=== PATIENT | female | born 1985 | race Caucasian/White ===

== ENCOUNTER 2016-06-29 15:13 | Outpatient (CLI) | payer MEDICAID | END 2016-06-29 23:59 | DX: M79.603 Pain in arm, unspecified (principal) ==

== ENCOUNTER 2016-07-04 14:55 | Outpatient (CLI) | payer MEDICAID | END 2016-07-04 14:56 | disposition home or self-care (01) | DX: M79.601 Pain in right arm (principal) ==

== ENCOUNTER 2016-11-02 18:28 | Outpatient (CLI) | payer MEDICAID | END 2016-11-02 18:29 | disposition critical access hospital (66) | LOC: EMS 18:28 | PROVIDERS: ATTEND Surgery | DX: R07.9 Chest pain, unspecified (principal) | CPT/HCPCS: A0425; A0429 ==

== ENCOUNTER 2016-11-02 18:41 | Emergency (ER) | payer MEDICAID ==
[2016-11-02 20:00] LABS: BASOPHILS # (AUTO) 0.1 10^3/uL (0.0-0.1); BASOPHILS % (AUTO) 0.5 %; EOSINOPHILS % (AUTO) 0.4 %; HGB - HEMOGLOBIN 13.6 g/dL (12.0-16.0); LYMPHOCYTES # (AUTO) 2.4 10^3/uL (1.5-3.5); MEAN CORPUSCULAR HEMOGLOBIN 29.8 pg (27.0-31.0); MEAN CORPUSCULAR HGB CONC 33.9 g/dL (32.0-36.0); MEAN CORPUSCULAR VOLUME 87.8 fL (81.0-99.0); MEAN PLATELET VOLUME 6.9 fL (7.9-10.8); MONOCYTES # (AUTO) 0.7 10^3/uL (0.0-1.0); NEUTROPHILS # (AUTO) 8.4 10^3/uL (1.5-6.6); NEUTROPHILS % (AUTO) 72.1 %; RED BLOOD COUNT 4.56 10^6/uL (4.20-5.40); RED CELL DISTRIBUTION WIDTH 13.9 % (12.0-15.0); UNCORRECTED WHITE BLOOD COUNT 11.6 x10^3/uL; WHITE BLOOD COUNT 11.6 x10^3/uL (4.8-10.8)
[2016-11-02 20:13] LABS: ALBUMIN/GLOBULIN RATIO 1.6 (1.0-2.2); BILIRUBIN,TOTAL 0.3 mg/dL (0.2-1.0); CALCIUM 9.4 mg/dL (8.5-10.3); CREATININE 0.9 mg/dL (0.4-1.0); POTASSIUM 3.4 mmol/L (3.5-5.0); TOTAL PROTEIN 7.5 g/dL (6.7-8.2)
[2016-11-02 20:46] VITALS: BP 112/75
--- NOTE | 2016-11-02 20:55 | XRAY Preliminary Report ---
Exam: XR Chest 1 View IMPRESSION: No acute intrathoracic plain film abnormality. [facility] SITE ID: [id number]
--- NOTE | 2016-11-02 20:57 | XRAY Report ---
EXAM: CHEST RADIOGRAPHY EXAM DATE: 11/02/2016 08:13 PM. CLINICAL HISTORY: Chest pain. COMPARISON: None. TECHNIQUE: 1 view. FINDINGS: Lungs/Pleura: No focal opacities evident. No pleural effusion. No pneumothorax. Mediastinum: Within exam limitations, cardiomediastinal contour is normal. Other: None. IMPRESSION: No acute intrathoracic plain film abnormality. [facility] Referring Provider Line: [phone] SITE ID: [id number]
--- NOTE | 2016-11-02 21:21 | ED Physician Documentation ---
PD HPI CHEST PAIN - Stated complaint Stated Complaint: CP/ANXIETY - Chief complaint Chief Complaint: Cardiac - History obtained from History obtained from: Patient, Family - History of Present Illness Timing - onset: How many hours ago (2) Timing - onset during: Light activity Timing - details: Gradual onset, Now resolved Quality: Pressure, Stabbing Location: Substernal, Left chest Improved by: Rest Associated symptoms: Shortness of air, Nausea, Feeling faint / dizzy, Palpitations. No: Vomiting Similar symptoms before: Has not had sx before Recently seen: Not recently seen - Additional information Additional information: Patient is a 31 year old female with a history of anxiety who is presenting to the emergency department for chest pressure and dizziness. 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 Patient reports that she was not sure if it was a panic attack or something else. patient was originally tachycardic in triage but upon my initial evaluation patient was awake, alert and asymptomatic with normal vital signs. Review of Systems Constitutional: denies: Fever, Chills, Myalgias Eyes: denies: Photophobia, Discharge Ears: denies: Ear pain, Drainage/discharge Nose: denies: Rhinorrhea / runny nose, Congestion Throat: denies: Dental pain / toothache, Sore throat Cardiac: reports: Chest pain / pressure. denies: Palpitations, Calf pain Respiratory: denies: Dyspnea, Cough, Wheezing GI: denies: Abdominal Pain, Nausea, Vomiting : denies: Dysuria, Frequency, Hesitancy, Hematuria, Vaginal bleeding Skin: denies: Rash, Lesions Musculoskeletal: denies: Neck pain, Back pain, Extremity pain Neurologic: denies: Generalized weakness, Focal weakness, Numbness Psychiatric: reports: Anxiety Immunocompromised: denies: Immunocompromised PD PAST MEDICAL HISTORY - Past Medical History Psych: Depression, Anxiety Other Past Medical History: former Percocet abuse - Past Surgical History Past Surgical History: Yes General: Cholecystectomy, 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 HEENT: Tonsil/Adenoidectomy - Present Medications Home Medications: Ambulatory Orders Medication Instructions Recorded Confirmed Sertraline HCl [Zoloft] 100 mg PO DAILY 11/19/13 11/02/16 Buprenorphine HCl/Naloxone HCl 1 tab PO DAILY 11/02/16 11/02/16 [Suboxone 8 mg-2 mg Sl Film] Ondansetron HCl [Zofran] 8 mg PO DAILY 11/02/16 11/02/16 diphenhydrAMINE [Benadryl] 750 mg PO DAILY 11/02/16 11/02/16 - Allergies Allergies/Adverse Reactions: Allergies Allergy/AdvReac Type Severity Reaction Status Date / Time Sulfa (Sulfonamide Allergy Rash Verified 01/19/16 12:54 Antibiotics) - Social History Does the pt smoke?: Yes Smoking Status: Current every day smoker Does the pt drink ETOH?: No Does the pt have substance abuse?: No - Immunizations Immunizations are current?: Yes PD ED PE NORMAL - Vitals Vital signs reviewed: Yes - General General: Alert and oriented X 3, No acute distress, Well developed/nourished - HEENT HEENT: Atraumatic, PERRL, Moist mucous membranes - Neck Neck: Supple, no meningeal sign, No JVD - Cardiac Cardiac: RRR, No murmur - Respiratory Respiratory: No respiratory distress, Clear bilaterally - Abdomen Abdomen: Soft, Non tender, Non distended - Derm Derm: Normal color, Warm and dry, No rash - Extremities Extremities: No deformity, No edema, No calf tenderness / cord - Neuro Neuro: Alert and oriented X 3, superintendent greens 2-12 intact, No motor deficit, No sensory deficit - Psych Psych: Normal mood Results - Vitals Vitals: Vital Signs - 24 hr 11/02/16 11/02/16 11/02/16 18:43 19:04 20:44 Heart Rate 113 H 102 H 82 Respiratory 18 25 H 21 Rate Blood Pressure 141/88 H 125/85 H 112/75 O2 Saturation 99 95 97 Oxygen O2 Source Room air - EKG (time done) 1901 Rate: Rate (enter#) (104) Rhythm: Sinus tachycardia Sells: Normal Intervals: Normal CA QRS: Normal Compare to prior EKG: Old EKG unavailable - Labs Labs: Laboratory Tests 11/02/16 11/02/16 11/02/16 19:50 19:50 19:50 WBC 11.6 H RBC 4.56 Hgb 13.6 Hct 40.0 MCV 87.8 MCH 29.8 MCHC 33.9 RDW 13.9 Plt Count 333 MPV 6.9 L Neut # 8.4 H Lymph # 2.4 Garden # 0.7 Eos # 0.0 Baso # 0.1 Absolute Nucleated RBC 0.01 Nucleated RBCs 0.0 Sodium 138 Potassium 3.4 L Chloride 106 Carbon Dioxide 23 Anion Gap 9.0 BUN 14 Creatinine 0.9 Estimated GFR (MDRD) 73 L Glucose 98 Calcium 9.4 Total Bilirubin 0.3 AST 20 ALT 22 Alkaline Phosphatase 81 Troponin I < 0.04 Total Protein 7.5 Albumin 4.6 Globulin 2.9 Albumin/Globulin Ratio 1.6 Lipase 22 - Rads (name of study) chest x-ray Radiology: Final report received (normal chest x-ray) PD MEDICAL DECISION MAKING - ED course Complexity details: reviewed old records, reviewed results, re-evaluated patient , considered differential, d/w patient, d/w family ED course: Patient was seen and examined at bedside. Patient had already started feeling better. IV access had been gained and labs had been drawn. ekg had showed sinus tach but patient was in a normal sinus rhthym at 78 bpm. Patient's oxygenation was 100% and patient was PERC negative. Patient's diagnostics including troponin and chest x-ray were all within normal limits. Patient had a low HEART and MELVINA score. No further work up was necessary at this time and patient was stable for discharge with outpatient follow up. Departure - Departure Disposition: 01 Home, Self Care Clinical Impression: Atypical chest pain Condition: Good Instructions: ED Chest Pain NonCardiac Follow-Up: primary,care provider [Other] - Within 1 week Comments: Your diagnostics today were within normal limits indicating that it is unlikely to be cardiac in nature. Although it was within normal limits today it is till prudent to follow up with your primary care physician. You can return to the emergency department at any time for new, worsening or uncontrollable symptoms. Discharge Date/Time: 11/02/16 22:30
== END 2016-11-02 22:30 | disposition home or self-care (01) ==
LOC: EDUNIT# → ED 18:41
DX: R07.89 Other chest pain (principal)
CPT/HCPCS: 36415; 71010; 80053; 83690; 84484; 85025; 93005; 99283; 99285

== ENCOUNTER 2021-06-06 14:48 | Outpatient (CLI) | payer MEDICAID | END 2021-06-06 23:59 | disposition home or self-care (01) | LOC: LAB.N 14:48 | PROVIDERS: ATTEND Physician Assistant | DX: R39.9 Unspecified symptoms and signs involving the genitourinary system (principal) | CPT/HCPCS: 87077; 87086; 87181 ==

== ENCOUNTER 2022-11-16 08:00 | Outpatient (CLI) | payer SELFPAY ==
[2022-11-17 14:06] LABS: BACTERIAL VAGINOSIS DNA NEGATIVE (NEGATIVE); CANDIDA GLABRATA DNA NEGATIVE (NEGATIVE); CANDIDA GROUP DNA NEGATIVE (NEGATIVE); CANDIDA KRUSEI DNA NEGATIVE (NEGATIVE); TRICHOMONAS VAGINALIS DNA NEGATIVE (NEGATIVE)
[2022-11-17 16:15] LABS: CHLAMYDIA TRACHOMATIS DNA NEGATIVE (NEGATIVE); NEISSERIA GONORRHOEAE DNA NEGATIVE (NEGATIVE)
== END 2022-11-16 23:59 | disposition home or self-care (01) ==
LOC: LAB.N 08:00
PROVIDERS: ATTEND Registered Nurse
DX: N89.8 Other specified noninflammatory disorders of vagina (principal)
CPT/HCPCS: 81514; 87491; 87591; 87661

== ENCOUNTER 2023-06-05 18:40 | Outpatient (CLI) | payer MEDICAID | END 2023-06-05 23:59 | disposition critical access hospital (66) | LOC: EMS 18:40 | DX: L08.9 Local infection of the skin and subcutaneous tissue, unspecified (principal) | CPT/HCPCS: A0425; A0429; A0999 ==

== ENCOUNTER 2023-06-05 18:58 | Inpatient (IN) | payer MEDICAID, OTHER ==
--- NOTE | 2023-06-05 19:20 | ED Physician Documentation ---
PD HPI UPPER EXT INJURY - Stated complaint Stated Complaint: LEFT SHOULDER PAIN/INFECTION - Chief complaint Chief Complaint: Ext Problem - History obtained from History obtained from: Patient - Additonal information Additional information: 38-year-old woman who is undomiciled and is using IV drugs. She actually does not know what drugs she used stating that "my boyfriend just inject them into me. She is homeless on the streets. She has been injecting in the left arm and now has an infection in the left deltoid. She cannot say how long it has been going on. She does feel sick and feverish. She denies any personal history of MRSA. 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 She is poorly kempt.) - Cardiac Cardiac: RRR, No murmur - Respiratory Respiratory: No respiratory distress, Clear bilaterally - Abdomen Abdomen: Normal bowel sounds, Soft, Non tender - Extremities Extremities: Other (There is a very large abscess over the left deltoid, fluctuant. Measures probably 15 to 20 cm x 10 to 15 cm) - Neuro Neuro: Alert and oriented X 3 - Psych Psych: Normal mood, Normal affect Results - Vitals Vitals: Vital Signs - 24 hr 06/05/23 06/05/23 06/05/23 19:05 20:23 20:31 Temperature 37.1 C 98.9 C H Heart Rate 107 H 103 H 100 Respiratory 20 20 20 Rate Blood Pressure 122/103 H 122/90 H 119/92 H O2 Saturation 98 100 100 If not protocol : Oxygen Flow, liters/minute 06/05/23 06/05/23 06/05/23 20:34 20:38 20:42 Temperature Heart Rate 112 H 126 H 128 H Respiratory 18 23 24 Rate Blood Pressure 120/86 H 146/109 H 145/103 H O2 Saturation 100 95 99 If not protocol 15 15 : Oxygen Flow, liters/minute Oxygen O2 Source Room air - Labs Labs: Laboratory Tests 06/05/23 06/05/23 06/05/23 19:37 19:37 19:37 WBC 16.7 H RBC 4.94 Hgb 13.8 Hct 40.9 MCV 82.8 MCH 27.9 MCHC 33.7 RDW 12.3 Plt Count 349 MPV 8.7 Neut # (Auto) 13.5 H Lymph # (Auto) 1.5 [place] # (Auto) 1.5 H Eos # (Auto) 0.1 Baso # (Auto) 0.1 Absolute Nucleated RBC 0.00 Nucleated RBC % 0.0 Sodium 134 L Potassium 3.5 Chloride 97 L Carbon Dioxide 25 Anion Gap 12.0 BUN 12 Creatinine 0.7 Estimated GFR (MDRD) 94 Glucose 89 Lactic Acid 1.2 Calcium 9.5 Total Bilirubin 0.6 AST 13 ALT 8 L Alkaline Phosphatase 88 Total Protein 7.6 Albumin 4.0 Globulin 3.6 Albumin/Globulin Ratio 1.1 Urine Color Urine Clarity Urine pH Ur Specific Russell Urine Protein Urine Glucose (UA) Urine Ketones Urine Occult Blood Urine Nitrite Urine Bilirubin Urine Urobilinogen Ur Leukocyte Esterase Urine RBC Urine WBC Ur Squamous Epith Cells Amorphous Sediment Urine Bacteria Ur Microscopic Review Urine Culture Comments Urine HCG, Qual Urine Opiates Screen Ur Buprenorphine Scrn Ur Oxycodone Screen Urine Methadone Screen Ur Barbiturates Screen Ur Tricyclics Screen Ur Phencyclidine Scrn Ur Amphetamine Screen U Methamphetamines Scrn U Benzodiazepines Scrn Urine Cocaine Screen U Cannabinoids Screen Ur Drug Screen Comment 06/05/23 19:56 WBC RBC Hgb Hct MCV MCH MCHC RDW Plt Count MPV Neut # (Auto) Lymph # (Auto) [place]lin # (Auto) Eos # (Auto) Baso # (Auto) Absolute Nucleated RBC Nucleated RBC % Sodium Potassium Chloride Carbon Dioxide Anion Gap BUN Creatinine Estimated GFR (MDRD) Glucose Lactic Acid Calcium Total Bilirubin AST ALT Alkaline Phosphatase Total Protein Albumin Globulin Albumin/Globulin Ratio Urine Color DARK YELLOW Urine Clarity CLOUDY Urine pH 6.0 Ur Specific Russell 1.025 Urine Protein 30 H Urine Glucose (UA) NEGATIVE Urine Ketones 15 H Urine Occult Blood NEGATIVE Urine Nitrite NEGATIVE Urine Bilirubin SMALL H Urine Urobilinogen 1 (NORMAL) Ur Leukocyte Esterase SMALL H Urine RBC 0-5 Urine WBC 6-10 H Ur Squamous Epith Cells MANY Squamous H Amorphous Sediment Rare Urine Bacteria Moderate H Ur Microscopic Review INDICATED Urine Culture Comments NOT INDICATED Urine HCG, Qual NEGATIVE Urine Opiates Screen NEGATIVE Ur Buprenorphine Scrn NEGATIVE Ur Oxycodone Screen NEGATIVE Urine Methadone Screen NEGATIVE Ur Barbiturates Screen NEGATIVE Ur Tricyclics Screen NEGATIVE Ur Phencyclidine Scrn NEGATIVE Ur Amphetamine Screen POSITIVE H U Methamphetamines Scrn POSITIVE H U Benzodiazepines Scrn NEGATIVE Urine Cocaine Screen NEGATIVE U Cannabinoids Screen NEGATIVE Ur Drug Screen Comment N Procedures - Abscess I&D (location) l DELTOID Preparation: Lidocaine 1% Incision: Incised with scalpel, Purulent drainage Other: Pt tolerated well, Dressing applied, Antibiotic prescribed, Other (Risk and benefits were discussed including scarring, bleeding, nerve injury, and risk of sedation and she signed formal consent. 500 mL of foul-smelling pus was vacuumed into suction. Packed with Kerlix.) - Procedural sedation Sedation prep: Informed consent, Time out completed, PE performed, ASA 2 - mild disease Sedation Medications: ketamine (200MG), versed (2MG) Mallampati classification: I Patient status during sedation: Unresponsive Sedation recovery: Recovered uneventfully Time in sedation (Minutes): 15 PD Medical Decision Making - ED course ED course: 38-year-old homeless IV drug user presents with very large deltoid abscess. It is a shooters abscess. She has a white count of 16,000, and does appear ill. She was sedated and a large I&D was done with total of 500 mL of pus into the vacuum container and packed with Kerlix. I discussed the case by phone with Dr. Ward who will follow along, for wound care, he is our general surgeon. Telehealth consultation placed at 8:50 PM. Departure - Departure Disposition: 66 [facility] DC/Xfer Clinical Impression: IV drug user, Abscess of deltoid region, Homeless Condition: Serious Forms: PCP List
[2023-06-05] MEDS: HYDROmorphone 1 MG/ML CARPUJECT IVP STA (19:40)
[2023-06-05] MEDS: SODIUM CHLORIDE 0.9% 1,000 ML IV STA (19:45)
[2023-06-05 19:59] LABS: BILIRUBIN,URINE SMALL (NEGATIVE); GLUCOSE, URINE (UA) NEGATIVE (NEGATIVE); KETONES,URINE (UA) 15 mg/dL (NEGATIVE); LEUKOCYTE ESTERASE, URINE SMALL (NEGATIVE); NITRITE,URINE NEGATIVE (NEGATIVE); OCCULT BLOOD,URINE NEGATIVE (NEGATIVE); PROTEIN,URINE 30 mg/dL (NEGATIVE); UROBILINOGEN,URINE 1 (NORMAL) E.U./dL (NORMAL)
[2023-06-05 20:02] LABS: BASOPHILS # (AUTO) 0.1 10^3/uL (0.0-0.1); BASOPHILS % (AUTO) 0.4 %; EOSINOPHILS # (AUTO) 0.1 10^3/uL (0.0-0.7); EOSINOPHILS % (AUTO) 0.8 %; HCT - HEMATOCRIT 40.9 % (37.0-47.0); HGB - HEMOGLOBIN 13.8 g/dL (12.0-16.0); LYMPHOCYTES # (AUTO) 1.5 10^3/uL (1.5-3.5); LYMPHOCYTES % (AUTO) 8.7 %; MEAN CORPUSCULAR HEMOGLOBIN 27.9 pg (27.0-31.0); MEAN CORPUSCULAR HGB CONC 33.7 g/dL (32.0-36.0); MEAN CORPUSCULAR VOLUME 82.8 fL (81.0-99.0); MEAN PLATELET VOLUME 8.7 fL (7.9-10.8); MONOCYTES # (AUTO) 1.5 10^3/uL (0.0-1.0); MONOCYTES % (AUTO) 8.9 %; NEUTROPHILS # (AUTO) 13.5 10^3/uL (1.5-6.6); NEUTROPHILS % (AUTO) 80.5 %; PLT - PLATELET COUNT 349 10^3/uL (130-450); RED BLOOD COUNT 4.94 10^6/uL (4.20-5.40); RED CELL DISTRIBUTION WIDTH 12.3 % (12.0-15.0); WHITE BLOOD COUNT 16.7 x10^3/uL (4.8-10.8)
[2023-06-05 20:03] LABS: CLARITY,URINE CLOUDY (CLEAR); HCG UR QUAL NEGATIVE
[2023-06-05 20:13] LABS: AMORPHOUS SEDIMENT,UR Rare /LPF; BACTERIA,URINE Moderate /HPF (None Seen); COCAINE SCREEN URINE NEGATIVE (NEGATIVE); METHAMPHETAMINES SCREEN, URINE POSITIVE (NEGATIVE); OPIATE SCREEN, URINE NEGATIVE (NEGATIVE); RBC,URINE 0-5 /HPF (0-5); SQUAMOUS EPITHELIAL CELL,UR MANY Squamous (<= Few); THC CANNABINOID SCREEN, URINE NEGATIVE (NEGATIVE)
[2023-06-05 20:14] LABS: AMPHETAMINE SCREEN,URINE POSITIVE (NEGATIVE); BARBITURATE SCREEN,UR NEGATIVE (NEGATIVE); BENZODIAZEPINES SCREEN, URINE NEGATIVE (NEGATIVE); BUPRENORPHINE SCREEN, URINE NEGATIVE (NEGATIVE); METHADONE SCREEN, URINE NEGATIVE (NEGATIVE); OXYCODONE SCREEN, URINE NEGATIVE (NEGATIVE); TRICYCLIC ANTIDEPRESSANT,URINE NEGATIVE (NEGATIVE)
[2023-06-05 20:15] LABS: ALBUMIN/GLOBULIN RATIO 1.1 (1.0-2.2); BILIRUBIN,TOTAL 0.6 mg/dL (0.2-1.0); CALCIUM 9.5 mg/dL (8.5-10.3); CREATININE 0.7 mg/dL (0.6-1.3); POTASSIUM 3.5 mmol/L (3.5-4.5); TOTAL PROTEIN 7.6 g/dL (6.4-8.9)
[2023-06-05] MEDS: MIDAZOLAM 2 MG/2 ML VIAL IVP STA (20:26)
[2023-06-05] MEDS: KETAMINE 500 MG/10 ML VIAL IVP STA (20:28)
[2023-06-05] MEDS: BUFFERED LIDOCAINE 10 ML SYRINGE SUBQ STA (20:29)
[2023-06-05] MEDS ORDERED: VANCOMYCIN 1 GM VIAL ONE (20:46)
[2023-06-05] MEDS: VANCOMYCIN INJ 1.25 GM in SODIUM CHLORIDE 0.9% 500 ML IV STA (20:56)
--- NOTE | 2023-06-05 21:01 | HISTORY & PHYSICAL EXAMINATION ---
Chief Complaint - Chief Complaint Chief Complaint: left arm pain History of Present Illness - Admitted From Admitted From:: homeless - History of Present Illness HPI Comment/Other: 38 y/o F presented to the ED with left upper arm swelling and pain. She does not know when it started but she is IVDU and injects in that area regularly. Pt complains of chills but denies cp, sob, n/v/d/abd pain In the ED, she was found to have a large 20x10 cm fuctuant mass which was I&D performed and 500 ML pus removed. Per ED doc area appeared contained with no concern for nec fasc and it was discussed with surgeon recreational facilities motel manager who recommended admission and antibiotics. 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 HEENT: reports: Tonsil/Adenoidectomy - POLST Patient has POLST: No Meds/Allgy - Allergies Allergies/Adverse Reactions: Allergies Allergy/AdvReac Type Severity Reaction Status Date / Time Sulfa (Sulfonamide Allergy Rash Verified 06/05/23 19:19 Antibiotics) Review of Systems - Other Findings Other Findings: ros negative except for HPI Exam - Vital Signs Vital Signs: Vital Signs x48h Temp Pulse Resp BP Pulse Ox O2 Flow Rate 06/05/23 20:42 128 H 24 145/103 H 99 06/05/23 20:38 126 H 23 146/109 H 95 15 06/05/23 20:34 112 H 18 120/86 H 100 15 06/05/23 20:31 98.9 C H 100 20 119/92 H 100 06/05/23 20:23 103 H 20 122/90 H 100 06/05/23 19:05 37.1 C 107 H 20 122/103 H 98 - Physical Exam General Appearance: positive: No acute distress Eyes Bilateral: positive: Normal inspection ENT: positive: ENT inspection nml Neck: positive: Nml inspection Respiratory: positive: Chest non-tender Cardiovascular: positive: Regular rate & rhythm Abdomen: positive: Non-tender Skin: positive: Other (left deltoid area dressed now after I&D) Conclusion/Plan - Lab Results Fish Bones: 06/05/23 19:37 06/05/23 19:37 - Other Other Results/Comments: 38 y/o F # left deltoid abcess and cellulitis in homeless pt with IVDU: s/p I&D, wound care, surgery consulted, iv vanc and zosyn follow culture # pain control # IVDU: pt does not know exactly what she injects as given to her by b/f. watch for withdrawals # full code I performed this consultation using real-andres telehealth tools including a live video connection between my location and the patient's location. As the provider for this telehealth service, I attest that I introduced myself to the patient and/or the family, provided my credentials, disclosed my location and determined that based on my review of patient's chart and/or discussion with members of the patient's treatment team, telemedicine via real time, 2 way, interactive audio and video platform is an appropriate and effective means of providing service. The patient/family and I mutually agree that this visit is appropriate for telemedicine as well. Patients have been informed of and agreed to telemedicine management by partnership of [employer] and hospital administration, knowing the limitations of telemedicine. Some elements of this visit were assisted with the audiovisual technology and the bedside nurse. Total time is 45 minutes of which greater than 50% was spent in direct patient care. I answered all medical questions to the best of my ability.
[2023-06-05] MEDS ORDERED: SODIUM CHLORIDE FLUSH 0.9% 10 ML SYRINGE IVP PRN (21:11)
[2023-06-05] MEDS ORDERED: SODIUM CHLORIDE 0.9% IV SCH (22:00)
[2023-06-05] MEDS ORDERED: VANCOMYCIN IV SCH (22:00)
[2023-06-05] MEDS: MORPHINE 2 MG/ML CARPUJECT IVP PRN (22:24)
[2023-06-06] MEDS: PIPERACILLIN/TAZOBACTAM 3.375 GM in SODIUM CHLORIDE 0.9% MINIBAG 100 ML IV STA (00:40)
[2023-06-06] MEDS: oxyCODONE 5 MG TABLET PO PRN (00:42)
[2023-06-06] MEDS: SODIUM CHLORIDE FLUSH 0.9% 10 ML SYRINGE IVP SCH (00:44)
[2023-06-06] MEDS ORDERED: PIPERACILLIN/TAZOBACTAM 3.375 GM in SODIUM CHLORIDE 0.9% MINIBAG 100 ML IV SCH (02:00)
[2023-06-06] MEDS: ACETAMINOPHEN 325 MG TABLET PO PRN (02:48)
[2023-06-06] MEDS: PIPERACILLIN/TAZOBACTAM 3.375 GM in SODIUM CHLORIDE 0.9% MINIBAG 100 ML IV SCH (04:58)
[2023-06-06 09:03] VITALS: BP 104/63; O2SAT 98
[2023-06-06] MEDS: VANCOMYCIN INJ 1 GM in SODIUM CHLORIDE 0.9% 250 ML IV SCH (09:11)
--- NOTE | 2023-06-06 13:18 | PHARMACY PROGRESS NOTE ---
- Therapy Status Vancomycin regimen day #: 2 Therapy status: Awaiting steady state Basis for treatment: Empirical Treatment indication: CELLULITIS Trough goal: 10-15 Concurrent antibiotics: ZOSYN - DEZ Risk Acute Kidney Injury risk factors: Piperacillin/Tozobactam - Monitoring and Recommendation Clinical response to treatment: I&O Previous 24 hours 06/04/23 06/05/23 06/06/23 23:59 23:59 23:59 Intake Total 11.133 Balance 11.133 Lab Results 06/05/23 19:37 BUN 12 Creatinine 0.7 Estimated GFR (MDRD) 94 Areas for additional monitoring: IV to PO when appropriate, Therapy de- escalation based on culture results, Acute Kidney Injury Pharmacy recommendation: Continue current regime
--- NOTE | 2023-06-06 13:28 | CONSULTATION NOTE ---
Referring Provider Name of Referring Provider:: Dr. Emory Henry Consult Date: 06/06/23 Chief Complaint - Chief Complaint Chief Complaint: Left deltoid open wound following incision and drainage of abscess History of Present Illness - Admitted From Admitted From:: Emergency department - History Obtained From Records Reviewed: Yes History obtained from: Primarily the chart as the patient is not thoroughly conversational Exam Limitations: Patient's mental state - History of Present Illness HPI Comment/Other: Patient is an unfortunate 38-year-old female who is homeless and an illicit drug user. Review of her tox screen indicates methamphetamines/amphetamines. She skin pops. In my conversations with her today she is aware of where she is and who she is but keeping her focused on topics is exceedingly difficult. 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 Exam - Vital Signs Reviewed Vital Signs: Yes Vital Signs: Vital Signs x48h Temp Pulse Pulse Resp BP Pulse Ox 06/06/23 08:15 36.6 C 94 18 104/63 98 06/06/23 05:29 78 22 - Physical Exam Extremities: positive: Other (I performed a very targeted physical examination looking almost solely at the wound in the left upper aspect of her shoulder (deltoid). The dressing was removed as was the packing. The packing and fibrin no purulent material on it but the wound itself was exceptionally clean. This was packed with) Conclusion and Plan - Lab Results Laboratory Results 06/05/23 19:56: Urine Color DARK YELLOW, Urine Clarity CLOUDY, Urine pH 6.0, Ur Specific [place] 1.025, Urine Protein 30 H, Urine Glucose (UA) NEGATIVE, Urine Ketones 15 H, Urine Occult Blood NEGATIVE, Urine Nitrite NEGATIVE, Urine Bilirubin SMALL H, Urine Urobilinogen 1 (NORMAL), Ur Leukocyte Esterase SMALL H, Urine RBC 0-5, Urine WBC 6-10 H, Ur Squamous Epith Cells MANY Squamous H, Amorphous Sediment Rare, Urine Bacteria Moderate H, Ur Microscopic Review INDICATED, Urine Culture Comments NOT INDICATED, Urine HCG, Qual NEGATIVE, Urine Opiates Screen NEGATIVE, Ur Buprenorphine Scrn NEGATIVE, Ur Oxycodone Screen NEGATIVE, Urine Methadone Screen NEGATIVE, Ur Barbiturates Screen NEGATIVE, Ur Tricyclics Screen NEGATIVE, Ur Phencyclidine Scrn NEGATIVE, Ur Amphetamine Screen POSITIVE H, U Methamphetamines Scrn POSITIVE H, U Benzodiazepines Scrn NEGATIVE, Urine Cocaine Screen NEGATIVE, U Cannabinoids Screen NEGATIVE, Ur Drug Screen Comment N 06/05/23 19:37: Lactic Acid 1.2 06/05/23 19:37: Sodium 134 L, Potassium 3.5, Chloride 97 L, Carbon Dioxide 25, Anion Gap 12.0, BUN 12, Creatinine 0.7, Estimated GFR (MDRD) 94, Glucose 89, Calcium 9.5, Total Bilirubin 0.6, AST 13, ALT 8 L, Alkaline Phosphatase 88, Total Protein 7.6, Albumin 4.0, Globulin 3.6, Albumin/Globulin Ratio 1.1 06/05/23 19:37: WBC 16.7 H, RBC 4.94, Hgb 13.8, Hct 40.9, MCV 82.8, MCH 27.9, MCHC 33.7, RDW 12.3, Plt Count 349, MPV 8.7, Neut # (Auto) 13.5 H, Lymph # (Auto) 1.5, Curry # (Auto) 1.5 H, Eos # (Auto) 0.1, Baso # (Auto) 0.1, Absolute Nucleated RBC 0.00, Nucleated RBC % 0.0 - Diagnosis Diagnosis: Large subcutaneous abscess due to skin popping with illicit drugs. This has been drained and left open to heal by secondary intention. - Consultation Note Consultation Note: I remove the packing today and repacked it with saline moistened gauze. Normally if the patient's social situation would allow it this would heal faster with a wound VAC however considering her social situation I do not think that a wound VAC would be appropriately taken care of it would likely be a liability. As such I would recommend continue wet-to-dry dressing changes packing the wound loosely to ensure that it remains open and heals from the bottom up. In addition I recommend that the patient have the packing removed every single day and wash the wound with soap and water allowing soapy water to enter the wound and exit the wound. After the patient's shower the patient should have the wound packed. I appreciate the opportunity to precipitate in this patient's care. CPT 78208 - Plan Plan: Continued wet-to-dry dressing changes until the wound heals by secondary intention. Attempt to get the patient drug-free and domiciled.
--- NOTE | 2023-06-06 18:49 | PROVIDER PROGRESS NOTE ---
Progress Note Gill Lazcano left hospital AGAINST MEDICAL ADVICE this afternoon. She refused to sign the AGAINST MEDICAL ADVICE form.
--- NOTE | 2023-06-06 21:15 | DISCHARGE SUMMARY ---
"Discharge Summary Admit Date: 06/05/23 Discharge Date: 06/06/23 Discharging Provider: Emory Davila MD Code Status: Attempt Resuscitation Condition at Discharge: Fair Discharge Disposition: 01 Home, Self Care - DIAGNOSES Admission Diagnoses: 1. Deltoid Abscess Discharge Diagnoses with Status of Each Condition: 1. Deltoid Abscess 2. Methamphetamine Abuse - HPI History of Present Illness: Per Dr. Byron Pisano history and and physical: 38 y/o F presented to the ED with left upper arm swelling and pain. She does not know when it started but she is IVDU and injects in that area regularly. Pt complains of chills but denies cp, sob, n/v/d/abd pain In the ED, she was found to have a large 20x10 cm fuctuant mass which was I&D performed and 500 ML pus removed. Per ED doc area appeared contained with no concern for nec fasc and it was discussed with surgeon correctional medicine physician who recommended admission and antibiotics. - CONSULTS | PROCEDURES Consultations: 06/06/23 General Surgery Procedures: 06/05/2023 Incision and drainage of deltoid abscess - HOSPITAL COURSE Hospital Course: Gill Lazcano Was admitted to the hospital and treatment was initiated with broad-spectrum antibiotics after incision and drainage of her deltoid abscess.Broad-spectrum antibiotic coverage was initiated with Zosyn and vancomycin. The patient was evaluated by Dr. Ward of general surgery and he recommended continuing wet-to-dry dressing changes and packing the wound loosely to ensure healing from the bottom up. Unfortunately, the patient decided to leave AGAINST MEDICAL ADVICE. She was given the opportunity to sign the AGAINST MEDICAL ADVICE paperwork and she refused. - ALLERGIES Allergies/Adverse Reactions: Allergies Allergy/AdvReac Type Severity Reaction Status Date / Time Sulfa (Sulfonamide Allergy Rash Verified 06/06/23 20:05 Antibiotics) - MEDICATIONS Home Medications: Ambulatory Orders Medication Instructions Recorded Confirmed No Known Home Medications 06/06/23 06/06/23 - PHYSICAL EXAM AT DISCHARGE General Appearance: positive: Other (Patient was not examined because she left AGAINST MEDICAL ADVICE.) - LABS Result Diagrams: 06/05/23 19:37 06/05/23 19:37 - FOLLOW UP Follow Up: Patient left AGAINST MEDICAL ADVICE. - TIME SPENT Time Spent in Discharge (Minutes): 20"
== END 2023-06-06 14:10 | disposition home or self-care (01) | DRG 603 ==
LOC: EDUNIT# → ED 18:58 → MS2 21:12
PROVIDERS: ADMIT Hospitalist; ATTEND Internal Medicine
PROC: 0J9F0ZZ Drainage of Left Upper Arm Subcutaneous Tissue and Fascia, Open Approach (ICD-10-PCS; principal; 2023-06-05)
DX: L02.414 Cutaneous abscess of left upper limb (principal); Z59.02 Unsheltered homelessness; F15.10 Other stimulant abuse, uncomplicated; F17.200 Nicotine dependence, unspecified, uncomplicated; Z32.02 Encounter for pregnancy test, result negative; Z88.2 Allergy status to sulfonamides; Z90.49 Acquired absence of other specified parts of digestive tract; Z98.51 Tubal ligation status
CPT/HCPCS: 36415; 80053; 80306; 81001; 81025; 83605; 85025; 87040; 87070; 87205; A9270; J1170; J3370; 81003; 87086

== ENCOUNTER 2023-06-06 19:51 | Outpatient (CLI) | payer MEDICAID | END 2023-06-06 23:59 | disposition critical access hospital (66) | LOC: EMS 19:51 | DX: S41.112A Laceration without foreign body of left upper arm, initial encounter (principal); X58.XXXA Exposure to other specified factors, initial encounter; Y92.238 Other place in hospital as the place of occurrence of the external cause; R45.851 Suicidal ideations; F15.90 Other stimulant use, unspecified, uncomplicated | CPT/HCPCS: A0425; A0429; A0999 ==

== ENCOUNTER 2023-06-06 19:53 | Observation (INO) | payer MEDICAID ==
--- NOTE | 2023-06-06 19:53 | ED Physician Documentation ---
PD HPI UPPER EXT INJURY - Stated complaint Stated Complaint: L ARM WOUND
--- NOTE | 2023-06-06 19:56 | ED Physician Documentation ---
History of Present Illness - Stated complaint Stated Complaint: L ARM WOUND - History obtained from History obtained from: Patient, EMS - Additonal information Additional information: BIBA. HPI from EMS, patient. I have also reviewed notes from her ER visit yesterday, surgical consult note from earlier today. Patient was in this emergency department yesterday for the left upper extremity abscess over the left deltoid. Patient is undomiciled, injects drugs ("skin pops", per surgical consult note that I reviewed), and this is thought to be the reason for the left deltoid abscess for which she presented to this ER yesterday. The abscess was drained in the emergency department but due to its size and depth, as well as considering patient's limited access to medical care and questionable ability to care for the wound herself, she was admitted to [facility]. She was receiving IV antibiotics on a scheduled basis but left abruptly AGAINST MEDICAL ADVICE this afternoon. Tonight, she went to a local police station requesting an ambulance to take her back to the hospital. Apparently, she was very reluctant to discuss much regarding her HPI and recent visit with police and with EMS. However, she did indicate to EMS that she had used "uppers" (per EMS) after leaving the hospital this afternoon. On my H&P, she is providing few answers to my questions, but is answering enough of my questions to provide adequate information for purposes of this ED evaluation (mostly with nodding/shaking her head, but occasionally verbalizes, as well). She tells me "I left before, it was a stupid decision".I asked her if she is interested in further treatment, specifically inpatient, and she indicates that she is agreeable to inpatient treatment at this time. She answers in the affirmative every time I ask (I asked her this question 3 differe nt times during H&P). 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: Tubal ligation HEENT: Tonsil/Adenoidectomy - Present Medications Home Medications: Ambulatory Orders Medication Instructions Recorded Confirmed No Known Home Medications 06/06/23 06/06/23 - Allergies Allergies/Adverse Reactions: Allergies Allergy/AdvReac Type Severity Reaction Status Date / Time Sulfa (Sulfonamide Allergy Rash Verified 06/06/23 20:05 Antibiotics) - Social History Does the pt smoke?: Yes Smoking Status: Current every day smoker Does the pt drink ETOH?: No Does the pt have substance abuse?: Yes - Immunizations Immunizations are current?: Yes - POLST Patient has POLST: No PD ED PE NORMAL - Vitals Vital signs reviewed: Yes - General General: Other (dissheveled; eye contact is intermittent/fleeting. ) - HEENT HEENT: PERRL, EOMI - Cardiac Cardiac: RRR, No murmur - Respiratory Respiratory: No respiratory distress, Clear bilaterally PD ED PE EXPANDED - Extremities LJ UE/Hands Visual: 1 - laceration (surgical incision site is 6 cm length, 1-2 cm wide, 1 cm depth (down to fascia overlying muscle). there is scant purulent drainage on gauze (both packed into wound as well as the dressing over the wound)) Results - Vitals Vitals: Vital Signs - 24 hr 06/06/23 19:59 Temperature 36.7 C Heart Rate 94 Respiratory 15 Rate Blood Pressure 114/83 H O2 Saturation 99 Oxygen O2 Source Room air PD Medical Decision Making - ED course Complexity details: reviewed old records, considered differential, d/w patient ED course: Patient returns to [facility] after leaving several hours ago having had left upper extremity abscess drained in the ED with subsequent admission, was receiving IV antibiotics when she left AMA earlier today. Patient is exhibiting odd behavior but does express to me that she is agreeable to readmission to [facility]; I believe she would benefit from this for ongoing IV antibiotics, dressing changes and further wound care. I discussed this case with the [facility] practitioner who accepts patient for admission to [facility]. There was extensive delay in getting the patient admitte d due to difficulty obtaining IV access. ED RNs were unable to establish peripheral IV despite multiple attempts.Based on my exam and my discussion with the emergency department nurses, the difficulty obtaining access appears to be combination of difficulty finding peripheral veins (possibly due to long-term IV drug use) as well as patient exhibiting gradually increasing anxiety, hyperkinetic movements and twitching. I discussed with the patient the necessity of obtaining IV access in order to resume intravenous antibiotics. The patient says she understands this but says she is feeling very anxious and insists that her movements are not voluntary. I explained to her that I can order an injection of lorazepam; I explained what this medication is and that, in this particular case, it can help with her anxiety and her writhing and frequent twitching movements. She says she would like this medication. She was given 2 mg IM lorazepam. Note that the patient was not nearly as anxious and hyperkinetic when she first arrived; thus, I would be more suspicious of withdrawal from a substance rather than effect of acute use (in the latter case, would expect symptoms to be most pronounced on ED arrival). After sufficient time for the lorazepam to have taken effect, the ED nurses tried again to obtain IV access but ran into the same problems; in fact, the patient was even more anxious and hyperkinetic at that point. Both ED RNs and myself were unable to obtain IV access. Again, this seems to be due to a combination of possibly sclerosed veins but also due to difficulty with patient being able to lie still. The patient tells me that the lorazepam "did not do anything". I then r ecommended to her that we give her a dose of Zyprexa as an injection; I again explained what this medication is and what the desired effect is (anxiolysis and that patient is able to lie still to enable peripheral IV placement). Again, patient says she would very much like the medication and is wanting the sedative effect and the anxiolysis, as well. I contacted anesthesiology on-call (Yareli) to help with IV access. She graciously came to the ED to obtain IV access but patient was still not adequately calm and still twitching and moving around. Patient continues to insist she is trying to lie still but cannot. I then discussed with the patient the option of a yet- stronger medication, specifically ketamine. As was the case with the lorazepam and the Zyprexa, the ketamine is not being given as a chemical restraint; rather, it is being given after discussion with the patient and her express consent and desire to have these medications in order to achieve anxiolysis so that she is able to lie still and IV access can be obtained. Thus, patient is given 3 mg/kg IM ketamine. Fortunately, this finally resulted in adequate anxiolysis and cooperative behavior such that anesthesiology was able to place left upper extremity IV access. Patient's vital signs remained stable throughout ED stay, there was no respiratory depression nor desaturation. She recovered uneventfully and was transferred to the floor. Departure - Departure Disposition: [facility] DC/Xfer Clinical Impression: Abscess of left arm Condition: Good Discharge Date/Time: 06/07/23 01:02
--- NOTE | 2023-06-06 21:33 | HISTORY & PHYSICAL EXAMINATION ---
Chief Complaint - Chief Complaint Chief Complaint: left cellulitis c abscess History of Present Illness - Admitted From Admitted From:: ED - History Obtained From Records Reviewed: EMR History obtained from: Patient, ED, and EMR Exam Limitations: Tele medicine - History of Present Illness HPI Comment/Other: 38YOF IV drug abuse. recently hospitalized for left shoulder cellulitis with abscess. She is s/p I&D of the cellulitis c abscess and was on IV abx before leaving AMA earlier today. Patient is not forth coming as to the reason for leaving AMA. She states no significant change in status of her left shoulder cellulitis since leaving ama. 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 patient not willing to participate in conversation. Exam - Vital Signs Reviewed Vital Signs: Yes Vital Signs: Vital Signs x48h Temp Pulse Resp BP Pulse Ox 06/06/23 19:59 36.7 C 94 15 114/83 H 99 - Physical Exam General Appearance: positive: No acute distress Eyes Bilateral: positive: Normal inspection ENT: positive: ENT inspection nml Neck: positive: Nml inspection Conclusion/Plan - Problem List (1) Cellulitis and abscess of upper extremity Conclusion/Plan: left shoulder cellulitis. s/p I & D and was on abx. followup cultures. continue abx. pain control. likely underlying undiagnosed psychiatric disorder that is blocking proper management. day team to consider social media marketing analyst to assist with outpatient management and followup. - Lab Results Lab results reviewed: Yes Core Measures - Anticipated LOS I expect patient to be DC'd or transferred within 96 hours.: Yes - Issues Hospital Issues and Management Plan: The patient consented to receive this telemedicine service, which I performed via live two-way audiovisual equipment. The patient is at ([facility]) and I am physically in [facility]. A nurse assisted me in the visit. - DVT/VTE - Prophylaxis VTE/DVT Device ordered at admit?: Yes Telemedicine Consult Details - Provider Location & Consult Time Telemedicine consultation conducted via videoconferencing?: Yes List names and roles of persons who participated in consult:: ED staff and patient Telemedicine provider location:: [facility] Time Telemedicine consult began:: 21:12 Time Telemedicine consult completed:: 21:42
[2023-06-06] MEDS: LORazepam 2 MG/ML VIAL IM STA ×2 (21:48→22:56)
[2023-06-06] MEDS: OLANZapine 10 MG VIAL IM ONE (23:01)
[2023-06-06] MEDS: KETAMINE 500 MG/10 ML VIAL IM STA (23:50)
[2023-06-07 00:19] LABS: BASOPHILS % (AUTO) 0.4 %; EOSINOPHILS % (AUTO) 0.3 %; HCT - HEMATOCRIT 35.1 % (37.0-47.0); HGB - HEMOGLOBIN 11.6 g/dL (12.0-16.0); LYMPHOCYTES % (AUTO) 20.9 %; MEAN CORPUSCULAR HEMOGLOBIN 27.7 pg (27.0-31.0); MEAN CORPUSCULAR VOLUME 83.8 fL (81.0-99.0); MEAN PLATELET VOLUME 8.3 fL (7.9-10.8); MONOCYTES # (AUTO) 0.6 10^3/uL (0.0-1.0); MONOCYTES % (AUTO) 6.3 %; NEUTROPHILS # (AUTO) 6.9 10^3/uL (1.5-6.6); NEUTROPHILS % (AUTO) 71.1 %; PLT - PLATELET COUNT 335 10^3/uL (130-450); RED BLOOD COUNT 4.19 10^6/uL (4.20-5.40); RED CELL DISTRIBUTION WIDTH 12.7 % (12.0-15.0); WHITE BLOOD COUNT 9.8 x10^3/uL (4.8-10.8)
--- NOTE | 2023-06-07 00:25 | CONSULTATION NOTE ---
Consultation Report: Called for IV access. On arrival, patient was disoriented, not responding to verbal commands and she was moving her body erratically. She was unable to cooperate or remain still for safe IV placement. ER physician provided ketamine sedation to assist with IV placement. After patient was adequately sedated, a 20G 2.25 inch accucath IV was placed in the right basilic vein under US guidance. Line aspirates and flushes with ease. Tolerated well and was left in the care of the CLEARANCE CUTTER and physician.
[2023-06-07 00:38] LABS: ALBUMIN 3.5 g/dL (3.2-5.5); ALBUMIN/GLOBULIN RATIO 1.1 (1.0-2.2); ALKALINE PHOSPHATASE 69 IU/L (42-121); ALT ALANINE AMINOTRANSFERASE 6 IU/L (10-60); AST ASPARTATE AMINOTRANSFERASE 9 IU/L (10-42); BILIRUBIN,TOTAL 0.3 mg/dL (0.2-1.0); BUN - BLOOD UREA NITROGEN 6 mg/dL (6-20); CALCIUM 8.7 mg/dL (8.5-10.3); CARBON DIOXIDE - CO2 24 mmol/L (21-32); CHLORIDE 107 mmol/L (101-111); CREATININE 0.6 mg/dL (0.6-1.3); ETOH - ETHANOL < 10.0 mg/dL; GFR - MDRD 112 (>89); GLUCOSE 91 mg/dL (74-104); LIPASE 13 U/L (11-82); SODIUM 141 mmol/L (135-145); TOTAL PROTEIN 6.6 g/dL (6.4-8.9)
[2023-06-07] MEDS: cefTRIAXone 2 GM in SODIUM CHLORIDE 0.9% MINIBAG 100 ML IV SCH (02:25)
[2023-06-07] MEDS: SODIUM CHLORIDE FLUSH 0.9% 10 ML SYRINGE IVP SCH (02:40)
[2023-06-07] MEDS: VANCOMYCIN INJ 1.5 GM in SODIUM CHLORIDE 0.9% 500 ML IV ONE (03:22)
[2023-06-07 03:51] LABS: AMPHETAMINE SCREEN,URINE NEGATIVE (NEGATIVE); BARBITURATE SCREEN,UR NEGATIVE (NEGATIVE); BENZODIAZEPINES SCREEN, URINE POSITIVE (NEGATIVE); BUPRENORPHINE SCREEN, URINE NEGATIVE (NEGATIVE); COCAINE SCREEN URINE NEGATIVE (NEGATIVE); METHADONE SCREEN, URINE NEGATIVE (NEGATIVE); METHAMPHETAMINES SCREEN, URINE NEGATIVE (NEGATIVE); OPIATE SCREEN, URINE POSITIVE (NEGATIVE); OXYCODONE SCREEN, URINE POSITIVE (NEGATIVE); THC CANNABINOID SCREEN, URINE NEGATIVE (NEGATIVE); TRICYCLIC ANTIDEPRESSANT,URINE NEGATIVE (NEGATIVE)
[2023-06-07] MEDS: HALOPERIDOL 5 MG/ML VIAL IM ONE (07:32)
[2023-06-07 08:57] LABS: CHOL/HDL RATIO 3.5 (<4.4); CHOLESTEROL 105 mg/dL; HDL CHOLESTEROL 30 mg/dL; LDL CHOLESTEROL,CALCULATED 60 mg/dL; TRIGLYCERIDES 74 mg/dL (48-352); VLDL CHOLESTEROL 15 mg/dL
[2023-06-07 09:12] LABS: PROCALCITONIN 0.18 ng/mL (<0.5); THYROID STIMULATING HORMONE 3.43 uIU/mL (0.34-5.60)
[2023-06-07] MEDS: VANCOMYCIN INJ 1 GM in SODIUM CHLORIDE 0.9% 250 ML IV SCH (09:12)
[2023-06-07 09:36] LABS: HIV RAPID SCREEN NEGATIVE (NEGATIVE)
--- NOTE | 2023-06-07 10:21 | PHARMACY PROGRESS NOTE ---
- Therapy Status Vancomycin regimen day #: 3 Therapy status: Awaiting steady state Basis for treatment: Empirical Treatment indication: CELLULITIS Trough goal: 10-15 Concurrent antibiotics: CTX - DEZ Risk Risk level for Acute Kidney Injury: Moderate - Monitoring and Recommendation Areas for additional monitoring: IV to PO when appropriate, Therapy de- escalation based on culture results, Acute Kidney Injury Pharmacy recommendation: Continue current regime (SEEN IN ED 06/05 PM. LOADED WITH 1.5G VANCO AND CONTINUED ON 1G Q12H. PATIENT LEFT AMA 06/06 AND RETURNED. RELOADED WITH 1.5G VANCO 06/06 PM. INCREASE DOSE TO 1G Q8H TO TARGET TROUGH ~14.)
--- NOTE | 2023-06-07 10:39 | PHARMACY PROGRESS NOTE ---
- Best Possible Medication History Admit Date and Time: 06/06/232121 Processed by: Nursing Medications reviewed in ED?: Yes Medication History completed: Yes Patient Interview: Completed As the person ultimately responsible for medication therapy, providers are able to order a medication from an existing home medication list in [facility] via the "Reconcile Routine" prior to Confirmation of that medication by support services coordinator. Such practice is discouraged except when the physician, in their clinical judgment, deems that a medical need exists for a medication without regard to previous use.
[2023-06-07 11:00] LABS: ESTIMATED AVERAGE GLUCOSE 91 mg/dL (70-100); HEMOGLOBIN A1c% 4.8 % (4.27-6.07)
[2023-06-07] MEDS: POTASSIUM CHLORIDE 20 MEQ/15 ML UDC PO SCH (12:09)
[2023-06-07] MEDS: HYDROcod/ACETAM 5/325 MG TABLET PO PRN (12:25)
[2023-06-07] MEDS: ONDANSETRON 4 MG/2 ML VIAL IVP PRN (14:48)
[2023-06-07] MEDS: ACETAMINOPHEN 325 MG TABLET PO PRN (16:21)
--- NOTE | 2023-06-07 17:52 | PROVIDER PROGRESS NOTE ---
Assessment/Plan - Problem List (1) Cellulitis and abscess of upper extremity Assessment/Plan: Continue empiric antibiotic coverage with ceftriaxoneand and vancomycin. (2)Methamphetamine dependence Comments: Unfortunately there are no proven protocols or medications that improve symptoms of methamphetamine withdrawal. Continue conservative treatment. - Current Meds Current Meds: Current Medications Generic Name Dose Route Start Last Admin Trade Name Freq PRN Reason Stop Dose Admin Acetaminophen 650 mg 06/06/23 21:23 06/07/23 16:21 Acetaminophen 325 Mg Tablet PO 650 mg Q4HR PRN Administration Pain 1 to 4, or Fever Hydrocodone Bitart/Acetaminophen 1 tab 06/06/23 21:23 06/07/23 16:21 Hydrocod/Acetam 5/325 Mg Tablet PO 1 tab Q4HR PRN Administration Pain 5 to 7 Ceftriaxone Sodium 2 gm/ 100 mls @ 200 mls/hr 06/06/23 22:00 06/07/23 03:00 Sodium Chloride IV Infused Q24H ELIESER Infusion Vancomycin HCl 1 gm/ Sodium 250 mls @ 167 mls/hr 06/07/23 09:00 06/07/23 11:57 Chloride IV 06/08/23 00:00 Infused Q12H ELIESER Infusion Ondansetron HCl 4 mg 06/06/23 21:23 06/07/23 14:48 Ondansetron 4 Mg/2 Ml Vial IVP 4 mg Q6HR PRN Administration Nausea / Vomiting Potassium Chloride 40 meq 06/07/23 12:00 06/07/23 12:09 Potassium Chloride 20 Meq/15 Ml Udc PO 06/07/23 20:01 40 meq Q8H ELIESER Administration Sodium Chloride 10 ml 06/07/23 01:00 06/07/23 09:12 Sodium Chloride Flush 0.9% 10 Ml Syringe IVP 10 ml 0100,0900,1700 ELIESER Administration - Lab Result Fish Bone Diagrams: 06/07/23 00:05 06/07/23 00:05 - Additional Planning My Orders: My Active Orders 06/07/23 12:00 Potassium Chloride Oral Soln [Potassium Chloride] 40 meq PO Q8H Subjective - Subjective Patient Reports: Other (Somnolent. Intermittently agitated. No other complaints at this time.) Objective Vital Signs: Vital Signs - 24 hr 06/06/23 06/06/23 06/07/23 19:59 23:57 00:00 Temperature 36.7 C Heart Rate 94 94 95 Heart Rate [ Apical] Heart Rate [ Brachial] Respiratory 15 16 15 Rate Blood Pressure 114/83 H 128/73 144/88 H Blood Pressure [Left Brachial artery] Blood Pressure [Right Ankle] O2 Saturation 99 97 97 06/07/23 06/07/23 06/07/23 00:14 00:30 01:00 Temperature 36.3 C L Heart Rate 92 95 Heart Rate [ 60 Apical] Heart Rate [ Brachial] Respiratory 15 15 24 Rate Blood Pressure 138/94 H 128/103 H Blood Pressure [Left Brachial artery] Blood Pressure 151/87 H [Right Ankle] O2 Saturation 99 100 100 06/07/23 06/07/23 05:51 15:57 Temperature 36.7 C 36.8 C Heart Rate Heart Rate [ 102 H Apical] Heart Rate [ 80 Brachial] Respiratory 22 16 Rate Blood Pressure Blood Pressure 138/88 H [Left Brachial artery] Blood Pressure 106/77 [Right Ankle] O2 Saturation 97 97 Oxygen O2 Source Room air I&O (Last 24 Hrs): Intake and Output Totals x24h 06/05/23 06/06/23 06/07/23 23:59 23:59 23:59 Intake Total 1115 Output Total 200 Balance 915 General: Alert, Oriented x3, No acute distress Neck: Supple, No JVD, No thyromegaly Neuro: Non Focal Cardiovascular: Regular rate, Normal S1, Normal S2, Other Respiratory: Other (Good air exchange in all lung morgan no wheezing no crackles.) Abdomen: Normal bowel sounds, Soft, No tenderness Extremities: No clubbing, No cyanosis, No edema Skin: No rashes - Results Results: Laboratory Results WBC 9.8 x10^3/uL (4.8-10.8) 06/07/23 00:05 RBC 4.19 10^6/uL (4.20-5.40) L 06/07/23 00:05 Hgb 11.6 g/dL (12.0-16.0) L 06/07/23 00:05 Hct 35.1 % (37.0-47.0) L 06/07/23 00:05 MCV 83.8 fL (81.0-99.0) 06/07/23 00:05 MCH 27.7 pg (27.0-31.0) 06/07/23 00:05 MCHC 33.0 g/dL (32.0-36.0) 06/07/23 00:05 RDW 12.7 % (12.0-15.0) 06/07/23 00:05 Plt Count 335 10^3/uL (130-450) 06/07/23 00:05 MPV 8.3 fL (7.9-10.8) 06/07/23 00:05 Neut # (Auto) 6.9 10^3/uL (1.5-6.6) H 06/07/23 00:05 Lymph # (Auto) 2.0 10^3/uL (1.5-3.5) 06/07/23 00:05 Kern # (Auto) 0.6 10^3/uL (0.0-1.0) 06/07/23 00:05 Eos # (Auto) 0.0 10^3/uL (0.0-0.7) 06/07/23 00:05 Baso # (Auto) 0.0 10^3/uL (0.0-0.1) 06/07/23 00:05 Absolute Nucleated RBC 0.00 x10^3/uL 06/07/23 00:05 Nucleated RBC % 0.0 /100WBC 06/07/23 00:05 Sodium 141 mmol/L (135-145) 06/07/23 00:05 Potassium 3.0 mmol/L (3.5-4.5) L 06/07/23 00:05 Chloride 107 mmol/L (101-111) 06/07/23 00:05 Carbon Dioxide 24 mmol/L (21-32) 06/07/23 00:05 Anion Gap 10.0 (6-13) 06/07/23 00:05 BUN 6 mg/dL (6-20) 06/07/23 00:05 Creatinine 0.6 mg/dL (0.6-1.3) 06/07/23 00:05 Estimated GFR (MDRD) 112 (>89) 06/07/23 00:05 Glucose 91 mg/dL (74-104) 06/07/23 00:05 Estimat Average Glucose 91 mg/dL (70-100) 06/07/23 00:05 Hemoglobin A1c % 4.8 % (4.27-6.07) 06/07/23 00:05 Calcium 8.7 mg/dL (8.5-10.3) 06/07/23 00:05 Total Bilirubin 0.3 mg/dL (0.2-1.0) 06/07/23 00:05 AST 9 IU/L (10-42) L 06/07/23 00:05 ALT 6 IU/L (10-60) L 06/07/23 00:05 Alkaline Phosphatase 69 IU/L (42-121) 06/07/23 00:05 Total Protein 6.6 g/dL (6.4-8.9) 06/07/23 00:05 Albumin 3.5 g/dL (3.2-5.5) 06/07/23 00:05 Globulin 3.1 g/dL (2.1-4.2) 06/07/23 00:05 Albumin/Globulin Ratio 1.1 (1.0-2.2) 06/07/23 00:05 Triglycerides 74 mg/dL (48-352) 06/07/23 00:05 Cholesterol 105 mg/dL (-200) 06/07/23 00:05 LDL Cholesterol, Calc 60 mg/dL (-129) 06/07/23 00:05 VLDL Cholesterol 15 mg/dL 06/07/23 00:05 HDL Cholesterol 30 mg/dL (60-) L 06/07/23 00:05 LDL/HDL Ratio 2.0 (<4.4) 06/07/23 00:05 Cholesterol/HDL Ratio 3.5 (<4.4) 06/07/23 00:05 Lipase 13 U/L (11-82) 06/07/23 00:05 Procalcitonin Immunoas 0.18 ng/mL (<0.5) 06/07/23 00:05 TSH 3.43 uIU/mL (0.34-5.60) 06/07/23 00:05 Urine Opiates Screen POSITIVE (NEGATIVE) H 06/07/23 03:20 Ur Buprenorphine Scrn NEGATIVE (NEGATIVE) 06/07/23 03:20 Ur Oxycodone Screen POSITIVE (NEGATIVE) H 06/07/23 03:20 Urine Methadone Screen NEGATIVE (NEGATIVE) 06/07/23 03:20 Ur Barbiturates Screen NEGATIVE (NEGATIVE) 06/07/23 03:20 Ur Tricyclics Screen NEGATIVE (NEGATIVE) 06/07/23 03:20 Ur Phencyclidine Scrn NEGATIVE (NEGATIVE) 06/07/23 03:20 Ur Amphetamine Screen NEGATIVE (NEGATIVE) 06/07/23 03:20 U Methamphetamines Scrn NEGATIVE (NEGATIVE) 06/07/23 03:20 U Benzodiazepines Scrn POSITIVE (NEGATIVE) H 06/07/23 03:20 Urine Cocaine Screen NEGATIVE (NEGATIVE) 06/07/23 03:20 U Cannabinoids Screen NEGATIVE (NEGATIVE) 06/07/23 03:20 Ur Drug Screen Comment CUTOFF CONC BELOW: 06/07/23 03:20 Ethyl Alcohol < 10.0 mg/dL 06/07/23 00:05 HIV 1&2 Antibody Rapid NEGATIVE (NEGATIVE) 06/07/23 00:05 - Procedures Procedures: Procedures DRAINAGE OF L UP ARM SUBCU/FASCIA, OPEN APPROACH (06/05/23)
[2023-06-08] MEDS: oxyCODONE 5 MG TABLET PO PRN (02:16)
[2023-06-08] MEDS: PROCHLORPERAZINE 10 MG/2 ML VIAL IVP PRN (02:21)
[2023-06-08] MEDS: LORazepam 2 MG/ML VIAL IVP PRN (02:53)
[2023-06-08] MEDS: VANCOMYCIN INJ 1 GM in SODIUM CHLORIDE 0.9% 250 ML IV SCH (05:39)
[2023-06-08] MEDS: SODIUM CHLORIDE FLUSH 0.9% 10 ML SYRINGE IVP PRN (05:41)
[2023-06-08] MEDS: MULTIVITAMIN TABLET PO SCH (10:25)
[2023-06-08] MEDS: NICOTINE 21 MG PATCH TOP SCH (10:25)
--- NOTE | 2023-06-08 14:59 | Discharge Plan ---
Discharge Plan Problem Reviewed?: Yes Disposition: 01 Home, Self Care Condition: Good Prescriptions: Doxycycline [Vibramycin] 100 mg PO BID 7 Days #14 tablet Diet: Regular Activity Restrictions: No Restrictions Shower Restrictions: Yes (Keep dressing dry as possible unless changing it out. ) Driving Restrictions: No Weight Bearing: Full Weight Instruction Topics: ED Abscess IandD Health Concerns: Gill Lazcano is a 38-year-old woman admitted on June 05, 2023 with a chief complaint of left shoulder pain. Patient was evaluated in the emergency room and found to have an abscess of the left deltoid. Abscess is secondary to skin popping. Patient reports she uses fentanyl. She d enies using methamphetamine. However, urine tox screen performed on June 05 2423 was positive for amphetamine and negative for opiates. Her talk screen on June 07, 2023 was positive for opiates, oxycodone and benzodiazepines, however, the above medications were given to her in the hospital. The abscess was incised and drained in the emergency room. The patient was admitted to the medical floor for short period of time and then she left AGAINST MEDICAL ADVICE. She returned on June 06, 2023 and was admitted as an observation patient. Treatment was initiated upon admission with ceftriaxone and vancomycin given intravenously. General surgery was consulted on June 06, [address] Ward's recommendation that her dressing be changed on a daily basis. Plan of Treatment: 1. Take all medications as prescribed. 2. Patient was instructed to follow-up in the [facility] walk-in clinic on a daily basis for dressing change. The address of the clinic is [address] [place] [address] and the telephone number is [phone]. 3. Do not use any opiates or methamphetamine/amphetamines. 4. Recommend seeking assistance in a opiate outpatient treatment clinic. Patient was given several clinics that she can call upon discharge. 5. Recommend establishing care with a primary care provider. Care Goals: 1. Return to baseline function and complete healing of deltoid abscess. Assessment: Gill Lazcano is a 38-year-old admitted with a left deltoid abscess. She was treated with intravenous antibiotics and currently has no leukocytosis. Her wound is clean and has been packed with gauze. She is stable for discharge. No Smoking: If you smoke, Please STOP! Call for help.
--- NOTE | 2023-06-08 15:00 | DISCHARGE SUMMARY ---
"Discharge Summary Admit Date: 06/06/23 Discharge Date: 06/08/23 Discharging Provider: Emory Davila MD Primary Care Provider: No primary care provider. Code Status: Attempt Resuscitation Condition at Discharge: Good Discharge Disposition: 01 Home, Self Care Discharge Facility Name: [facility] - DIAGNOSES Admission Diagnoses: (1) Cellulitis and abscess of upper extremity Discharge Diagnoses with Status of Each Condition: (1) Cellulitis and abscess of upper extremity (2)Methamphetamine dependence - HPI History of Present Illness: Gill Lazcano is a 38-year-old woman admitted on June 05, 2023 with a chief complaint of left shoulder pain. Patient was evaluated in the emergency room and found to have an abscess of the left deltoid. Abscess is secondary to skin popping. Patient reports she uses fentanyl. She denies using methamphetamine. However, urine tox screen performed on June 05 2423 was positive for amphetamine and negative for opiates. Her talk screen on June 07, 2023 was positive for opiates, oxycodone and benzodiazepines, however, the above medications were given to her in the hospital. The abscess was incised and drained in the emergency room. The patient was admitted to the medical floor for short period of time and then she left AGAINST MEDICAL ADVICE. She returned on June 06, 2023 and was admitted as an observation patient. Treatment was initiated upon admission with ceftriaxone and vancomycin given intravenously. General surgery was consulted on June 06, [address] Ward's recommendation that her dressing be changed on a daily basis. - CONSULTS | PROCEDURES Consultations: 06/06/2023 General Surgery (Dr. Mat Ward) - HOSPITAL COURSE Hospital Course: See History of Present Illness. - ALLERGIES Allergies/Adverse Reactions: Allergies Allergy/AdvReac Type Severity Reaction Status Date / Time Sulfa (Sulfonamide Allergy Rash Verified 06/06/23 20:05 Antibiotics) - MEDICATIONS Home Medications: Ambulatory Orders Medication Instructions Recorded Confirmed Doxycycline [Vibramycin] 100 mg PO BID #14 tablet 06/08/23 - PHYSICAL EXAM AT DISCHARGE General Appearance: positive: No acute distress, Alert Eyes Bilateral: positive: PERRL, EOMI, Conjunctivae nml Neck: positive: Nml inspection, No JVD, Trachea midline Respiratory: positive: Chest non-tender, No respiratory distress, Breath sounds nml Cardiovascular: positive: Regular rate & rhythm, No murmur, No gallop Abdomen: positive: Non-tender, No organomegaly, Nml bowel sounds Skin: positive: No rash Extremities: positive: Other (Left Deltoid wound clean. No evidendce of purulent drainage) Neurologic/Psychiatric: positive: Oriented x3, Motor nml - LABS Result Diagrams: 06/08/23 15:50 06/08/23 15:50 - QUALITY (Female Hip Fx Only) Was patient sent home on osteoporosis medication?: No (n/a) - FOLLOW UP Follow Up: Please follow-up with the [facility] walk-in clinic in [place]. The address of the clinic is [address] [place] [address] and the teleph one number is [phone]. Please obtain a primary care provider. - TIME SPENT Time Spent in Discharge (Minutes): 38"
[2023-06-08 16:01] LABS: BASOPHILS # (AUTO) 0.1 10^3/uL (0.0-0.1); BASOPHILS % (AUTO) 0.5 %; EOSINOPHILS % (AUTO) 0.4 %; HCT - HEMATOCRIT 38.3 % (37.0-47.0); HGB - HEMOGLOBIN 12.7 g/dL (12.0-16.0); LYMPHOCYTES # (AUTO) 2.3 10^3/uL (1.5-3.5); LYMPHOCYTES % (AUTO) 21.9 %; MEAN CORPUSCULAR HEMOGLOBIN 27.9 pg (27.0-31.0); MEAN CORPUSCULAR HGB CONC 33.2 g/dL (32.0-36.0); MEAN CORPUSCULAR VOLUME 84.2 fL (81.0-99.0); MEAN PLATELET VOLUME 8.7 fL (7.9-10.8); MONOCYTES # (AUTO) 0.6 10^3/uL (0.0-1.0); MONOCYTES % (AUTO) 5.9 %; NEUTROPHILS # (AUTO) 7.1 10^3/uL (1.5-6.6); NEUTROPHILS % (AUTO) 68.6 %; PLT - PLATELET COUNT 304 10^3/uL (130-450); RED BLOOD COUNT 4.55 10^6/uL (4.20-5.40); RED CELL DISTRIBUTION WIDTH 12.6 % (12.0-15.0); WHITE BLOOD COUNT 10.4 x10^3/uL (4.8-10.8)
[2023-06-08 16:02] VITALS: BP 120/84; O2SAT 99
[2023-06-08 16:16] LABS: CALCIUM 9.1 mg/dL (8.5-10.3); CREATININE 0.7 mg/dL (0.6-1.3); POTASSIUM 3.5 mmol/L (3.5-4.5)
[2023-06-11 09:08] LABS: HBsAG SCREEN Negative (Negative); HCV AB Reactive (Non Reactive); HCV IU/ML HCV Not Detected IU/mL (.); HEPATITIS B CORE IGM AB Negative (Negative)
== END 2023-06-08 17:00 | disposition home or self-care (01) ==
LOC: EDUNIT# → ED 19:53 → MS2 21:22
PROVIDERS: ADMIT Internal Medicine; ATTEND Internal Medicine
DX: L03.114 Cellulitis of left upper limb (principal); L02.414 Cutaneous abscess of left upper limb; F41.9 Anxiety disorder, unspecified; F15.23 Other stimulant dependence with withdrawal; F32.A Depression, unspecified
CPT/HCPCS: 36415; 80048; 80053; 80061; 80074; 80306; 82077; 83036; 83690; 84145; 84443; 85025; 86703; 87522; 96365; 96366; 96367; 96372; 96375; 96376; 99284; 99285; A9270; G0378; J2060; J3370; 80050; 83721; 84132

== ENCOUNTER 2023-06-20 13:38 | Outpatient (CLI) | payer MEDICAID | END 2023-06-20 23:59 | disposition critical access hospital (66) | LOC: EMS 13:38 | DX: M25.511 Pain in right shoulder (principal); R50.9 Fever, unspecified | CPT/HCPCS: A0425; A0429; A0999 ==

== ENCOUNTER 2023-06-20 13:59 | Observation (INO) | payer MEDICAID ==
[2023-06-20] MEDS: HYDROmorphone 0.5 MG/0.5 ML SYRINGE IM STA ×3 (15:09→20:26)
[2023-06-20] MEDS ORDERED: iohexoL-300 100 ML VIAL ONE (15:27)
[2023-06-20] MEDS: LORazepam 2 MG/ML VIAL IM STA (17:00)
[2023-06-20] MEDS: HYDROmorphone 0.5 MG/0.5 ML SYRINGE IVP STA (18:52)
[2023-06-20 19:55] LABS: BASOPHILS # (AUTO) 0.1 10^3/uL (0.0-0.1); BASOPHILS % (AUTO) 0.5 %; EOSINOPHILS # (AUTO) 0.1 10^3/uL (0.0-0.7); EOSINOPHILS % (AUTO) 0.5 %; HCT - HEMATOCRIT 33.8 % (37.0-47.0); LYMPHOCYTES # (AUTO) 1.7 10^3/uL (1.5-3.5); LYMPHOCYTES % (AUTO) 11.3 %; MEAN CORPUSCULAR HEMOGLOBIN 27.8 pg (27.0-31.0); MEAN CORPUSCULAR HGB CONC 32.5 g/dL (32.0-36.0); MEAN CORPUSCULAR VOLUME 85.4 fL (81.0-99.0); MEAN PLATELET VOLUME 8.3 fL (7.9-10.8); MONOCYTES % (AUTO) 6.8 %; NEUTROPHILS # (AUTO) 11.8 10^3/uL (1.5-6.6); NEUTROPHILS % (AUTO) 80.1 %; PLT - PLATELET COUNT 305 10^3/uL (130-450); RED BLOOD COUNT 3.96 10^6/uL (4.20-5.40); RED CELL DISTRIBUTION WIDTH 12.7 % (12.0-15.0); WHITE BLOOD COUNT 14.8 x10^3/uL (4.8-10.8)
[2023-06-20 20:09] LABS: ALBUMIN 2.9 g/dL (3.2-5.5); ALBUMIN/GLOBULIN RATIO 0.9 (1.0-2.2); ALKALINE PHOSPHATASE 68 IU/L (42-121); ALT ALANINE AMINOTRANSFERASE 8 IU/L (10-60); AST ASPARTATE AMINOTRANSFERASE 14 IU/L (10-42); BILIRUBIN,TOTAL 0.3 mg/dL (0.2-1.0); BUN - BLOOD UREA NITROGEN 7 mg/dL (6-20); CALCIUM 8.3 mg/dL (8.5-10.3); CARBON DIOXIDE - CO2 28 mmol/L (21-32); CHLORIDE 97 mmol/L (101-111); CREATININE 0.5 mg/dL (0.6-1.3); GFR - MDRD 138 (>89); GLUCOSE 97 mg/dL (74-104); LIPASE < 10 U/L (11-82); MAGNESIUM 1.7 mg/dL (1.7-2.3); POTASSIUM 3.1 mmol/L (3.5-4.5); SODIUM 132 mmol/L (135-145); TOTAL PROTEIN 6.2 g/dL (6.4-8.9)
--- NOTE | 2023-06-20 20:25 | ED Physician Documentation ---
History of Present Illness - Stated complaint Stated Complaint: ARM INFECTION - Chief complaint Chief Complaint: General - Additonal information Additional information: 38-year-old female presents emergency department for right arm inflammation to the deltoid region. Patient was recently hospitalized here for left upper extremity abscess and infection. It was incised and drained with a large amount of purulent drainage she ended up leaving AGAINST MEDICAL ADVICE wants checked back in and completed full course of IV antibiotics. Left deltoid incision is open it does not appear to be cellulitic there is no purulent drainage but right upper extremity is very very swollen. Patient is ill-appearing she does endorse an IV drug use she is not forthcoming when her last use was but she does use meth. Poor historian hard to tell if she is been having fevers or chills at home she is febrile and tachycardic. PD PAST MEDICAL HISTORY - Past Medical History Past Medical History: Yes Cardiovascular: None Respiratory: None Neuro: None Endocrine/Autoimmune: None GI: None COMPUTER LAB ASSISTANT: None : Incontinence HEENT: None Psych: Depression, Anxiety Musculoskeletal: None Derm: Other - Past Surgical History Past Surgical History: Yes General: Cholecystectomy, Appendectomy /COMPUTER LAB ASSISTANT: Tubal ligation HEENT: Tonsil/Adenoidectomy - Present Medications Home Medications: Ambulatory Orders Medication Instructions Recorded Confirmed No Known Home Medications 06/20/23 06/20/23 - Allergies Allergies/Adverse Reactions: Allergies Allergy/AdvReac Type Severity Reaction Status Date / Time Sulfa (Sulfonamide Allergy Rash Verified 06/20/23 14:13 Antibiotics) - Social History Does the pt smoke?: Yes Smoking Status: Current every day smoker Does the pt drink ETOH?: No Does the pt have substance abuse?: Yes - Immunizations Immunizations are current?: Yes - POLST Patient has POLST: No PD ED PE NORMAL - Vitals Vital signs reviewed: Yes - General General: Alert and oriented X 3, Well developed/nourished, Other (ill appearing) - HEENT HEENT: Atraumatic - Psych Psych: Other (flat, gaurded affect, at times and be aggressive) - Free text exam Free text exam: RUE: Severe right upper extremity swelling and erythema. Pain with any flexion or extension of the right shoulder. erythema from top of shoulder to elbow swelling is most notable at the deltoid. Results - Vitals Vitals: Vital Signs - 24 hr 06/20/23 06/20/23 06/20/23 14:13 16:23 18:00 Temperature 38 C H Heart Rate 113 H 91 88 Respiratory 20 16 16 Rate Blood Pressure 123/74 158/76 H 96/69 O2 Saturation 97 97 95 06/20/23 06/20/23 06/20/23 20:00 22:00 22:24 Temperature 36.8 C Heart Rate 88 86 Respiratory 18 12 Rate Blood Pressure 100/54 L 105/64 O2 Saturation 97 96 Oxygen O2 Source Room air - EKG (time done) 9 EKG releavant findings:: EKG personally interpreted by author of this note. Relevant findings are: Rate: Rate (enter#) (86) Rhythm: NSR [place]: Normal Intervals: Normal [place] QRS: Normal Ischemia: Normal ST segments Computer interpretation: Agree with computer - Labs Labs: Laboratory Tests 06/20/23 06/20/23 06/20/23 19:38 19:38 19:38 WBC 14.8 H RBC 3.96 L Hgb 11.0 L Hct 33.8 L MCV 85.4 MCH 27.8 MCHC 32.5 RDW 12.7 Plt Count 305 MPV 8.3 Neut # (Auto) 11.8 H Lymph # (Auto) 1.7 [place] # (Auto) 1.0 Eos # (Auto) 0.1 Baso # (Auto) 0.1 Absolute Nucleated RBC 0.00 Nucleated RBC % 0.0 Sodium 132 L Potassium 3.1 L Chloride 97 L Carbon Dioxide 28 Anion Gap 7.0 BUN 7 Creatinine 0.5 L Estimated GFR (MDRD) 138 Glucose 97 Calcium 8.3 L Magnesium 1.7 1.7 Total Bilirubin 0.3 AST 14 ALT 8 L Alkaline Phosphatase 68 Total Protein 6.2 L Albumin 2.9 L Globulin 3.3 Albumin/Globulin Ratio 0.9 L Lipase < 10 L - Rads (name of study) CT right upper extremity with Relevant Findings:: Final report received, EMP independent interpretation of test, Other (Large right deltoid intramuscular abscess 9.5 x 13.1cm ) PD Medical Decision Making - ED course ED course: 38-year-old ill-appearing female presents emergency department for right upper extremity swelling and pain. Labs are complete patient is very ill-appearing she does have a white count of 14.8 hemoglobin 11.0 hematocrit 33.8 neutrophils 11.8. Slightly hyponatremic sodium 132, hypokalemic potassium 3.1 normal magnesium. Patient is a very hard stick multiple times were made for ultrasound-guided IV without success. We then transitioned to placement of a central line. GRADUATE NURSE with anesthesia was kind enough to come down and have assist with this this also took multiple times as well and he ended up needing to call his colleagues urinate to come in house for central line placement. After multiple hours and multiple different attempts central line was placed and x-ray was used to confirm placement. CT with contrast for right upper extremity was then complete and patient appears to have a very large intramuscular deltoid abscess measuring at least 9.5 x 7.2 x 13.1 cm in maximum dimensions. When patient first arrived she did have a Band-Aid on her deltoid she is unable to provide any history of she had any recent immunizations or shots and that left deltoid. She was given IV Dilaudid for her pain her pain is significantly more controlled she is resting comfortably. I called on-call surgeon Dr. Herr I believe that patient will need a surgical washout of that right deltoid given that this abscess is intramuscular I do not feel comfortable doing that bedside here in the emergency department Dr. Herr believes that patient needs to be sent to the ICU because patient has central line and unfortunately we do not have an ICU bed available. She just suggested starting patient on Zosyn and vancomycin given that patient is for now clinically stable tachycardia has resolved and she has no hypotension we will start her on IV antibiotics and Dr. Herr will come in first thing tomorrow morning around 7 AM to do a surgical washout of that right deltoid and then transfer her to ICU when there is a bed available tomorrow morning. Patient is aware of the plan and is agreeable to stay overnight for surgery first thing tomorrow morning. Due to change of shift to have given report to Dr. Quigley who will be further managing patient's care overnight while patient is boarding. Departure - Departure Disposition: ED Place in Observation Forms: PCP List
--- NOTE | 2023-06-20 20:33 | ANESTHESIA PROCEDURE NOTE ---
Anesth Central Line Template - Central Line Central Line Preparation: Consent Obtained, Time out completed, Sterile prep and drape Central line location: Right IJ Central line type: Triple lumen Central line catheter tip site resides: Superior vena cava (SVC) Central line aftercare: Chlorhexidine disc placed, Secured, Placement confirmed, No pneumothorax, No complications, Bundle checklist complete (Line was placed on second attempt; pt was agitated at times, with poor vasculature; after placement of first atttempt; cxr showed line in right subclavian; line wired by TORY Downs, and new catheter put in to 19 cm, after cxr in was pulled back to 16 cm.)
[2023-06-20] MEDS: iohexoL-300 100 ML VIAL IVP ONE (21:07)
[2023-06-20] MEDS: POTASSIUM CHLORIDE 20 MEQ TABLET PO STA (21:13)
--- NOTE | 2023-06-20 21:27 | XRAY Report ---
PROCEDURE: Chest for Line Placement INDICATIONS: line placement TECHNIQUE: One view of the chest was acquired. COMPARISON: Chest radiograph 11/02/2016 FINDINGS: Surgical changes and devices: A right internal jugular catheter is seen with tip directed laterally towards the right upper extremity and possibly within the subclavian/axillary vein. Lungs and pleura: No pleural effusions or pneumothorax. Lungs are clear. Mediastinum: Mediastinal contours appear normal. Heart size is normal. Bones and chest wall: No suspicious bony lesions. Overlying soft tissues appear unremarkable. IMPRESSION: Right internal jugular catheter is seen in inappropriate position with tip directed towards the right upper extremity. At the time of this dictation, a subsequent radiograph has been performed demonstra ting that the catheter has been repositioned. Reviewed by: Andrew Gabriel MD on 06/20/2023 9:26 PM PDT Approved by: Andrew Gabriel MD on 06/20/2023 9:26 PM PDT Station ID: [id number]
--- NOTE | 2023-06-20 21:28 | XRAY Report ---
PROCEDURE: Chest for Line Placement INDICATIONS: central line repositioned TECHNIQUE: One view of the chest was acquired. COMPARISON: Chest regressed 06/20/2023 and 11/02/2016. FINDINGS: Surgical changes and devices: Right internal jugular catheter is repositioned with tip now projectin g over the superior cavoatrial junction. Lungs and pleura: No pleural effusions or pneumothorax. Low lung volumes. Lungs are clear. Mediastinum: Mediastinal contours appear normal. Heart size is normal. Bones and chest wall: No suspicious bony lesions. Overlying soft tissues appear unremarkable. IMPRESSION: Right internal jugular catheter is seen in satisfactory position. Reviewed by: Andrew Gabriel MD on 06/20/2023 9:27 PM PDT Approved by: Andrew Gabriel MD on 06/20/2023 9:27 PM PDT Station ID: [id number]
--- NOTE | 2023-06-20 21:38 | CT Report ---
PROCEDURE: Upper Extremity RT W INDICATIONS: severe pain, infection, inflammation TECHNIQUE: After administration of intravenous contrast material, 2 mm axial sections were obtained t hrough the right upper arm, with oblique sagittal and oblique coronal reformats. For radiation dose r eduction, the following was used: automated exposure control, adjustment of mA and/or kV according t o patient size. COMPARISON: None. FINDINGS: Image quality: Diagnostic. Bones: No acute osseous fracture or dislocation. No focal cortical erosion. No suspicious intraosseou s lesion. Included ribs are intact. Soft tissues: There is a large peripherally enhancing collection of fluid and gas along the right del toid muscle measuring at least 9.5 x 7.2 x 13.1 cm in maximum dimensions, although the inferior rosa m n is not included on coronal and sagittal reformatted images. Surrounding subcutaneous edema is prese nt. No significant glenohumeral effusion. No subacromial/subdeltoid bursal effusion. Rotator cuff mus culature is normal in bulk. The articular cartilages, labrum, ligaments, and tendons are not well roderick luated with CT. Mildly enlarged axillary lymph nodes are most likely reactive. IMPRESSION: Large right deltoid intramuscular abscess. No CT evidence of septic arthritis or osteomyelitis. Reviewed by: Andrew Gabriel MD on 06/20/2023 9:37 PM PDT Approved by: Andrew Gabriel MD on 06/20/2023 9:37 PM PDT Station ID: [id number]
[2023-06-20] MEDS: CLINDAMYCIN 600 MG/50 ML 50 ML IV ONE (22:08)
[2023-06-20] MEDS: cefTRIAXone 2 GM VIAL IVP STA (22:08)
[2023-06-20] MEDS: PIPERACILLIN/TAZOBACTAM 3.375 GM in SODIUM CHLORIDE 0.9% MINIBAG 100 ML IV SCH (22:44)
[2023-06-20] MEDS: POTASSIUM CHLORIDE INJ 40 MEQ in SODIUM CHLORIDE 0.9% 500 ML IV ONE (22:55)
[2023-06-20] MEDS ORDERED: POTASSIUM CHLOR 20 MEQ/100 ML 20 MEQ/100 ML BAG IV SCH (23:00)
[2023-06-20] MEDS ORDERED: VANCOMYCIN 1 GM VIAL ONE (23:26)
[2023-06-20] MEDS: VANCOMYCIN INJ 1.25 GM in SODIUM CHLORIDE 0.9% 250 ML IV ONE (23:37)
[2023-06-20] MEDS: HYDROmorphone 1 MG/ML CARPUJECT IVP STA (23:58)
[2023-06-21] MEDS: POTASSIUM CHLOR 20 MEQ/100 ML 20 MEQ/100 ML BAG IV ONE (00:19)
[2023-06-21] MEDS: HYDROmorphone 1 MG/ML CARPUJECT IVP PRN ×2 (00:36→16:58)
--- NOTE | 2023-06-21 01:56 | ED Physician Documentation ---
ED Addendum - Addendum Addendum: 06/21/23 01:55 The patient continue with some episodic pain in the arm. She was ordered a repeat dose of hydromorphone IV and then I put in scheduled dosing of 1 mg every 2 hours if needed for pain. She been given a dose of IV antibiotics. We can repeat those at appropriate intervals. Her potassium was slightly low. A supplement had been ordered but was for a dose we do not have available. I reordered it as a 20 mill equivalent IV dose via central line that she has. The intention will be for surgical debridement of her right arm abscess which is of a considerable size on CT scan. It does seem appropriate for that to be done in a surgical for setting to allow for better sedation and pain control etc. Her blood pressure and heart rate remained stable now early overnight. I will be continue to be reassessed.
[2023-06-21] MEDS: KETOROLAC 30 MG/ML VIAL IVP STA (02:14)
[2023-06-21] MEDS: ACETAMINOPHEN 1,000 MG/100 ML 1,000 MG/100 ML BAG IV ONE (02:14)
[2023-06-21 06:32] LABS: BASOPHILS # (AUTO) 0.1 10^3/uL (0.0-0.1); BASOPHILS % (AUTO) 0.4 %; EOSINOPHILS # (AUTO) 0.1 10^3/uL (0.0-0.7); EOSINOPHILS % (AUTO) 0.6 %; HGB - HEMOGLOBIN 10.4 g/dL (12.0-16.0); LYMPHOCYTES # (AUTO) 1.3 10^3/uL (1.5-3.5); LYMPHOCYTES % (AUTO) 10.8 %; MEAN CORPUSCULAR HEMOGLOBIN 27.4 pg (27.0-31.0); MEAN CORPUSCULAR HGB CONC 32.5 g/dL (32.0-36.0); MEAN CORPUSCULAR VOLUME 84.4 fL (81.0-99.0); MEAN PLATELET VOLUME 8.3 fL (7.9-10.8); MONOCYTES % (AUTO) 7.6 %; NEUTROPHILS # (AUTO) 9.9 10^3/uL (1.5-6.6); NEUTROPHILS % (AUTO) 79.8 %; PLT - PLATELET COUNT 291 10^3/uL (130-450); RED BLOOD COUNT 3.79 10^6/uL (4.20-5.40); RED CELL DISTRIBUTION WIDTH 12.7 % (12.0-15.0); WHITE BLOOD COUNT 12.4 x10^3/uL (4.8-10.8)
[2023-06-21] MEDS ORDERED: ONDANSETRON 4 MG/2 ML VIAL IVP PRN ×2 (06:37→08:26)
--- NOTE | 2023-06-21 06:43 | SURGERY HX AND PHYSICAL(T) ---
Surgical History & Physical - Chief Complaint/HPI Chief Complaint: my arm hurts History of Present Illness: 38 y/o F with a history of IV drug use (states she only uses fentanyl and hasnt used "for a long time" but is unable to be more specific). She has pain and swelling in her right upper arm which is severe and constant in nature. She states this has been going on "for a long time" but is unable to be more specific, possibly weeks. She endorses associated fevers and chills and nausea and vomiting. She states she has not eaten in days and that she is hungry this AM. Notably, this is the patient's third presentation to this hospital in the last 15 days. She was admitted for a similar abscess on the contralateral arm which was I&D'd and the patient left against medical advice and then returned for IV antibiotics. At the time of my discussion with the patient, she denies being on any antibiotics. The patient states she is currently without housing and does not have a job. - PMH/PSH/Social Hx Does the pt have a hx of MRSA?: No Neurological History: None Eyes, Ears, Nose, Throat: None Cardiovascular: None Respiratory: None Skin: Other Endocrine/Autoimmune: None Gastrointestinal: None SPECIAL EDUCATION INCLUSION TEACHER: None Urinary: Incontinence Musculoskeletal: None Blood Disorders: Polycythemia vera Psychiatric: Depression, Anxiety General: Cholecystectomy, Appendectomy Eyes Ears Nose Throat (EENT): Tonsil/Adenoidectomy Smoking Status: Current every day smoker (1/2ppd) Does the pt drink ETOH?: No Does the pt have substance abuse?: Yes Substance Use and Type: Meth, Other (fentanyl) - Family Hx Family Hx: Other (non contributory) - Home Meds and Allergies Home Medications: No Known Home Medications 06/20/23 Allergies/Adverse Reactions: Allergies Allergy/AdvReac Type Severity Reaction Status Date / Time Sulfa (Sulfonamide Allergy Rash Verified 06/20/23 14:13 Antibiotics) - Review of Systems Constitutional: Other (A complete 10 point review of symptoms is otherwise negative except for that noted in HPI and PMH.) - Vital Signs Heart Rate: 77 Blood Pressure: 93/58 Temperature: 36.8 C Respiratory Rate: 13 O2 Saturation: 99 Weight (kg): 56.699 kg Height: 1.63 m - Physical Exam General Appearance: positive: No acute distress, Lethargic, Other (poor historian. Patient lying in position at time of my exam. She is cooperative and answers questions to the best of her ability but has trouble remembering details.) Eyes Bilatera: positive: Normal inspection, PERRL, EOMI ENT: positive: No signs of dehydration Neck: positive: Trachea midline Respiratory: positive: No respiratory distress Cardiovascular: positive: Regular rate & rhythm Peripheral Pulses: positive: 2+ Abdomen: positive: Non-tender, No distention. negative: Guarding, Rebound Back: positive: Nml inspection Skin: positive: Pallor Extremities: positive: Other (R UE with large abscess over lateral deltoid, undrained, warm and ttp. L UE with 3cm open wound, clean with fibrin at base, no dressing in place) Neurologic/Psychiatric: positive: Oriented x3 - Patient Review Patient Review: Problems were reviewed with the patient during this visit. Medications were reviewed with the patient during this visit. Allergies were reviewed this patient during this visit. Pertinent Tests Reviewed: All pertitent test for this patient were reviewed. - Assessment & Plan Assessment and Plan: 38 y/o F with: 1. large right arm abscess - I personally reviewed the images and report from the CT done last night. It shows a large intramuscular abscess without joint or bony involvement. There is air in the abscess. - plan for emergent I&D this AM. I discussed the r/b/a including bleeding, damage to surrounding structures, numbness or impaired function of the arm, worsening infection, and the possible need for further surgery or procedures with the patient at bedside. She voiced understanding, her questions were answered, and she wished to proceed. A consent was signed. The patient's recent meth use does increase her risk of surgical complication. - continue broad spectrum IV antibiotics until cultures available. Blood cx drawn, wound cultures will be collected at the time of surgery. - will opt for wet to dry dressings as these will be easiest for patient to continue after discharge. 2. left arm wound - will cleanse and dress wound in OR. Similar wet to dry dressing to be used on both sides. L arm dressing can be changed daily. 3. IV drug use - patient states she uses only fentanyl, UDS pending. Prior UDS showed +meth. - monitor for signs of withdrawal and provide supportive care 4. unhoused - will order social work consult on admission
[2023-06-21] MEDS ORDERED: LIDOCAINE 1%-EPI 1:100000 20 ML MDV ONE (06:52)
[2023-06-21] MEDS ORDERED: BUPIVACAINE 0.25% PF 30 ML VIAL ONE (06:53)
[2023-06-21 06:57] LABS: MAGNESIUM 1.9 mg/dL (1.7-2.3)
[2023-06-21 07:03] LABS: CALCIUM 8.5 mg/dL (8.5-10.3); CREATININE 0.6 mg/dL (0.6-1.3); POTASSIUM 3.6 mmol/L (3.5-4.5)
--- NOTE | 2023-06-21 07:14 | ANESTHESIA ---
Pre-Anesthesia VS, & Labs - Diagnosis Left deltoid abscess - Procedure I&D left deltoid abscess Vital Signs: Temp Pulse Resp BP Pulse Ox O2 Flow Rate 36.8 C 77 13 93/58 L 99 06/21/23 06:58 06/21/23 06:58 06/21/23 06:58 06/21/23 06:58 06/21/23 06:58 Height: 5 ft 4 in Weight (kg): 56.699 kg Body Mass Index: 21.4 BMI Classification: Normal - NPO >8 hours - Is Patient ?: No (tubal ligation) - Lab Results Current Lab Results: Laboratory Tests 06/21/23 06:22: Sodium 136, Potassium 3.6, Chloride 101, Carbon Dioxide 30, Anion Gap 5.0 L, BUN 8, Creatinine 0.6, Estimated GFR (MDRD) 112, Glucose 95, Calcium 8.5, Magnesium 1.9, Total Creatine Kinase 159 06/21/23 06:22: WBC 12.4 H, RBC 3.79 L, Hgb 10.4 L, Hct 32.0 L, MCV 84.4, MCH 27.4, MCHC 32.5, RDW 12.7, Plt Count 291, MPV 8.3, Neut # (Auto) 9.9 H, Lymph # (Auto) 1.3 L, [place] # (Auto) 1.0, Eos # (Auto) 0.1, Baso # (Auto) 0.1, Absolute Nucleated RBC 0.00, Nucleated RBC % 0.0 06/20/23 19:38: Magnesium 1.7 06/20/23 19:38: Sodium 132 L, Potassium 3.1 L, Chloride 97 L, Carbon Dioxide 28, Anion Gap 7.0, BUN 7, Creatinine 0.5 L, Estimated GFR (MDRD) 138, Glucose 97, Calcium 8.3 L, Magnesium 1.7, Total Bilirubin 0.3, AST 14, ALT 8 L, Alkaline Phosphatase 68, Total Protein 6.2 L, Albumin 2.9 L, Globulin 3.3, Albumin/Globulin Ratio 0.9 L, Lipase < 10 L 06/20/23 19:38: WBC 14.8 H, RBC 3.96 L, Hgb 11.0 L, Hct 33.8 L, MCV 85.4, MCH 27.8, MCHC 32.5, RDW 12.7, Plt Count 305, MPV 8.3, Neut # (Auto) 11.8 H, Lymph # (Auto) 1.7, [place] # (Auto) 1.0, Eos # (Auto) 0.1, Baso # (Auto) 0.1, Absolute Nucleated RBC 0.00, Nucleated RBC % 0.0 Lab results reviewed: Yes Fish Bones: 06/21/23 06:22 06/21/23 06:22 Home Medications and Allergies Home Medications: Ambulatory Orders No Known Home Medications 06/20/23 Active Medications Hydromorphone HCl (Hydromorphone 1 Mg/Ml Carpuject) 1 mg IVP Q2H PRN PRN Reason: PAIN Last Admin: 06/21/23 00:36 Dose: 1 mg Piperacillin Sod/Tazobactam (Sod 3.375 gm/ Sodium Chloride) 100 mls @ 200 mls/hr IV Q6H ELIESER Last Infusion: 06/21/23 05:40 Dose: Infused Sodium Chloride (Normal Saline 0.9%) 1,000 mls @ 125 mls/hr IV .Q8H ELIESER Vancomycin HCl 1 gm/ Sodium (Chloride) 250 mls @ 167 mls/hr IV Q8H ELIESER Morphine Sulfate (Morphine 2 Mg/Ml Carpuject) 4 mg IVP Q2HR PRN PRN Reason: PAIN >8 Ondansetron HCl (Ondansetron 4 Mg/2 Ml Vial) 4 mg IVP Q6HR PRN PRN Reason: Nausea / Vomiting No Known Home Medications 06/20/23 Allergies/Adverse Reactions: Allergies Allergy/AdvReac Type Severity Reaction Status Date / Time Sulfa (Sulfonamide Allergy Rash Verified 06/20/23 14:13 Antibiotics) Anes History & Medical History - Anesthetic History Anesthesia Complications: reports: No previous complications - Medical History Cardiovascular: reports: None Pulmonary: reports: None Gastrointestinal: reports: None Urinary: reports: Incontinence Neuro: reports: None Musculoskeletal: reports: None Endocrine/Autoimmune: reports: None Blood Disorders: reports: Polycythemia vera Skin: reports: Other Smoking Status: Current every day smoker Psychosocial: reports: Depression, Anxiety, Amphetamine, Opioid History of Cancer?: No Other Past Medical History: Chronic drug abuse opioid and methamphetamine - Surgical History General: reports: Cholecystectomy, Appendectomy Eyes Ears Nose Throat (EENT): reports: Tonsil/Adenoidectomy Gynecologic: reports: Tubal ligation Exam General: No acute distress Dental: Poor dentition Mouth Openin Fingerbreadth Neck Mobility: Normal Mallampati classification: III Thyromental Distance: 4-6 cm Mental/Cognitive Status: Oriented to name, Oriented to date, Oriented to time Cognitive Status: Drug/alcohol affected (withdrawl) Plan Anesthesia Type: General Consent for Procedure(s) Verified and Reviewed: Yes Code Status: Attempt Resuscitation ASA classification: 3-Severe systemic disease Is this case an emergency?: Yes
[2023-06-21] MEDS: LIDOCAINE 1%-EPI 1:100000 20 ML MDV SUBQ ONE ×3 (07:18)
[2023-06-21] MEDS: BUPIVACAINE 0.25% PF 30 ML VIAL SUBQ ONE ×3 (07:18)
[2023-06-21] MEDS ORDERED: MIDAZOLAM 2 MG/2 ML VIAL ONE (07:25)
[2023-06-21] MEDS ORDERED: KETAMINE 200 MG/20 ML VIAL ONE (07:25)
[2023-06-21] MEDS ORDERED: fentaNYL 100 MCG/2 ML VIAL ONE (07:53)
[2023-06-21] MEDS: LACTATED RINGERS 1,000 ML IV ONE ×2 (08:09→08:45)
--- NOTE | 2023-06-21 08:24 | OPERATIVE REPORT ---
Operative Report - General Procedure Date: 06/21/23 Planned Procedure: right arm incision and drainage Pre-Op Diagnosis: right arm abscess Procedure Performed: right arm incision and drainage Post Op Diagnosis: right arm abscess to level of muscle - Procedure Note Primary Surgeon: Dr. Echo Herr Anesthesia Provider: Joana Downs CRNA Anesthesia Technique: Local, MAC Pathology: aerobic and anaerobic cultures Estimated Blood Loss (mL): 5 Indications: 38-year-old female with history of IV drug use. She states that her arm has been hurting "for a long time". She was noted to have an extensive abscess over the right deltoid in the emergency department. For incision and drainage of this abscess, she was taken to the operating room. Prior to surgery, I discussed the risks, benefits, and alternatives including bleeding, worsening infection, and damage to surrounding structures, as well as the possible need for further surgery or procedure with the patient. She voiced understanding, her questions were answered, and she wished to proceed with surgery. A consent was signed by the patient. Findings: 1. 550mL Purulent fluid recovered from wound 2. Gram stain, aerobic, and anaerobic cultures collected 3. Left upper extremity wound irrigated and dressed Complications: None - Other Other Information/Narrative: The patient was taken to the operative suite. MAC anesthesia was induced to the appropriate level of consciousness. Local anesthesia was injected in the area of greatest fluctuance overlying the abscess. Next, a 10 blade scalpel was used to incise the skin for approximately 3 cm. An excessive amount of foul- smelling, purulent material was recovered, approximately 550 mL. Aerobic and anaerobic cultures were obtained. The wound was then copiously irrigated with 2 L of warm normal saline. A wet-to-dry dressing of Kerlix was placed within the wound bed to encourage hemostasis and gently debride any remaining infection. The patient also had an open wound on her left upper extremity. This wound was irrigated with warm normal saline and a dressing was placed. The patient tolerated the procedure well. There were no complications.
[2023-06-21] MEDS ORDERED: NALOXONE 0.4 MG/ML VIAL IVP PRN (08:26)
[2023-06-21] MEDS ORDERED: METOCLOPRAMIDE 10 MG/2 ML VIAL IVP PRN (08:26)
[2023-06-21] MEDS ORDERED: MORPHINE 2 MG/ML CARPUJECT IVP PRN (08:26)
[2023-06-21] MEDS ORDERED: ATROPINE ABBOJECT 1 MG/10 ML SYRINGE IVP PRN (08:26)
[2023-06-21] MEDS ORDERED: HYDROmorphone 0.5 MG/0.5 ML SYRINGE IVP PRN (08:26)
[2023-06-21] MEDS ORDERED: ePHEDrine 50 MG/ML VIAL IVP PRN (08:26)
[2023-06-21] MEDS ORDERED: fentaNYL 100 MCG/2 ML VIAL IVP PRN (08:26)
[2023-06-21] MEDS: VANCOMYCIN INJ 1 GM in SODIUM CHLORIDE 0.9% 250 ML IV SCH (08:57)
[2023-06-21] MEDS ORDERED: LACTATED RINGERS 1,000 ML IV SCH (09:00)
[2023-06-21] MEDS: SODIUM CHLORIDE 0.9% 1,000 ML IV SCH (09:24)
--- NOTE | 2023-06-21 09:41 | PHARMACY PROGRESS NOTE ---
- Best Possible Medication History Admit Date and Time: Processed by: Nursing Medications reviewed in ED?: Yes Medication History completed: Yes Patient Interview: Completed As the person ultimately responsible for medication therapy, providers are able to order a medication from an existing home medication list in [facility] via the "Reconcile Routine" prior to Confirmation of that medication by support group manager. Such practice is discouraged except when the physician, in their clinical judgment, deems that a medical need exists for a medication without regard to previous use.
[2023-06-21] MEDS: SODIUM CHLORIDE 0.9% 500 ML IV ONE (10:35)
[2023-06-21] MEDS ORDERED: SODIUM CHLORIDE 0.9% MINIBAG 100 ML IV ONE (11:04)
--- NOTE | 2023-06-21 11:27 | PHARMACY PROGRESS NOTE ---
- Therapy Status Vancomycin regimen day #: 2 Therapy status: Awaiting steady state Basis for treatment: Empirical Treatment indication: R ARM ABSCESS Trough goal: 10-15 Concurrent antibiotics: ZOSYN - DEZ Risk Risk level for Acute Kidney Injury: High Acute Kidney Injury risk factors: Other nephrotoxic agents, Piperacillin/Tozobactam - Monitoring and Recommendation Clinical response to treatment: I&O Previous 24 hours 06/19/23 06/20/23 06/21/23 23:59 23:59 23:59 Intake Total 150 1050 Balance 150 1050 Lab Results 06/21/23 06/20/23 06:22 19:38 BUN 8 7 Creatinine 0.6 0.5 L Estimated GFR (MDRD) 112 138 Areas for additional monitoring: IV to PO when appropriate, Therapy de- escalation based on culture results, Acute Kidney Injury Pharmacy recommendation: Continue current regime
[2023-06-21] MEDS: MORPHINE 2 MG/ML CARPUJECT IVP PRN (12:34)
[2023-06-21] MEDS: IBUPROFEN 400 MG TABLET PO PRN (13:29)
[2023-06-21] MEDS: ACETAMINOPHEN 500 MG TABLET PO PRN (13:29)
[2023-06-21] MEDS: HYDROmorphone 0.5 MG/0.5 ML SYRINGE IVP PRN (19:48)
[2023-06-21 22:58] LABS: AMPHETAMINE SCREEN,URINE NEGATIVE (NEGATIVE); BARBITURATE SCREEN,UR NEGATIVE (NEGATIVE); BENZODIAZEPINES SCREEN, URINE POSITIVE (NEGATIVE); BUPRENORPHINE SCREEN, URINE NEGATIVE (NEGATIVE); COCAINE SCREEN URINE NEGATIVE (NEGATIVE); METHADONE SCREEN, URINE NEGATIVE (NEGATIVE); METHAMPHETAMINES SCREEN, URINE NEGATIVE (NEGATIVE); OPIATE SCREEN, URINE POSITIVE (NEGATIVE); OXYCODONE SCREEN, URINE NEGATIVE (NEGATIVE); THC CANNABINOID SCREEN, URINE NEGATIVE (NEGATIVE); TRICYCLIC ANTIDEPRESSANT,URINE NEGATIVE (NEGATIVE)
[2023-06-22] MEDS: ENOXAPARIN 40 MG/0.4 ML SYRINGE SUBQ SCH (08:32)
--- NOTE | 2023-06-22 16:32 | PROVIDER PROGRESS NOTE ---
Subjective - Subjective Pt reports feeling: Improved (awake, alert, comfortable. does not want dressing changed at this time) Objective - Vital Signs/Intake & Output Vital Signs: Vital Signs x48h Temp Pulse Pulse Resp BP BP Pulse Ox 06/22/23 16:23 36.6 C 56 L 14 83/55 L 98 06/22/23 14:00 36.7 C 67 18 96/55 L 97 06/22/23 12:11 36.7 C 67 16 96/55 L 97 06/22/23 10:00 36.8 C 71 18 107/54 L 97 Intake & Output: Intake & Output 06/19/23 06/20/23 06/21/23 06/22/23 23:59 23:59 23:59 23:59 Intake Total 150 2600.000 1120 Output Total 1050 Balance 150 7790.133 9714 - Objective General Appearance: positive: No acute distress, Alert Respiratory: positive: No respiratory distress Extremities: positive: Other (bilateral upper extremity dressings scant drainage on the right. no surrounding cellulitis) - Lab Results Fish Bones: 06/21/23 06:22 06/21/23 06:22 Other Labs: Lab Results x24hrs 06/21/23 Range/Units 22:40 Urine Opiates Screen POSITIVE H (NEGATIVE) Ur Buprenorphine Scrn NEGATIVE (NEGATIVE) Ur Oxycodone Screen NEGATIVE (NEGATIVE) Urine Methadone Screen NEGATIVE (NEGATIVE) Ur Barbiturates Screen NEGATIVE (NEGATIVE) Ur Tricyclics Screen NEGATIVE (NEGATIVE) Ur Phencyclidine Scrn NEGATIVE (NEGATIVE) Ur Amphetamine Screen NEGATIVE (NEGATIVE) U Methamphetamines Scrn NEGATIVE (NEGATIVE) U Benzodiazepines Scrn POSITIVE H (NEGATIVE) Urine Cocaine Screen NEGATIVE (NEGATIVE) U Cannabinoids Screen NEGATIVE (NEGATIVE) Ur Drug Screen Comment CUTOFF CONC BELOW: Assessment/Plan - Problem List (1) Cellulitis and abscess of upper extremity Impression: improved. does not want dressing changed at this time no surrounding cellulitis
[2023-06-23 08:43] LABS: CALCIUM 8.2 mg/dL (8.5-10.3); CREATININE 1.1 mg/dL (0.6-1.3); POTASSIUM 3.7 mmol/L (3.5-4.5)
[2023-06-23 08:48] LABS: HGB - HEMOGLOBIN 9.1 g/dL (12.0-16.0); MEAN CORPUSCULAR HEMOGLOBIN 27.5 pg (27.0-31.0); MEAN CORPUSCULAR HGB CONC 31.4 g/dL (32.0-36.0); MEAN CORPUSCULAR VOLUME 87.6 fL (81.0-99.0); MEAN PLATELET VOLUME 8.5 fL (7.9-10.8); RED BLOOD COUNT 3.31 10^6/uL (4.20-5.40); RED CELL DISTRIBUTION WIDTH 12.9 % (12.0-15.0); WHITE BLOOD COUNT 6.5 x10^3/uL (4.8-10.8)
[2023-06-23] MEDS: MULTIVITAMIN W/MINERALS TABLET PO SCH (12:51)
[2023-06-23] MEDS: DOCUSATE SODIUM 250 MG CAPSULE PO SCH (12:51)
[2023-06-23] MEDS: polyethylene glycoL 3350 17 GM PACKET PO SCH (12:51)
--- NOTE | 2023-06-23 14:34 | Discharge Plan ---
Discharge Plan Problem Reviewed?: Yes Disposition: Home, Self Care Prescriptions: Amox/Clav 875/125 [Augmentin 875/125 Tab] 1 tablet PO Q12H 5 Days #10 tablet traMADol [Ultram] 50 mg PO Q6H PRN #20 tablet PRN Reason: Pain Diet: Regular Activity Restrictions: No Restrictions Shower Restrictions: No Health Concerns: drug use and abscesses Plan of Treatment: dressing care and oral antibiotics following drainage with surgery 06/23/2023 Assessment: improved after surgery Additional Instructions or Follow Up instructions: follow up surgery office as needed [phone] No Smoking: If you smoke, Please STOP! Call for help.
--- NOTE | 2023-06-23 15:17 | DISCHARGE SUMMARY ---
"Discharge Summary Admit Date: 06/21/23 Discharge Date: 06/23/23 Discharging Provider: rosita arredondo Code Status: Attempt Resuscitation Condition at Discharge: Good Discharge Disposition: 01 Home, Self Care Discharge Facility Name: [facility] - DIAGNOSES Admission Diagnoses: right upper arm abscess Discharge Diagnoses with Status of Each Condition: much improved after I and D and iv abxs - HPI History of Present Illness: presented with large right upper arm abscess and underwent I and D in the operating room 06/21/2023 - CONSULTS | PROCEDURES Procedures: as above - ALLERGIES Allergies/Adverse Reactions: Allergies Allergy/AdvReac Type Severity Reaction Status Date / Time Sulfa (Sulfonamide Allergy Rash Verified 06/20/23 14:13 Antibiotics) - MEDICATIONS Home Medications: Ambulatory Orders Medication Instructions Recorded Confirmed Amox/Clav 875/125 [Augmentin 1 tablet PO Q12H 5 Days #10 tablet 06/23/23 875/125 Tab] traMADol [Ultram] 50 mg PO Q6H PRN #20 tablet 06/23/23 - PHYSICAL EXAM AT DISCHARGE General Appearance: positive: No acute distress, Alert Eyes Bilateral: positive: PERRL, EOMI, No scleral icterus ENT: positive: No signs of dehydration Respiratory: positive: No respiratory distress Skin: positive: Other (right upper arm I and D. wide open, clean, no cellulitis or necrotic tissue) Neurologic/Psychiatric: positive: Oriented x3 - LABS Result Diagrams: 06/23/23 08:09 06/23/23 08:09 - FOLLOW UP Follow Up: follow up in the surgery office as needed [phone]"
[2023-06-23 17:10] VITALS: BP 115/67; O2SAT 95
== END 2023-06-23 17:30 | disposition home or self-care (01) ==
LOC: EDUNIT# → ED 13:59 → SDS 06-21 06:47 → MS2 06-21 08:46 → SDS 06-22 12:15 → MS2 06-22 12:16
PROVIDERS: ADMIT Surgery; ATTEND Surgery
DX: M60.000 Infective myositis, unspecified right arm (principal); E87.1 Hypo-osmolality and hyponatremia; E87.6 Hypokalemia; S41.102A Unspecified open wound of left upper arm, initial encounter; X58.XXXA Exposure to other specified factors, initial encounter; F17.200 Nicotine dependence, unspecified, uncomplicated; Z59.00 Homelessness unspecified; Z88.2 Allergy status to sulfonamides
CPT/HCPCS: 23930; 36415; 36558; 73201; 80048; 80053; 80306; 82550; 83690; 83735; 85025; 85027; 87040; 87070; 87076; 87186; 87205; 96365; 96366; 96367; 96368; 96372; 96375; 99285; A9270; J0131; J1170; J1650; J2060; J3370; J3490; J7120; Q9967; 93005

== ENCOUNTER 2023-11-29 18:25 | Outpatient (CLI) | payer MEDICAID | END 2023-11-29 18:26 | disposition critical access hospital (66) | LOC: EMS 18:25 | DX: R44.0 Auditory hallucinations (principal); R44.1 Visual hallucinations; R45.1 Restlessness and agitation; F15.90 Other stimulant use, unspecified, uncomplicated; Z78.1 Physical restraint status | CPT/HCPCS: A0425; A0429; A0999 ==

== ENCOUNTER 2023-11-29 18:48 | Emergency (ER) | payer MEDICAID ==
--- NOTE | 2023-11-29 18:57 | ED Physician Documentation ---
PD HPI MHE - Stated complaint Stated Complaint: PSYCHOSIS - History obtained from History obtained from: Patient - Additional information Additional information: 38-year-old female presents via EMS for psychosis. Patient has a history of me thamphetamine use and according to EMS, the patient's boyfriend called medics due to concern that she may have overdosed on methamphetamine because she was agitated and acting psychotic. EMS found the patient under apparent influence of methamphetamine but calm and generally cooperative. She cannot tell me why she is here, or where she is at. She is tearful, hypervigilant, looking around. She periodically yells out that she "needs a nurse." But otherwise has been calm. Review of Systems Unable to obtain: Confused PD PAST MEDICAL HISTORY - Past Medical History Past Medical History: Yes Cardiovascular: None Respiratory: None Neuro: None Endocrine/Autoimmune: None GI: None SUIT MAKER: None : Incontinence HEENT: None Psych: Depression, Anxiety Musculoskeletal: None Derm: Other - Past Surgical History Past Surgical History: Yes General: Cholecystectomy, Appendectomy /SUIT MAKER: Tubal ligation HEENT: Tonsil/Adenoidectomy - Present Medications Home Medications: Ambulatory Orders Medication Instructions Recorded Confirmed Amox/Clav 875/125 [Augmentin 1 tablet PO Q12H 5 Days #10 tablet 06/23/23 875/125 Tab] traMADol [Ultram] 50 mg PO Q6H PRN #20 tablet 06/23/23 - Allergies Allergies/Adverse Reactions: Allergies Allergy/AdvReac Type Severity Reaction Status Date / Time Sulfa (Sulfonamide Allergy Rash Verified 11/29/23 18:56 Antibiotics) - Social History Does the pt smoke?: Yes Smoking Status: Current every day smoker Does the pt drink ETOH?: No Does the pt have substance abuse?: Yes - Immunizations Immunizations are current?: Yes - POLST Patient has POLST: No PD ED PE NORMAL - Vitals Vital signs reviewed: Yes - General General: No acute distress, Other (Awake, nods to questions and tearful but is not speaking to me. She is fidgety, looking around.) - HEENT HEENT: Atraumatic, Moist mucous membranes - Cardiac Cardiac: RRR, No murmur, No gallop, No rub - Respiratory Respiratory: No respiratory distress, Clear bilaterally - Abdomen Abdomen: Normal bowel sounds, Soft, Non tender, Non distended - Derm Derm: Normal color, Warm and dry, Other ( bruises in the right upper arm, right upper arm scar) - Neuro Eye Opening: Spontaneous Motor: Obeys Commands Results - Vitals Vitals: Vital Signs - 24 hr 11/29/23 18:56 Temperature 37.1 C Heart Rate 125 H Respiratory 18 Rate Blood Pressure 145/107 H O2 Saturation 100 Oxygen O2 Source Room air - Labs Labs: Laboratory Tests 11/29/23 11/29/23 11/29/23 19:41 19:41 20:09 WBC 10.7 RBC 4.02 L Hgb 10.8 L Hct 34.2 L MCV 85.1 MCH 26.9 L MCHC 31.6 L RDW 14.5 Plt Count 400 MPV 8.2 Neut # (Auto) 9.6 H Lymph # (Auto) 0.6 L [place] # (Auto) 0.5 Eos # (Auto) 0.0 Baso # (Auto) 0.0 Absolute Nucleated RBC 0.00 Nucleated RBC % 0.0 Sodium 136 Potassium 3.4 L Chloride 101 Carbon Dioxide 26 Anion Gap 9.0 BUN 15 Creatinine 0.7 Estimated GFR (MDRD) 94 Glucose 172 H Calcium 8.9 Magnesium 1.8 Total Bilirubin 0.2 AST 14 ALT 9 L Alkaline Phosphatase 69 Total Creatine Kinase 201 Total Protein 7.5 Albumin 3.8 Globulin 3.7 Albumin/Globulin Ratio 1.0 Lipase 16 TSH 2.16 Urine Color YELLOW Urine Clarity CLEAR Urine pH 6.0 Ur Specific [place] >=1.030 H Urine Protein NEGATIVE Urine Glucose (UA) NEGATIVE Urine Ketones TRACE Urine Occult Blood TRACE-INTA Urine Nitrite NEGATIVE Urine Bilirubin NEGATIVE Urine Urobilinogen 0.2 (NORMAL) Ur Leukocyte Esterase TRACE H Urine RBC 0-5 Urine WBC 0-3 Ur Squamous Epith Cells MOD Squamous H Urine Crystals 0-2 Calcium Oxalate Urine Bacteria Few Urine Mucus Few Strands Ur Microscopic Review INDICATED Urine Culture Comments NOT INDICATED Urine HCG, Qual NEGATIVE Salicylates < 1.5 Acetaminophen 0.1 Ur Drug Screen Comment CUTOFF CONC BELOW: Ethyl Alcohol < 10.0 PD Medical Decision Making - ED course Complexity details: reviewed results, re-evaluated patient, considered differential ED course: This is a 38-year-old female who has a history of polysubstance abuse who presented Via EMS after her boyfriend was concerned that she may have overdosed on methamphetamines. The patient was reportedly acting psychotic and agitated prior to EMS arrival however since they picked her up and since she has been here she has been largely calm, though somewhat hypervigilant, looking around, and appears under the influence of methamphetamines. The patient was given 1 mg of IV Ativan and we will monitor pending labs and return to baseline. Anticipate once the methamphetamine wears off she will be ready for discharge. Departure - Departure Clinical Impression: Methamphetamine-induced psychotic disorder Condition: Good
[2023-11-29 19:04] VITALS: O2SAT 100
[2023-11-29 20:18] LABS: BASOPHILS % (AUTO) 0.2 %; EOSINOPHILS % (AUTO) 0.2 %; HCT - HEMATOCRIT 34.2 % (37.0-47.0); HGB - HEMOGLOBIN 10.8 g/dL (12.0-16.0); LYMPHOCYTES # (AUTO) 0.6 10^3/uL (1.5-3.5); LYMPHOCYTES % (AUTO) 5.3 %; MEAN CORPUSCULAR HEMOGLOBIN 26.9 pg (27.0-31.0); MEAN CORPUSCULAR HGB CONC 31.6 g/dL (32.0-36.0); MEAN CORPUSCULAR VOLUME 85.1 fL (81.0-99.0); MEAN PLATELET VOLUME 8.2 fL (7.9-10.8); MONOCYTES # (AUTO) 0.5 10^3/uL (0.0-1.0); MONOCYTES % (AUTO) 4.6 %; NEUTROPHILS # (AUTO) 9.6 10^3/uL (1.5-6.6); NEUTROPHILS % (AUTO) 89.3 %; PLT - PLATELET COUNT 400 10^3/uL (130-450); RED BLOOD COUNT 4.02 10^6/uL (4.20-5.40); RED CELL DISTRIBUTION WIDTH 14.5 % (12.0-15.0); WHITE BLOOD COUNT 10.7 x10^3/uL (4.8-10.8)
[2023-11-29 20:18] LABS: BILIRUBIN,URINE NEGATIVE (NEGATIVE); GLUCOSE, URINE (UA) NEGATIVE (NEGATIVE); KETONES,URINE (UA) TRACE mg/dL (NEGATIVE); LEUKOCYTE ESTERASE, URINE TRACE (NEGATIVE); NITRITE,URINE NEGATIVE (NEGATIVE); OCCULT BLOOD,URINE TRACE-INTA (NEGATIVE); PROTEIN,URINE NEGATIVE (NEGATIVE); UROBILINOGEN,URINE 0.2 (NORMAL) E.U./dL (NORMAL)
[2023-11-29 20:19] LABS: ACETAMINOPHEN 0.1 ug/mL; ALBUMIN 3.8 g/dL (3.2-5.5); ALKALINE PHOSPHATASE 69 IU/L (42-121); ALT ALANINE AMINOTRANSFERASE 9 IU/L (10-60); AST ASPARTATE AMINOTRANSFERASE 14 IU/L (10-42); BILIRUBIN,TOTAL 0.2 mg/dL (0.2-1.0); BUN - BLOOD UREA NITROGEN 15 mg/dL (6-20); CALCIUM 8.9 mg/dL (8.5-10.3); CARBON DIOXIDE - CO2 26 mmol/L (21-32); CHLORIDE 101 mmol/L (101-111); CK- CREATINE KINASE 201 IU/L (30-223); CREATININE 0.7 mg/dL (0.6-1.3); ETOH - ETHANOL < 10.0 mg/dL; GFR - MDRD 94 (>89); GLUCOSE 172 mg/dL (74-104); LIPASE 16 U/L (11-82); MAGNESIUM 1.8 mg/dL (1.7-2.3); POTASSIUM 3.4 mmol/L (3.5-4.5); SODIUM 136 mmol/L (135-145); TOTAL PROTEIN 7.5 g/dL (6.4-8.9)
[2023-11-29] MEDS: LORazepam 2 MG/ML VIAL IVP STA ×2 (20:19→21:09)
[2023-11-29 20:21] LABS: CLARITY,URINE CLEAR (CLEAR); HCG UR QUAL NEGATIVE
[2023-11-29 20:21] LABS: SALICYLATE < 1.5 mg/dL
[2023-11-29 20:24] LABS: BACTERIA,URINE Few /HPF (None Seen); CRYSTALS,URINE 0-2 Calcium Oxalate /LPF; MUCUS,URINE Few Strands; RBC,URINE 0-5 /HPF (0-5); SQUAMOUS EPITHELIAL CELL,UR MOD Squamous (<= Few); WBC,URINE 0-3 /HPF (0-5)
[2023-11-29 20:31] LABS: THYROID STIMULATING HORMONE 2.16 uIU/mL (0.34-5.60)
[2023-11-29 20:40] LABS: AMPHETAMINE SCREEN,URINE POSITIVE (NEGATIVE); COCAINE SCREEN URINE POSITIVE (NEGATIVE); METHAMPHETAMINES SCREEN, URINE POSITIVE (NEGATIVE); OPIATE SCREEN, URINE NEGATIVE (NEGATIVE); THC CANNABINOID SCREEN, URINE NEGATIVE (NEGATIVE)
[2023-11-29 20:41] LABS: BARBITURATE SCREEN,UR NEGATIVE (NEGATIVE); BENZODIAZEPINES SCREEN, URINE NEGATIVE (NEGATIVE); BUPRENORPHINE SCREEN, URINE NEGATIVE (NEGATIVE); METHADONE SCREEN, URINE NEGATIVE (NEGATIVE); OXYCODONE SCREEN, URINE NEGATIVE (NEGATIVE); TRICYCLIC ANTIDEPRESSANT,URINE NEGATIVE (NEGATIVE)
[2023-11-29] MEDS: OLANZapine ODT 5 MG TABLET TL ONE (21:25)
[2023-11-30 02:33] VITALS: BP 118/68
== END 2023-11-30 02:27 | disposition home or self-care (01) ==
LOC: EDUNIT# → ED 18:48
DX: F15.159 Other stimulant abuse with stimulant-induced psychotic disorder, unspecified (principal); F06.8 Other specified mental disorders due to known physiological condition; F17.200 Nicotine dependence, unspecified, uncomplicated; F32.A Depression, unspecified; F41.9 Anxiety disorder, unspecified
CPT/HCPCS: 36415; 80053; 80143; 80179; 80306; 81001; 81025; 82077; 82550; 83690; 83735; 84443; 85025; 96374; 96376; 99283; A9270; J2060; 81003; 87086

== ENCOUNTER 2023-12-17 19:25 | Inpatient (IN) | payer MEDICAID ==
--- NOTE | 2023-12-17 20:13 | ED Physician Documentation ---
History of Present Illness - Stated complaint Stated Complaint: LT ARM PX - Chief complaint Chief Complaint: Wound - Additonal information Additional information: Patient Is a 38-year-old female presenting to the emergency department with rig ht arm pain and right leg pain. Patient notes history of abscess to left arm that she has seen for in the past but today she is concerned about right arm. She feels there is something in her arm. She has not take anything for pain but does report using IV drugs shortly before coming in. She is not sure what she took possibly functional she says. Patient is a history of IV drug user with history of multiple abscesses to upper and lower extremities. Most recently back in June patient had incision and drainage of wound to left upper arm. She denies any recent fevers. She notes that she injected into her left leg shortly before coming to the emergency department. 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 OFFICER: None : Incontinence HEENT: None Psych: Depression, Anxiety Musculoskeletal: None Derm: Other - Past Surgical History Past Surgical History: Yes General: Cholecystectomy, Appendectomy /AOC DIRECTOR INTELLIGENCE OFFICER: Tubal ligation HEENT: Tonsil/Adenoidectomy - Present Medications Home Medications: Ambulatory Orders Medication Instructions Recorded Confirmed Amox/Clav 875/125 [Augmentin 1 tablet PO Q12H 5 Days #10 tablet 06/23/23 875/125 Tab] traMADol [Ultram] 50 mg PO Q6H PRN #20 tablet 06/23/23 - Allergies Allergies/Adverse Reactions: Allergies Allergy/AdvReac Type Severity Reaction Status Date / Time Sulfa (Sulfonamide Allergy Rash Verified 12/17/23 19:33 Antibiotics) - Social History Does the pt smoke?: Yes Smoking Status: Current every day smoker Does the pt drink ETOH?: No Does the pt have substance abuse?: Yes - Immunizations Immunizations are current?: Yes - POLST Patient has POLST: No PD ED PE NORMAL - Vitals Vital signs reviewed: Yes - General General: Alert and oriented X 3 - HEENT HEENT: Atraumatic - Neck Neck: Supple, no meningeal sign - Cardiac Cardiac: RRR, No murmur, No gallop, No rub - Respiratory Respiratory: No respiratory distress, Clear bilaterally - Abdomen Abdomen: Normal bowel sounds, Soft, Non tender, Non distended - Back Back: No CVA TTP - Derm Derm: Normal color, Warm and dry, No rash, Other - Neuro Neuro: Alert and oriented X 3 Eye Opening: Spontaneous Motor: Obeys Commands Verbal: Oriented GCS Score: 15 - Free text exam Free text exam: Left arm shows old dehiscence wound with no significant surrounding erythema warmth or drainage. No significant swelling appreciated or tenderness on examination. Right upper arm shows reproducible anterior shoulder induration but no significant fluctuance or warmth or discharge on examination. Right anterior thigh shows no signs of induration significant swelling or fluctuance on examination. Results - Vitals Vitals: Vital Signs - 24 hr 12/17/23 12/17/23 12/17/23 19:33 21:11 22:20 Temperature 36.8 C Heart Rate 99 95 88 Respiratory 16 18 18 Rate Blood Pressure 140/90 H 126/86 H O2 Saturation 100 100 99 Oxygen O2 Source Room air PD Medical Decision Making - ED course Complexity details: reviewed old records, reviewed results, re-evaluated patient ED course: Patient is a 38-year-old female presenting to the emergency department with right arm pain right thigh pain. Patient notes symptoms started the last few days she feels there is possibly something in her arm. She notes she has a history of IV drug use. She has been seen here in the past for history of abscesses to upper extremity most recently back in June requiring an incision and drainage. Patient does admit to using IV drugs shortly prior to arrival. There on physical exam shows no signs of fevers no tachycardia. Reproducible anterior right bicep tenderness with possible induration versus scar tissue on examination. Similar findings on right upper leg as well no significant signs of fluctuance to palpation of right shoulder or right anterior thigh. No significant erythema or warmth on examination. Diffuse markings on upper and lower extremities. Left arm does show dehiscence of old wound about 1 cm in size to left upper arm. She notes it has been stable like this for the last few months ever since the surgery. Patient is a difficult stick here in emergency department she is currently declining labs at this time. Patient given Tylenol for pain control here in the emergency department. Ultrasound performed of right upper arm and right leg. Ultrasound of right leg shows significant abscess 8 cm x 3 cm x 1 cm. Patient has hyper aquatic with abnormal shape to right upper arm containing fluid as well. Given these findings concerns for abscess secondary to IV drug use. Given patient's history and poor follow-up will have patient admitted here to the hospital. Will consult with general surgery, obtain labs and start on IV antibiotics here in the ED. 1031: Discussed case with hospitalist Dr. Maier who will plan to do surgery tonight if patient is septic but if not he is willing to wait into the morning he would like patient admitted to hospitalist given concerns for withdrawal symptoms of IV drug use and concerns for persistent IV antibiotic treatment as well as social work-up. Departure - Departure Forms: PCP List
[2023-12-17] MEDS: ACETAMINOPHEN 500 MG TABLET PO STA (21:44)
[2023-12-17] MEDS ORDERED: cefTRIAXone 2 GM in SODIUM CHLORIDE 0.9% MINIBAG 100 ML IV STA (22:19)
--- NOTE | 2023-12-17 22:47 | Ultrasound Report ---
PROCEDURE: Extremity Soft Tissue Limited INDICATIONS: right arm swelling and induration TECHNIQUE: Real-time scanning was performed of the right thigh, with image documentation. COMPARISON: None. FINDINGS: Fluid collection at the right anterior thigh in the area of clinical concern measuring 8 x 3 x 1.9 cm. The abnormality is heterogeneous hypoechoic with ill-defined borders. There is a focus o f internal vascularity suggesting an internal vessel. Collection is located a 1.6 cm deep to the skin . IMPRESSION: Right anterior thigh fluid collection measuring 8 cm. This could represent developing abscess or phle gmon. Hematoma is also on the differential diagnosis. Reviewed by: Alexandr Hendricks MD on 12/17/2023 10:46 PM PDT Approved by: Alexandr Hendricks MD on 12/17/2023 10:46 PM PDT Station ID: [id number]
--- NOTE | 2023-12-17 22:49 | Ultrasound Report ---
PROCEDURE: Extremity Soft Tissue Limited INDICATIONS: right leg swelling and pain concern for abscess TECHNIQUE: Real-time scanning was performed of the right deltoid, with image documentation. COMPARISON: None. FINDINGS: Targeted ultrasound of the right deltoid at the site of clinical concern. There is a poorl y defined hypoechoic region measuring 3.2 x 1.1 cm. The abnormality has a curvilinear appearance. The re is internal vascularity. IMPRESSION: At the right deltoid subcutaneous tissues there is a ill-defined hypoechoic region measuring 3.2 cm. This could represent phlegmon, subcutaneous edema, or hematoma. Reviewed by: Alexandr Hendricks MD on 12/17/2023 10:48 PM PDT Approved by: Alexandr Hendricks MD on 12/17/2023 10:48 PM PDT Station ID: [id number]
[2023-12-17] MEDS: DOXYCYCLINE 100 MG TABLET PO STA (23:04)
--- NOTE | 2023-12-17 23:09 | CONSULTATION NOTE ---
Surgery Consult - Consult Date Consult Date: 12/17/23 Requesting Provider: Missael - Chief Complaint Chief Complaint: Right leg and hand pain - Home Meds/Allergies Allergies/Adverse Reactions: Allergies Allergy/AdvReac Type Severity Reaction Status Date / Time Sulfa (Sulfonamide Allergy Rash Verified 12/17/23 19:33 Antibiotics) - Vital Signs Vital Signs: Last Vital Signs Temp 98.2 F 12/17/23 19:33 Pulse 88 12/17/23 22:20 Resp 18 12/17/23 22:20 BP 126/86 H 12/17/23 22:20 Pulse Ox 99 12/17/23 22:20 O2 Flow Rate - Consultation Note Consultation Note: General Surgery Consultation Note Assessment: 1) Right thigh subcutaneous hypoechoic mass 8 x 3 x 1 cm - suspect abscess or hematoma 2) Right deltoid hypoechoic mass 3.2 x 1.1 cm - suspect abscess or hematoma - The patient is not clinically septic from 1&2 at the time of my evaluation - 3) Anxiety - likely related to recent IV drug use 4) Unhoused Recommendation: 1) Obtain IV access. It may take some time until she permits us to attempt IV access 2) Admit to Medical Hospitalist Service 3) Obtain blood for CBC, CMP, blood cultures, drug screen 4) Begin IV antibiotics 5) As the patient is not septic and we have yet to achieve IV access for labs/meds, surgical intervention will be scheduled to be performed by the surgical on-call team tomorrow morning 6) Once IV access has been achieved, obtain CT of RUE and RLE to better define location, depth, and number of subcutaneous lesions. 7) I will sign out this patient tomorrow morning to the on-call surgeon (Dr. Herr) who will be the operating surgeon. <><><><><><><><><><> Reason for Consultation Suspect subcutaneous abscess of the RLE and RUE Chief Complaint Right hand pain, right leg pain MERLENE Garland is a 38 year old female who is a chronic IV drug user (fentanyl/meth). She tells me that she has had pain in the right leg for several weeks and now notices a bulge in the area of her right thigh. She also complains of pain in the right upper extremity from the palm of the hand to the flexor aspect of her right forearm. She is unaware of a fullness in the right arm. She denies fevers, chills, nausea, vomiting, headache, SOB, chest pain In June 2023 she underwent I&D of a right deltoid abscess At the time of my encounter with this patient she was refusing further attempts at IV access. Past Medical History - Polycythemia; IV drug use Past Surgical History - Cholecystectomy, appendectomy Family History - N/A Social History - Unhoused; + cig; + ETOH; + IV Meth/Fentanyl Current Medications See "Medication" section Allergies Sulfa ROS Pertinent positives See HPI All other reviewed systems negative Physical Examination Vital Signs: See "Vital Signs" section GENERAL APPEARANCE: Normal development, normal body habitus, normal grooming; PSYCHIATRIC: AAO; Cooperative in discussion but refusing attempts for IV access EYES: Pupils equal, round and reactive to light, sclera anicteric EARS, NOSE, MOUTH, THROAT: Hearing normal, Oral mucous membranes moist and without lesions; NECK: No crepitus, lymphadenopathy, or thyromegaly LUNGS: Clear to auscultation without wheezing; No use of accessory muscles to breathe CARDIOVASCULAR: Heart-NSR without murmurs; Palpable carotid arteries - no bruits; Pedal pulses palpable; Peripheral edema absent ABD: Soft, non-tender, non-distended LYMPHATIC: Neck, Axillae, Groin No palpable adenopathy EXTREMITIES: RLE - Fullness to palpation over right anterolateral thigh. No cellulitis, ecchymosis, drainage RUE - Normal ROM and sensation right hand; No palpable mass or fluid collection in the hand, forearm, elbow, or upper arm; No cellulitis SKIN: Anicteric; No rashes, lesions, Ulcerations Labs Not yet obtained Imaging US RLE/RUE - see reports All images were personally reviewed by me for this encounter. Marlo Garcia MD, FACS General Surgery Service [phone]
[2023-12-18 00:53] LABS: BASOPHILS % (AUTO) 0.3 %; EOSINOPHILS # (AUTO) 0.1 10^3/uL (0.0-0.7); EOSINOPHILS % (AUTO) 0.8 %; HCT - HEMATOCRIT 32.5 % (37.0-47.0); HGB - HEMOGLOBIN 10.2 g/dL (12.0-16.0); LYMPHOCYTES # (AUTO) 1.8 10^3/uL (1.5-3.5); LYMPHOCYTES % (AUTO) 15.3 %; MEAN CORPUSCULAR HEMOGLOBIN 26.7 pg (27.0-31.0); MEAN CORPUSCULAR HGB CONC 31.4 g/dL (32.0-36.0); MEAN CORPUSCULAR VOLUME 85.1 fL (81.0-99.0); MEAN PLATELET VOLUME 7.6 fL (7.9-10.8); MONOCYTES # (AUTO) 0.4 10^3/uL (0.0-1.0); MONOCYTES % (AUTO) 3.6 %; NEUTROPHILS # (AUTO) 9.1 10^3/uL (1.5-6.6); NEUTROPHILS % (AUTO) 79.2 %; PLT - PLATELET COUNT 361 10^3/uL (130-450); RED BLOOD COUNT 3.82 10^6/uL (4.20-5.40); RED CELL DISTRIBUTION WIDTH 14.5 % (12.0-15.0); WHITE BLOOD COUNT 11.6 x10^3/uL (4.8-10.8)
[2023-12-18] MEDS ORDERED: VANCOMYCIN INJ 3 GM in SODIUM CHLORIDE 0.9% 500 ML IV STA (00:55)
[2023-12-18 01:12] LABS: HCG,QUALITATIVE BLOOD NEGATIVE
[2023-12-18 01:13] LABS: ALBUMIN 3.2 g/dL (3.2-5.5); ALBUMIN/GLOBULIN RATIO 0.7 (1.0-2.2); ALKALINE PHOSPHATASE 77 IU/L (42-121); ALT ALANINE AMINOTRANSFERASE 9 IU/L (10-60); AST ASPARTATE AMINOTRANSFERASE 13 IU/L (10-42); BILIRUBIN,TOTAL 0.2 mg/dL (0.2-1.0); BUN - BLOOD UREA NITROGEN 13 mg/dL (6-20); CALCIUM 9.2 mg/dL (8.5-10.3); CARBON DIOXIDE - CO2 28 mmol/L (21-32); CHLORIDE 100 mmol/L (101-111); CREATININE 0.7 mg/dL (0.6-1.3); GFR - MDRD 94 (>89); GLUCOSE 97 mg/dL (74-104); POTASSIUM 3.9 mmol/L (3.5-4.5); SODIUM 134 mmol/L (135-145)
--- NOTE | 2023-12-18 01:18 | XRAY Report ---
PROCEDURE: Chest for Line Placement INDICATIONS: central line placement TECHNIQUE: One view of the chest was acquired. COMPARISON: CXR 06/20/2023. FINDINGS: Surgical changes and devices: Right-sided central venous line with the catheter tip at the cavoatria l junction. Lungs and pleura: No pleural effusions or pneumothorax. Lungs are clear. Mediastinum: Mediastinal contours appear normal. Heart size is normal. Bones and chest wall: No suspicious bony lesions. Overlying soft tissues appear unremarkable. IMPRESSION: No acute cardiopulmonary process. Right sided central venous line with the catheter tip at the caval atrial junction. Reviewed by: Alexandr Hendricks MD on 12/18/2023 1:16 AM PDT Approved by: Alexandr Hendricks MD on 12/18/2023 1:16 AM PDT Station ID: [id number]
[2023-12-18] MEDS ORDERED: cefTRIAXone 2 GM VIAL ONE (01:26)
[2023-12-18] MEDS: HYDROmorphone 1 MG/ML CARPUJECT IVP STA (01:28)
[2023-12-18] MEDS: cefTRIAXone 2 GM in SODIUM CHLORIDE 0.9% MINIBAG 100 ML IV STA (01:29)
--- NOTE | 2023-12-18 01:34 | ED Physician Documentation ---
ED Addendum - Addendum Addendum: 12/18/23 01:30 The patient was signed out to me at change of shift, pending IV placement, labs, and further imaging, followed by admission to the hospital, after presenting to the emergency department with pain in her right arm and right leg. Patient has a history of polysubstance abuse including injection drug use with both fentanyl and methamphetamines. She was suspected to have abscesses of both her right upper arm and right upper leg and ultrasound was obtained to further evaluate this. She was found to have an especially large abscess in her right thigh and a smaller abscess in her right deltoid, though due to the complexity of the tissue with extensive scarring, it is unclear if that is the extent of her infectious burden. The case had been discussed with Dr. Garcia, our on-call surgeon, prior to signout and he had expressed that while he is willing to take the patient to the operating room under any circumstances if she is septic, given that she is not currently septic, we need to establish IV access and get blood work before intervention can move forward. The patient had been through multiple attempts at IV placement by multiple nurses, including 2 attempts with ultrasound. Due to her extremely poor peripheral access, no IV was able to be obtained. The patient initially declined to have central line placed but it was explained to her that we really cannot move forward with any treatment of the patient until we have an IV. She then finally agreed to placement of the IV central line. I did go through the consent form with her and after an explanation of the procedure and why it is necessary, the patient did agree to have it performed. She was sterilely prepped and draped and the area of planned Access of her right subclavian vein was locally anesthetized with lidocaine. The vein was easily accessed and line placed via Seldinger technique. Blood was drawn from the triple-lumen catheter before flushing and after line was secured, x-ray was obtained to confirm placement and evaluate for pneumothorax, and this was read by the radiologist as showing good line placement and no pneumothorax. I spoke with Dr. Seay, who is on-call for hospitalist service and she did accept the patient for admission. The surgeon had requested CTs with contrast of the right arm and the right leg and these were ordered And performed, prior to the patient being transferred to the medical floor. After the patient was taken to the floor, I received radiology interpretations of the patient's CTs and along with showing multiple abscesses in the patient's right arm, the radiologist noted "a partially visualized pneumothorax". I did review the chest x-ray that was originally done, and did note a very very tiny pneumothorax. This was surprising, given that the central line was easily placed with 1 pass with no air entry into the syringe despite drying back through the entire advancement of the needle. I did speak with Dr. Garcia, our surgeon, who did order an x-ray and surgical service will follow the progress of the pneumothorax on the floor. Final impression 1. Abscesses in multiple locations 2. Pneumothorax, Presumed iatrogenic Disposition: Admit to internal medicine service in serious condition. 12/18/23 04:05 12/18/23 05:22
[2023-12-18] MEDS ORDERED: iohexoL-300 150 ML BOTTLE ONE (01:37)
[2023-12-18] MEDS ORDERED: VANCOMYCIN 1 GM VIAL ONE (01:38)
[2023-12-18] MEDS: VANCOMYCIN INJ 1 GM in SODIUM CHLORIDE 0.9% 250 ML IV ONE (01:42)
--- NOTE | 2023-12-18 02:20 | HISTORY & PHYSICAL EXAMINATION ---
Chief Complaint - Chief Complaint Chief Complaint: RUE pain History of Present Illness - Admitted From Admitted From:: ER - History Obtained From Records Reviewed: Yes History obtained from: Pt, staff, chart Exam Limitations: Virtual exam - History of Present Illness HPI Comment/Other: H&P was conducted via video remotely. [place] in [place] Physician [place] in [place]. DERRICK MAN is at bedside. 38 yo F with PMH of IVDA and recurrent abscesses, Homelessness, Anxiety, Polycythemia presented to the ER with c/o a 2 week h/o RUE and RLE pain and bulging. Pt uses IV Meth/Fentanyl. She last used Meth IV just before coming to the ER. No F/C, CP/SOB, Abdo pain, N/V. In June 2023 she underwent I&D of a right deltoid abscess. In the ER, WBC 11.6, Hgb 10.2, MCH 26.7, Na 134, UDS: +opiates, Benzos, BC pending. Pt refused IV access initially. CXR: NAD, +central line Right thigh U/S: subcutaneous hypoechoic mass 8 x 3 x 1 cm - suspect abscess or hematoma Right deltoid U/S: hypoechoic mass 3.2 x 1.1 cm - suspect abscess or hematoma General Surgery consulted on pt, recommended A/Bs, CT RUE and RLE to clarify lesions, then surgical drainage of abscesses. Pt was given IVF, Dilaudid, Doxy, Rocephin/Vanco in the ER. History - Past Medical History Cardiovascular: reports: None Respiratory: reports: None Neuro: reports: None Endocrine/Autoimmune: reports: None GI: reports: None ARTILLERY OFFICER: reports: None : reports: Incontinence HEENT: reports: None Psych: reports: Depression, Anxiety Musculoskeletal: reports: None Derm: reports: Other MRSA Hx?: No - Past Surgical History General: reports: Cholecystectomy, Appendectomy /ARTILLERY OFFICER: reports: Tubal ligation HEENT: reports: Tonsil/Adenoidectomy - POLST Patient has POLST: No Meds/Allgy - Home Medications Home Medications: Ambulatory Orders Medication Instructions Recorded Confirmed Amox/Clav 875/125 [Augmentin 1 tablet PO Q12H 5 Days #10 tablet 06/23/23 875/125 Tab] traMADol [Ultram] 50 mg PO Q6H PRN #20 tablet 06/23/23 - Allergies Allergies/Adverse Reactions: Allergies Allergy/AdvReac Type Severity Reaction Status Date / Time Sulfa (Sulfonamide Allergy Rash Verified 12/17/23 19:33 Antibiotics) Review of Systems - All Other Systems All Other Systems: reports: Reviewed and negative Exam - Vital Signs Reviewed Vital Signs: Yes Vital Signs: Vital Signs x48h Temp Pulse Resp BP Pulse Ox 12/18/23 01:11 36.3 C L 83 12 122/74 99 12/18/23 00:47 80 18 118/77 99 12/18/23 00:44 82 12 118/77 98 12/18/23 00:39 36.1 C L 84 12 117/85 H 98 12/18/23 00:27 36.3 C L 74 13 114/82 H 97 12/17/23 22:20 88 18 126/86 H 99 12/17/23 22:14 36.1 C L 12/17/23 21:11 95 18 100 12/17/23 19:33 36.8 C 99 16 140/90 H 100 - Physical Exam General Appearance: positive: No acute distress, Alert Eyes Bilateral: positive: EOMI, No scleral icterus ENT: positive: No signs of dehydration Respiratory: positive: Other (Access cart stethoscope not working; per ER Provider: CTA B/L) Cardiovascular: positive: Other (Access cart stethoscope not working; per ER Provider: RRR, no murmurs) Abdomen: positive: Other (per ER Provider: non-distended, NT, Soft) Extremities: positive: Other (Per Surgeon: RLE - Fullness to palpation over right anterolateral thigh. No cellulitis, ecchymosis, drainage RUE - Normal ROM and sensation right hand; No palpable mass or fluid collection in the hand, forearm, elbow, or upper arm; No cellulitis) Neurologic/Psychiatric: positive: Oriented x3, Other (Tearful; A+Ox3, normal speech, cooperative; per ER Provider: NFD) Conclusion/Plan - Problem List (1) Abscess of multiple sites Conclusion/Plan: Abscesses, multiple sites R thigh abscess RUE abscess Recurrent abscesses Leukocytosis IVDA with Meth/Fentanyl -WBC 11.6, UDS: +opiates, Benzos, BC pending. -CXR: NAD, +central line -Right thigh U/S: subcutaneous hypoechoic mass 8 x 3 x 1 cm - suspect abscess or hematoma -Right deltoid U/S: hypoechoic mass 3.2 x 1.1 cm - suspect abscess or hematoma -General Surgery consulted on pt, recommended A/Bs, CT RUE and RLE to clarify lesions, then surgical drainage of abscesses. -Pt was given IVF, Dilaudid, Doxy, Rocephin/Vanco in the ER. -admit to Med Surg -continue Rocephin/Vanco -CT RUE and RLE -mgmt per General Surgery -IVF, pain control, NPO -supportive care for possible W/D from drugs Anemia, microcytic -Hgb 10.2, MCH 26.7 -check iron studies Homelessness - consult Anxiety -Hydroxyzine PRN VTE Prophylaxis: SCDs/pre-op Code Status: Full Code ~Yanet Seay MD Hospitalist - Lab Results Lab results reviewed: Yes Fish Bones: 12/18/23 00:45 12/18/23 00:45
[2023-12-18] MEDS ORDERED: ONDANSETRON ODT 4 MG TABLET TL PRN (02:29)
[2023-12-18] MEDS ORDERED: ONDANSETRON 4 MG/2 ML VIAL IVP PRN (02:29)
[2023-12-18] MEDS: iohexoL-300 150 ML BOTTLE IVP ONE (02:32)
[2023-12-18 03:06] LABS: AMPHETAMINE SCREEN,URINE POSITIVE (NEGATIVE); BARBITURATE SCREEN,UR NEGATIVE (NEGATIVE); BENZODIAZEPINES SCREEN, URINE NEGATIVE (NEGATIVE); BUPRENORPHINE SCREEN, URINE NEGATIVE (NEGATIVE); COCAINE SCREEN URINE NEGATIVE (NEGATIVE); METHADONE SCREEN, URINE NEGATIVE (NEGATIVE); METHAMPHETAMINES SCREEN, URINE POSITIVE (NEGATIVE); OPIATE SCREEN, URINE POSITIVE (NEGATIVE); OXYCODONE SCREEN, URINE NEGATIVE (NEGATIVE); THC CANNABINOID SCREEN, URINE NEGATIVE (NEGATIVE); TRICYCLIC ANTIDEPRESSANT,URINE NEGATIVE (NEGATIVE)
[2023-12-18] MEDS: oxyCODONE 5 MG TABLET PO PRN (03:31)
[2023-12-18] MEDS: LACTATED RINGERS 1,000 ML IV SCH (03:34)
[2023-12-18] MEDS: HYDROmorphone 0.5 MG/0.5 ML SYRINGE IVP PRN ×2 (04:06→08:17)
[2023-12-18] MEDS: SODIUM CHLORIDE FLUSH 0.9% 10 ML SYRINGE IVP PRN (04:07)
[2023-12-18 05:35] LABS: BASOPHILS % (AUTO) 0.3 %; EOSINOPHILS # (AUTO) 0.2 10^3/uL (0.0-0.7); EOSINOPHILS % (AUTO) 1.8 %; HCT - HEMATOCRIT 31.1 % (37.0-47.0); HGB - HEMOGLOBIN 9.9 g/dL (12.0-16.0); LYMPHOCYTES # (AUTO) 2.3 10^3/uL (1.5-3.5); LYMPHOCYTES % (AUTO) 25.8 %; MEAN CORPUSCULAR HEMOGLOBIN 26.8 pg (27.0-31.0); MEAN CORPUSCULAR HGB CONC 31.8 g/dL (32.0-36.0); MEAN CORPUSCULAR VOLUME 84.3 fL (81.0-99.0); MEAN PLATELET VOLUME 7.8 fL (7.9-10.8); MONOCYTES # (AUTO) 0.4 10^3/uL (0.0-1.0); NEUTROPHILS # (AUTO) 5.9 10^3/uL (1.5-6.6); NEUTROPHILS % (AUTO) 67.1 %; PLT - PLATELET COUNT 357 10^3/uL (130-450); RED BLOOD COUNT 3.69 10^6/uL (4.20-5.40); RED CELL DISTRIBUTION WIDTH 14.6 % (12.0-15.0); WHITE BLOOD COUNT 8.8 x10^3/uL (4.8-10.8)
[2023-12-18 05:49] LABS: CALCIUM 8.7 mg/dL (8.5-10.3); CREATININE 0.7 mg/dL (0.6-1.3); POTASSIUM 3.8 mmol/L (3.5-4.5)
[2023-12-18] MEDS ORDERED: LIDOCAINE-MPF 2% 5 ML VIAL ONE (05:49)
[2023-12-18] MEDS ORDERED: lidocaine 1% 20 ML MDV ONE (05:49)
[2023-12-18] MEDS ORDERED: HYDROmorphone 2 MG/ML VIAL ONE (06:13)
--- NOTE | 2023-12-18 06:21 | PROVIDER PROGRESS NOTE ---
Progress Note General Surgery Progress Note I was called by the ED physician (Dr. Ramandeep Allen)around 0400. She told me that she placed a right subclavian line at midnight and the intial CXR was read as normal. During the CT scan of the RUE, a right pneumothorax was seen on the adjacent chest image and Ramandeep asked me to obtain a CXR since the patient was admitted and she could not place the order. The 0500 CXR revealed a large right pneumothorax. I arrived at the hospital and examined the patient. She was comfortable and not in respiratory distress. Breath sounds on the right were absent. Assessment: 1) Iatrogenic right pneumothorax Plan: 1) Urgent right tube thoracostomy <><><><><> Consent: Right tube thoracostomy under local with IV dilaudid for analgesia Gill has been counseled for the procedure, it's indications, risks, benefits and expected outcome as well as alternative therapies. We specifically discussed risks associated with anesthesia, bleeding, infection, injury to surrounding structures which may require additional surgery. Gill understands, agrees, and consents to the proposed operative strategy and requests that we proceed with the procedure as outlined in our discussion. Marlo Garcia MD, [facility] General Surgery Service
[2023-12-18] MEDS: ACETAMINOPHEN 325 MG TABLET PO PRN (06:25)
[2023-12-18] MEDS: hydrOXYzine PAMOATE 25 MG CAPSULE PO PRN (06:25)
--- NOTE | 2023-12-18 06:31 | OPERATIVE REPORT ---
Operative Report - General Admit Date: 12/18/23 - Other Other Information/Narrative: Chest Tube Insertion PROCEDURE DATE: 12/18/2023 SURGEON: Marlo Garcia MD, [facility] CELERY WRAPPER SURGEON: None. PREOPERATIVE DIAGNOSIS: Iatrogenic right pneumothorax POSTOPERATIVE DIAGNOSIS: Iatrogenic right pneumothorax NAME OF PROCEDURE: Right tube thoracostomy (35873) ANESTHESIA: Local (2% Lidocaine) with IV Dilaudid (0.5 mg IV x 2). ESTIMATED BLOOD LOSS: 2 ml DESCRIPTION OF PROCEDURE: After consent for the procedure was obtained, a surgical time-out was performed indicating the patient and the procedure to be performed. In the semi-sitting position IV dilaudid was administered. The right chest was prepped with betadine and draped in a sterile fashion. Two percent Lidocaine without epinephrine was used for local anesthesia throughout the procedure. The right arm was extended above the head to separate the ribs. A 1 cm transverse incision was made in the skin over the rib space in the infra- mammary fold. The upper border of the rib was palpated and anesthetized. A curved Cadet scissors was used to enter the right chest cavity . Digital exam did not reveal adhesions to the inner aspect of the thoracic wall. A number 28 F chest tube was placed into the chest cavity in an cali-posterior direction. The chest tube was connected to a pleura-vac chamber and the tube was secured to the skin with a 2-0 silk U-stitch and a separate 2-0 silk suture. The 20-silk U-stitch was tied in such a way to permit skin closure once the tube was removed. Dressings were placed. A post-procedure CXR showed the tube to be in good position with resolution of the pneumothorax. The patient tolerated the procedure well and was brought to recovery with stable vital signs. All images were personally reviewed by me for this encounter. Mic Garcia MD, FACS General Surgery Service
[2023-12-18] MEDS: SODIUM CHLORIDE FLUSH 0.9% 10 ML SYRINGE IVP SCH (08:22)
--- NOTE | 2023-12-18 09:05 | PROVIDER PROGRESS NOTE ---
Subjective - Prog Note Date Prog Note Date: 12/18/23 Prog Note Time: 09:03 - Subjective Pt reports feeling: Worse Subjective: Ms. Lazcano is a 38-year-old female who presented to the emergency department with right arm pain right thigh pain on 12/16. She reported the symptoms started a few days ago, felt there was possibly something in her arm. She reports a history of IV drug use. She has been seen here in the past for abscesses to the upper extremity, most recently back in June requiring an incision and drainage. She stated she used IV drugs shortly prior to arrival. In the ED she was not febrile or tachycardic. She had reproducible anterior right bicep tenderness with possible induration versus scar tissue on examination. Similar findings on right upper leg as well. No significant signs of fluctuance to palpation of right shoulder or right anterior thigh. No significant erythema or warmth on examination. Ultrasound performed of right upper arm and right leg. Ultrasound of right leg shows significant abscess 8 cm x 3 cm x 1 cm and several smaller abscesses right deltoid. CT demontrated a large abscess in the lateral rectus femorus on the right and small abscesses right deltoid. A right subclavian central line was placed due to difficult IV access and placement was confirmed with chest c-ray. She developed a subsequent iatrogenic right pneumothorax which was noted on right upper extremity CT and confirmed with subsequent chest CT. Dr. Garcia placed a chest tube and was consulted for management of abscesses. As she is not septic, surgical interventions will be done after admission. She was admitted for IV antibiotics and pain management and will follow with surgery for management of the abcesses and chest tube. Upon assessment, she in reclined in bed with feet pulled up, eyes partially open. She is uncooperative with most of the exam, both questions and physical assessment. She reports significant pain in the right chest and repeatedly requests more pain meds. A male with a cast on his lower extremity is present in the room, unclear what relationship he has to Ms. Lazcano. Her dilaudid was increased from 0.5 q 2 hrs to 1 mg q 3 hrs and IV toradol was added for multimodal pain management. Current Medications - Current Medications Current Medications: Active Medications Generic Name Dose Route Start Last Admin Trade Name Freq PRN Reason Stop Dose Admin Acetaminophen 650 mg 12/18/23 02:29 12/18/23 06:25 Acetaminophen 325 Mg Tablet PO 650 mg Q4HR PRN Administration Pain 1 to 4, or Fever Hydromorphone HCl 1 mg 12/18/23 11:00 Hydromorphone 1 Mg/Ml Carpuject IVP Q3H PRN Pain 8 to 10 Hydroxyzine Pamoate 25 mg 12/18/23 03:03 12/18/23 06:25 Hydroxyzine Pamoate 25 Mg Capsule PO 25 mg Q6H PRN Administration Anxiety Lactated Ringer's 1,000 mls @ 100 mls/hr 12/18/23 03:00 12/18/23 03:34 Lr IV 100 mls/hr .Q10H ELIESER Administration Ceftriaxone Sodium 2 gm/ 100 mls @ 200 mls/hr 12/18/23 21:00 Sodium Chloride IV Q24H ELIESER Ondansetron HCl 4 mg 12/18/23 02:29 Ondansetron Odt 4 Mg Tablet TL Q6HR PRN Nausea / Vomiting Ondansetron HCl 4 mg 12/18/23 02:29 Ondansetron 4 Mg/2 Ml Vial IVP Q6HR PRN Nausea / Vomiting Oxycodone HCl 5 mg 12/18/23 02:29 12/18/23 03:31 Oxycodone 5 Mg Tablet PO 5 mg Q4HR PRN Administration Pain 5 to 7 Sodium Chloride 10 ml 12/18/23 02:29 12/18/23 06:14 Sodium Chloride Flush 0.9% 10 Ml Syringe IVP 10 ml PRN PRN Administration NEEDED PER PROVIDER ORDERS Sodium Chloride 10 ml 12/18/23 09:00 12/18/23 08:22 Sodium Chloride Flush 0.9% 10 Ml Syringe IVP 10 ml 0100,0900,1700 ELIESER Administration Objective - Vital Signs/Intake & Output Reviewed Vital Signs: Yes Vital Signs: Vital Signs x48h Temp Pulse Pulse Resp BP BP Pulse Ox 12/18/23 07:58 36.7 C 81 16 120/78 99 12/18/23 03:37 37.1 C 73 14 121/84 H 98 12/18/23 02:28 76 14 122/87 H 98 12/18/23 01:11 36.3 C L 83 12 122/74 99 Intake & Output: Intake & Output 12/15/23 12/16/23 12/17/2312/17/24 23:59 23:59 23:59 23:59 Intake Total 488 Balance 488 - Objective General Appearance: positive: Alert, Moderate distress, Other (38 y/o female, uncooperative with exam and c/o severe pain) Eyes Bilateral: positive: Other (Eyes partially open, would not allow pupillary exam and did not participate in EOM evaluation) Neck: positive: Nml inspection Respiratory: positive: No respiratory distress, Breath sounds nml (Exam limited as patient would not allow auscultation of the right base and would not assist with positioning.), Other (Chest tube in place to wall suction, intermittent air leak with respiration). negative: Chest non-tender (Pain right lateral chest, especially at chest tube insertion site), Wheezes, Rales, Rhonchi Cardiovascular: positive: Regular rate & rhythm, No murmur, No gallop Abdomen: positive: Other (Did not cooperate or allow exam) Back: positive: Other (Not visualized) Skin: positive: Color nml, No rash, Warm, Dry, Other (Did not allow exam of right upper and lower extremity, no obvious rashes or lesions on visible skin) Extremities: positive: Nml appearance, No pedal edema, Other (Did not allow focused exam of extremities) Neurologic/Psychiatric: positive: Motor nml (Moves all extremities with no obvious deficit). negative: Mood/affect nml (Uncooperative and agitated with exam, refused to answer most questions or allow complete exam, unable to determine orientation) - Lab Results Fish Bones: 12/18/23 04:44 12/18/23 04:44 Other Labs: Lab Results x24hrs 12/18/23 12/18/23 12/18/23 Range/Units 04:44 04:44 02:44 WBC 8.8 (4.8-10.8) x10^3/uL RBC 3.69 L (4.20-5.40) 10^6/uL Hgb 9.9 L (12.0-16.0) g/dL Hct 31.1 L (37.0-47.0) % MCV 84.3 (81.0-99.0) fL MCH 26.8 L (27.0-31.0) pg MCHC 31.8 L (32.0-36.0) g/dL RDW 14.6 (12.0-15.0) % Plt Count 357 (130-450) 10^3/uL MPV 7.8 L (7.9-10.8) fL Neut # (Auto) 5.9 (1.5-6.6) 10^3/uL Lymph # (Auto) 2.3 (1.5-3.5) 10^3/uL Terrell # (Auto) 0.4 (0.0-1.0) 10^3/uL Eos # (Auto) 0.2 (0.0-0.7) 10^3/uL Baso # (Auto) 0.0 (0.0-0.1) 10^3/uL Absolute Nucleated RBC 0.00 x10^3/uL Nucleated RBC % 0.0 /100WBC Sodium 134 L (135-145) mmol/L Potassium 3.8 (3.5-4.5) mmol/L Chloride 101 (101-111) mmol/L Carbon Dioxide 28 (21-32) mmol/L Anion Gap 5.0 L (6-13) BUN 11 (6-20) mg/dL Creatinine 0.7 (0.6-1.3) mg/dL Estimated GFR (MDRD) 94 (>89) Glucose 86 (74-104) mg/dL Calcium 8.7 (8.5-10.3) mg/dL Iron 28 L (50-212) ug/dL TIBC 252 (250-450) ug/dL % Saturation 11 L (20-50) % Transferrin 180 L (203-362) mg/dL Total Bilirubin (0.2-1.0) mg/dL AST (10-42) IU/L ALT (10-60) IU/L Alkaline Phosphatase (42-121) IU/L Total Protein (6.4-8.9) g/dL Albumin (3.2-5.5) g/dL Globulin (2.1-4.2) g/dL Albumin/Globulin Ratio (1.0-2.2) Serum HCG, Qual Urine Opiates Screen POSITIVE H (NEGATIVE) Ur Buprenorphine Scrn NEGATIVE (NEGATIVE) Ur Oxycodone Screen NEGATIVE (NEGATIVE) Urine Methadone Screen NEGATIVE (NEGATIVE) Ur Barbiturates Screen NEGATIVE (NEGATIVE) Ur Tricyclics Screen NEGATIVE (NEGATIVE) Ur Phencyclidine Scrn NEGATIVE (NEGATIVE) Ur Amphetamine Screen POSITIVE H (NEGATIVE) U Methamphetamines Scrn POSITIVE H (NEGATIVE) U Benzodiazepines Scrn NEGATIVE (NEGATIVE) Urine Cocaine Screen NEGATIVE (NEGATIVE) U Cannabinoids Screen NEGATIVE (NEGATIVE) Ur Drug Screen Comment CUTOFF CONC BELOW: 12/18/23 12/18/23 Range/Units 00:45 00:45 WBC 11.6 H (4.8-10.8) x10^3/uL RBC 3.82 L (4.20-5.40) 10^6/uL Hgb 10.2 L (12.0-16.0) g/dL Hct 32.5 L (37.0-47.0) % MCV 85.1 (81.0-99.0) fL MCH 26.7 L (27.0-31.0) pg MCHC 31.4 L (32.0-36.0) g/dL RDW 14.5 (12.0-15.0) % Plt Count 361 (130-450) 10^3/uL MPV 7.6 L (7.9-10.8) fL Neut # (Auto) 9.1 H (1.5-6.6) 10^3/uL Lymph # (Auto) 1.8 (1.5-3.5) 10^3/uL Terrell # (Auto) 0.4 (0.0-1.0) 10^3/uL Eos # (Auto) 0.1 (0.0-0.7) 10^3/uL Baso # (Auto) 0.0 (0.0-0.1) 10^3/uL Absolute Nucleated RBC 0.00 x10^3/uL Nucleated RBC % 0.0 /100WBC Sodium 134 L (135-145) mmol/L Potassium 3.9 (3.5-4.5) mmol/L Chloride 100 L (101-111) mmol/L Carbon Dioxide 28 (21-32) mmol/L Anion Gap 6.0 (6-13) BUN 13 (6-20) mg/dL Creatinine 0.7 (0.6-1.3) mg/dL Estimated GFR (MDRD) 94 (>89) Glucose 97 (74-104) mg/dL Calcium 9.2 (8.5-10.3) mg/dL Iron (50-212) ug/dL TIBC (250-450) ug/dL % Saturation (20-50) % Transferrin (203-362) mg/dL Total Bilirubin 0.2 (0.2-1.0) mg/dL AST 13 (10-42) IU/L ALT 9 L (10-60) IU/L Alkaline Phosphatase 77 (42-121) IU/L Total Protein 8.0 (6.4-8.9) g/dL Albumin 3.2 (3.2-5.5) g/dL Globulin 4.8 H (2.1-4.2) g/dL Albumin/Globulin Ratio 0.7 L (1.0-2.2) Serum HCG, Qual NEGATIVE Urine Opiates Screen (NEGATIVE) Ur Buprenorphine Scrn (NEGATIVE) Ur Oxycodone Screen (NEGATIVE) Urine Methadone Screen (NEGATIVE) Ur Barbiturates Screen (NEGATIVE) Ur Tricyclics Screen (NEGATIVE) Ur Phencyclidine Scrn (NEGATIVE) Ur Amphetamine Screen (NEGATIVE) U Methamphetamines Scrn (NEGATIVE) U Benzodiazepines Scrn (NEGATIVE) Urine Cocaine Screen (NEGATIVE) U Cannabinoids Screen (NEGATIVE) Ur Drug Screen Comment ABX Reporting Has patient been on IV antibiotics over the past 48 hours?: Yes Sepsis Event Note (H) - Evaluation Current Stage of Sepsis: Ruled out Assessment/Plan - Problem List (1) Abscess of multiple sites Impression: ED exam on 12/16 as she did not allow me to assess: "Right upper arm shows repr oducible anterior shoulder induration but no significant fluctuance or warmth or discharge on examination. Right anterior thigh shows no signs of induration significant swelling or fluctuance on examination." CT showed 2.7 x 1.7 x 8.4 abcess in the lateral rectus femoris on the right and several small abscesses right deltoid. Dr Ridley, surgery, rounded on the patient this morning and recommends IR drainage for the abscesses if possible to avoid creating an open wound due to unstable housing and anticipated difficulty with outpatient wound management. IR contacted and requested ultrasound of the right thigh to evaluate if its drainable, stated the right deltoid abscesses are not suitable for drainage due to size and loculations. She was started on IV ceftriaxone and vancomycin in the ED and this will be continued. I will also swab nares for MRSA. Dr Moreno hopes the deltoid abscesses may respond to IV antibiotics without surgical intervention. (2) Pneumothorax due to and not concurrent with procedure Impression: Iatrogenic "moderate to large" right pneumothorax without mediastinal shift after right subclavian placement. Right chest tube placed by Dr. Garcia and currently to suction with intermittent air leak. Chest x-ray shows minimal re sidual right pneumothorax, lung sounds clear upper and lower morgan, unable to auscultate bases as patient refused that portion of the exam. O2 sats 99% on RA with no evident respiratory distress. She reports significant right sided chest pain but is not cooperative with further evalaution. Dr. Ridley will recheck the chest tube at noon and plans to see if she tolerates water seal. I will continue to monitor respiratory status and work to manage pain. (3) Acute pain Impression: Ms. Lazcano reports significant pain right sided chest pain and is uncoope rative with most parts of the exam and questions, including evaluation of the areas of abscesses. She has a hx of opiate and methamphetamine abuse, making adequate pain management difficult. Her eyes were half open when I entered the room and she appeared to take a moment to rouse, unclear whether this is sedation from pain management, pain, or refusal to interact. Her dilaudid was increased fro 0.5 mg IV q 2 hrs to 1 mg q 3 hrs and I added IV toradol with a one time dose of 30 mg IV and then scheduled 15 mg IV doses q 8 hrs. I will continue to assess pain and work to manage it safely with consideration of high tolerance for narcotics. (4) Polysubstance abuse Impression: Hx IV methamphetamine and opiate abuse with multiple previous abscesses and dif ficult IV access. This is likely the underlying cause of her current abscesses. A right subclavian was placed in the ED as peripheral labs and IV access was not possible. I will monitor her for withdrawals and manage appropriately as needed. (5) Anemia Impression: Hgb 9.9, likely LAURY as her iron is low at 28. Given her unstable housing situation and current polysubstance use, she likely has poor nutrition and dietary intake. She is above the transfusion threshold and does not require treatment at this time. Qualifiers: Iron deficiency anemia type: unspecified iron deficiency (6) Hyponatremia Impression: Mild hyponatremia with sodium of 134 on 12/16. This is likely due to poor nutr ition and po intake. No treatment is needed at this time. I will continue to monitor daily during admission. (7) Substance induced mood disorder Impression: She reports a hx of anxiety and depression, likely exacerbated or due to her polysbustance use. She does not report taking any prescribed medications for it. She has been intermittently resistant to care and has yelled on several occasions since coming to the floor. This may complicate her care and lead her to make decisions which have detrimental health outcomes.
--- NOTE | 2023-12-18 09:18 | CT Report ---
PROCEDURE: Lower Extremity RT W INDICATIONS: abscess thigh TECHNIQUE: After administration of contrast 3 mm axial sections acquired of the right thigh, with coronal and sa gittal reformats. For radiation dose reduction, the following was used: automated exposure control, adjustment of mA and/or kV according to patient size. CONTRAST: 75 ML OMNI 300 COMPARISON: Right thigh ultrasound 12/16/2020 FINDINGS: Image quality: Excellent. Bones: No acute osseous fracture or dislocation. No suspicious osseous lesion. No significant arthri tic changes. Soft tissues: Within the lateral portion of the rectus femoris muscle there is a peripherally enhanc ing fluid collection measuring 2.7 x 1.7 x 8.4 cm. There is mild overlying superficial fat stranding. This corresponds to the ultrasound finding from the day prior. No additional fluid collection or abn ormal enhancement is seen in the right thigh. The musculature is normal in bulk. No bulky inguinal ly mphadenopathy. Included pelvic soft tissues in significant abnormality. IMPRESSION: Peripherally enhancing fluid collection in the right rectus femoris muscle measures approximately 2.7 x 1.7 x 8.4 cm and is highly suspicious for abscess. There is no significant discrepancy when compared with the preliminary overnight report. Reviewed by: Andrew Gabriel MD on 12/18/2023 8:17 AM CHRISTINA Approved by: Andrew Gabriel MD on 12/18/2023 8:17 AM CHIRSTINA Station ID: [id number]
--- NOTE | 2023-12-18 09:33 | CT Report ---
PROCEDURE: Upper Extremity RT W INDICATIONS: abscess deltoid TECHNIQUE: After the administration of intravenous contrast material, 2 mm axial sections were obtain ed through the right humerus, with coronal and sagittal reformats. For radiation dose reduction, the following was used: automated exposure control, adjustment of mA and/or kV according to patient size . COMPARISON: Ultrasound 12/17/[address] 06/20/2023 FINDINGS: Image quality: Excellent. Bones: No acute osseous fracture or dislocation. No suspicious osseous lesion. No cortical erosion is seen to suggest osteomyelitis. Soft tissues: Within the lateral and posterior bellies of the right deltoid muscle and the overlying subcutaneous tissues, there is ill-defined enhancing soft tissue material and inflammatory fat strand ing. Small collections of fluid and gas are seen within the proximal deltoid muscle. The largest gricelda ections measure 1.4 x 0.8 x 2.4 cm ( and ), and 1.5 x 0.8 x 2.2 cm ( and ). More inferiorly and predominantly within the subcutaneous tissues, there is a poorly defined collection me asuring 1.2 x 0.9 x 1.8 cm ( and ). Additional smaller collections are less well-defined and may be difficult to target for drainage. Nonenlarged right axillary lymph nodes are most likely reac tive. A few foci of subcutaneous gas are seen on the anterolateral aspect of the right upper arm at t he level of the lateral condyle. A small pneumothorax is partially imaged in the right hemithorax. IMPRESSION: 1.Multiple small peripherally enhancing fluid collections suspicious for abscesses along the superfic ial portion of the deltoid muscle and the overlying subcutaneous tissues. Collections are located wit hin a larger area of inflammation suspicious for cellulitis and/or myositis. 2.Right pneumothorax is partially imaged on this exam. Recommend CT of the chest for further evaluati on. There is no significant discrepancy when compared with the preliminary overnight report. Reviewed by: Andrew Gabriel MD on 12/18/2023 8:32 AM CH[facility]STINA Approved by: Andrew Gabirel MD on 12/18/2023 8:32 AM CHRISTINA Station ID: [id number]
--- NOTE | 2023-12-18 09:41 | XRAY Report ---
PROCEDURE: Chest for Line Placement INDICATIONS: ? right pneumothorax TECHNIQUE: One view of the chest was acquired. COMPARISON: Chest x-ray 12/18/2023 FINDINGS: Surgical changes and devices: Right-sided central venous catheter is unchanged. Lungs and pleura: Unchanged appearance of right pneumothorax measuring approximately 4.1 cm. Mediastinum: Mediastinal contours appear normal. Heart size is normal. Bones and chest wall: No suspicious bony lesions. Overlying soft tissues appear unremarkable. IMPRESSION: Unchanged appearance of right pneumothorax. Reviewed by: Chloe Glover MD on 12/18/2023 9:39 AM PDT Approved by: Chloe Glover MD on 12/18/2023 9:39 AM PDT Station ID: [id number]
--- NOTE | 2023-12-18 09:42 | XRAY Report ---
PROCEDURE: Chest for Line Placement INDICATIONS: Right Chest Tube TECHNIQUE: One view of the chest was acquired. COMPARISON: Chest x-ray 12/18/23 FINDINGS: Surgical changes and devices: Right-sided central venous catheter is unchanged. Right-sided chest tu be is present. Lungs and pleura: Marked interval improvement previous right pneumothorax with minimal residual. Mediastinum: Mediastinal contours appear normal. Heart size is normal. Bones and chest wall: No suspicious bony lesions. Overlying soft tissues appear unremarkable. IMPRESSION: Interval chest tube placement with minimal residual pneumothorax. Reviewed by: Chloe Glover MD on 12/18/2023 9:40 AM PDT Approved by: Chloe Glover MD on 12/18/2023 9:40 AM PDT Station ID: [id number]
--- NOTE | 2023-12-18 10:04 | CT Report ---
PROCEDURE: Chest WO INDICATIONS: Abnormal imaging; R side Ptx TECHNIQUE: A CT scan of the chest was performed. Intravenous contrast media was not administered. Images were re corded and evaluated at appropriate window settings. Reformats: axial MIP of the chest, coronal and s agittal. For radiation dose reduction, the following was used: automated exposure control, adjustment of mA and/or kV according to patient size. COMPARISON: Chest x-ray 12/18/2023 FINDINGS: Image quality: Diagnostic. Chest wall and lower neck: No thyroid nodule which requires sonographic follow up. No axillary or sup raclavicular adenopathy by size. Lungs and pleura: Moderate to large right pneumothorax. No midline shift. Mediastinum: Heart size is normal. No pericardial effusion. No large vessel abnormality. No mediastin al adenopathy by size criteria. Bones: No aggressive osseous abnormality. Upper Abdomen: Status post cholecystectomy with minimal pneumobilia. IMPRESSION: Moderate to large right pneumothorax without midline shift. The above findings are concordant with preliminary report. Reviewed by: Chloe Glover MD on 12/18/2023 10:03 AM PDT Approved by: Chloe Glover MD on 12/18/2023 10:03 AM PDT Station ID: [id number]
[2023-12-18] MEDS: KETOROLAC 30 MG/ML VIAL IVP ONE (10:07)
--- NOTE | 2023-12-18 11:29 | PHARMACY PROGRESS NOTE ---
- Best Possible Medication History Admit Date and Time: 12/18/23 0229 Processed by: Pharmacy Medication History completed: Yes Patient Interview: Completed Secondary Source(s): Insurance records (PER [employer] RECORDS AND PT INTERVIEW WITH [employer]) As the person ultimately responsible for medication therapy, providers are able to order a medication from an existing home medication list in [facility] via the "Reconcile Routine" prior to Confirmation of that medication by applications support analyst. Such practice is discouraged except when the physician, in their clinical judgment, deems that a medical need exists for a medication without regard to previous use.
[2023-12-18] MEDS: HYDROmorphone 1 MG/ML CARPUJECT IVP PRN (12:14)
[2023-12-18] MEDS: PANTOPRAZOLE 40 MG VIAL IVP SCH (12:21)
[2023-12-18] MEDS ORDERED: VANCOMYCIN INJ 1 GM, VANCOMYCIN INJ 250 MG in SODIUM CHLORIDE 0.9% 250 ML IV SCH (12:30)
--- NOTE | 2023-12-18 12:34 | XRAY Report ---
PROCEDURE: Chest 1V INDICATIONS: FU right chest tube placement for pneumothorax TECHNIQUE: One view of the chest was acquired. COMPARISON: Same day chest x-ray FINDINGS: Surgical changes and devices: Right-sided chest tube. Right subclavian central venous catheter tip p rojects over the low SVC. Lungs and pleura: Trace right pneumothorax, similar to x-ray at 9:40 AM. Mediastinum: Mediastinal contours appear normal. Heart size is normal. Bones and chest wall: No suspicious bony lesions. Overlying soft tissues appear unremarkable. Sub cutaneous gas along the right chest wall. IMPRESSION: Trace right pneumothorax, similar to x-ray at 9:40 AM. Right-sided chest tube in place. No evidence o f tension. Reviewed by: Keagan Horowitz MD on 12/18/2023 12:32 PM PDT Approved by: Keagan Horowitz MD on 12/18/2023 12:32 PM PDT Station ID: [id number]
[2023-12-18] MEDS: VANCOMYCIN INJ 1 GM, VANCOMYCIN INJ 250 MG in SODIUM CHLORIDE 0.9% 250 ML IV ONE (12:41)
[2023-12-18] MEDS ORDERED: ACETAMINOPHEN 1,000 MG/100 ML 1,000 MG/100 ML BAG IV PRN (13:06)
--- NOTE | 2023-12-18 16:38 | PROVIDER PROGRESS NOTE ---
Subjective - General Admit Date: 12/18/23 Procedure Date: 12/18/23 Post Op Days: 0 Procedure Performed: right chest tube placement - Review of Systems All Other Systems: positive: Reviewed and negative - Other Other Information/Narrative: Patient complains of pain at chest tube insertion site. Denies pain in arm or leg. No n/v. Objective - Patient Data Reviewed Vital Signs: Yes Vital Signs: Vital Signs x48h Temp Pulse Resp BP Pulse Ox 12/18/23 16:00 36.5 C 67 18 118/76 98 Weight: Weight 12/16/23 12/17/23 12/18/23 23:59 23:59 23:59 Weight (kg) 60.7 kg 58.5 kg Intake & Output: Intake and Output Totals x24h 12/16/23 12/17/23 12/18/23 23:59 23:59 23:59 Intake Total 1488 Balance 1488 - Lab Results Lab Results: 12/18/23 04:44 12/18/23 04:44 Other Lab Results: Lab Results x24hrs 12/18/23 12/18/23 12/18/23 Range/Units 04:44 04:44 02:44 WBC 8.8 (4.8-10.8) x10^3/uL RBC 3.69 L (4.20-5.40) 10^6/uL Hgb 9.9 L (12.0-16.0) g/dL Hct 31.1 L (37.0-47.0) % MCV 84.3 (81.0-99.0) fL MCH 26.8 L (27.0-31.0) pg MCHC 31.8 L (32.0-36.0) g/dL RDW 14.6 (12.0-15.0) % Plt Count 357 (130-450) 10^3/uL MPV 7.8 L (7.9-10.8) fL Neut # (Auto) 5.9 (1.5-6.6) 10^3/uL Lymph # (Auto) 2.3 (1.5-3.5) 10^3/uL [place] # (Auto) 0.4 (0.0-1.0) 10^3/uL Eos # (Auto) 0.2 (0.0-0.7) 10^3/uL Baso # (Auto) 0.0 (0.0-0.1) 10^3/uL Absolute Nucleated RBC 0.00 x10^3/uL Nucleated RBC % 0.0 /100WBC Sodium 134 L (135-145) mmol/L Potassium 3.8 (3.5-4.5) mmol/L Chloride 101 (101-111) mmol/L Carbon Dioxide 28 (21-32) mmol/L Anion Gap 5.0 L (6-13) BUN 11 (6-20) mg/dL Creatinine 0.7 (0.6-1.3) mg/dL Estimated GFR (MDRD) 94 (>89) Glucose 86 (74-104) mg/dL Calcium 8.7 (8.5-10.3) mg/dL Iron 28 L (50-212) ug/dL TIBC 252 (250-450) ug/dL % Saturation 11 L (20-50) % Transferrin 180 L (203-362) mg/dL Total Bilirubin (0.2-1.0) mg/dL AST (10-42) IU/L ALT (10-60) IU/L Alkaline Phosphatase (42-121) IU/L Total Protein (6.4-8.9) g/dL Albumin (3.2-5.5) g/dL Globulin (2.1-4.2) g/dL Albumin/Globulin Ratio (1.0-2.2) Serum HCG, Qual Urine Opiates Screen POSITIVE H (NEGATIVE) Ur Buprenorphine Scrn NEGATIVE (NEGATIVE) Ur Oxycodone Screen NEGATIVE (NEGATIVE) Urine Methadone Screen NEGATIVE (NEGATIVE) Ur Barbiturates Screen NEGATIVE (NEGATIVE) Ur Tricyclics Screen NEGATIVE (NEGATIVE) Ur Phencyclidine Scrn NEGATIVE (NEGATIVE) Ur Amphetamine Screen POSITIVE H (NEGATIVE) U Methamphetamines Scrn POSITIVE H (NEGATIVE) U Benzodiazepines Scrn NEGATIVE (NEGATIVE) Urine Cocaine Screen NEGATIVE (NEGATIVE) U Cannabinoids Screen NEGATIVE (NEGATIVE) Ur Drug Screen Comment CUTOFF CONC BELOW: 12/18/23 12/18/23 Range/Units 00:45 00:45 WBC 11.6 H (4.8-10.8) x10^3/uL RBC 3.82 L (4.20-5.40) 10^6/uL Hgb 10.2 L (12.0-16.0) g/dL Hct 32.5 L (37.0-47.0) % MCV 85.1 (81.0-99.0) fL MCH 26.7 L (27.0-31.0) pg MCHC 31.4 L (32.0-36.0) g/dL RDW 14.5 (12.0-15.0) % Plt Count 361 (130-450) 10^3/uL MPV 7.6 L (7.9-10.8) fL Neut # (Auto) 9.1 H (1.5-6.6) 10^3/uL Lymph # (Auto) 1.8 (1.5-3.5) 10^3/uL [place] # (Auto) 0.4 (0.0-1.0) 10^3/uL Eos # (Auto) 0.1 (0.0-0.7) 10^3/uL Baso # (Auto) 0.0 (0.0-0.1) 10^3/uL Absolute Nucleated RBC 0.00 x10^3/uL Nucleated RBC % 0.0 /100WBC Sodium 134 L (135-145) mmol/L Potassium 3.9 (3.5-4.5) mmol/L Chloride 100 L (101-111) mmol/L Carbon Dioxide 28 (21-32) mmol/L Anion Gap 6.0 (6-13) BUN 13 (6-20) mg/dL Creatinine 0.7 (0.6-1.3) mg/dL Estimated GFR (MDRD) 94 (>89) Glucose 97 (74-104) mg/dL Calcium 9.2 (8.5-10.3) mg/dL Iron (50-212) ug/dL TIBC (250-450) ug/dL % Saturation (20-50) % Transferrin (203-362) mg/dL Total Bilirubin 0.2 (0.2-1.0) mg/dL AST 13 (10-42) IU/L ALT 9 L (10-60) IU/L Alkaline Phosphatase 77 (42-121) IU/L Total Protein 8.0 (6.4-8.9) g/dL Albumin 3.2 (3.2-5.5) g/dL Globulin 4.8 H (2.1-4.2) g/dL Albumin/Globulin Ratio 0.7 L (1.0-2.2) Serum HCG, Qual NEGATIVE Urine Opiates Screen (NEGATIVE) Ur Buprenorphine Scrn (NEGATIVE) Ur Oxycodone Screen (NEGATIVE) Urine Methadone Screen (NEGATIVE) Ur Barbiturates Screen (NEGATIVE) Ur Tricyclics Screen (NEGATIVE) Ur Phencyclidine Scrn (NEGATIVE) Ur Amphetamine Screen (NEGATIVE) U Methamphetamines Scrn (NEGATIVE) U Benzodiazepines Scrn (NEGATIVE) Urine Cocaine Screen (NEGATIVE) U Cannabinoids Screen (NEGATIVE) Ur Drug Screen Comment - Imaging Results Radiology Imaging: positive: Final report received Imaging Results Comments: Repeat CXR shows only trace pneumothorax. - Current Medications Current Medications: Current Medications Generic Name Dose Route Start Last Admin Trade Name Freq PRN Reason Stop Dose Admin Acetaminophen 650 mg 12/18/23 02:29 12/18/23 06:25 Acetaminophen 325 Mg Tablet PO 650 mg Q4HR PRN Administration Pain 1 to 4, or Fever Hydromorphone HCl 1 mg 12/18/23 11:00 12/18/23 15:19 Hydromorphone 1 Mg/Ml Carpuject IVP 1 mg Q3H PRN Administration Pain 8 to 10 Hydroxyzine Pamoate 25 mg 12/18/23 03:03 12/18/23 06:25 Hydroxyzine Pamoate 25 Mg Capsule PO 25 mg Q6H PRN Administration Anxiety Lactated Ringer's 1,000 mls @ 100 mls/hr 12/18/23 03:00 12/18/23 14:00 Lr IV 100 mls/hr .Q10H ELIESER Administration Oxycodone HCl 5 mg 12/18/23 02:29 12/18/23 03:31 Oxycodone 5 Mg Tablet PO 5 mg Q4HR PRN Administration Pain 5 to 7 Sodium Chloride 10 ml 12/18/23 02:29 12/18/23 06:14 Sodium Chloride Flush 0.9% 10 Ml Syringe IVP 10 ml PRN PRN Administration NEEDED PER PROVIDER ORDERS Sodium Chloride 10 ml 12/18/23 09:00 12/18/23 08:22 Sodium Chloride Flush 0.9% 10 Ml Syringe IVP 10 ml 0100,0900,1700 ELIESER Administration - Physical Exam General Appearance: positive: No acute distress, Other (resting at time of my arrival, but uncomfortable once awakened) Eyes Bilateral: positive: Normal inspection ENT: positive: No signs of dehydration Neck: positive: Trachea midline Respiratory: positive: No respiratory distress, Other (right chest tube without air leak, on CWS -[id number]) Cardiovascular: positive: Regular rate & rhythm Abdomen: positive: No distention Extremities: positive: Non-tender, Other (no acute cellulitis or abscess on exam, multiple old wounds all well healed) ABX Reporting Has patient been on IV antibiotics over the past 48 hours?: Yes Impression/Plan - Problem List Problem List: 38 y/o F with: 1. R UE, R LE fluid collections on CT - IR feels neither collection is amenable to drainage/aspiration - no cellulitis or pain at the time of my exam - recommend continued IV abx at this time and will continue to reassess for worsening - patient at high risk for wound care problems, so would like to avoid surgical intervention if not needed. Patient is not septic, having pain or signs of active infection at this time. - ok for patient to take PO at this time 2. iatrogenic pneumothorax - CT without air leak - placed to water seal - will order lidoderm patch to be placed close to CT - if no increase in PTX in AM, I will remove CT which will improve the patient's pain General surgery will continue to follow closely while this patient is inpatient.
[2023-12-18] MEDS: LIDOCAINE PATCH 4% TOP SCH (17:05)
[2023-12-18] MEDS: cefTRIAXone 2 GM in SODIUM CHLORIDE 0.9% MINIBAG 100 ML IV SCH (21:07)
[2023-12-19] MEDS: VANCOMYCIN INJ 1 GM in SODIUM CHLORIDE 0.9% 250 ML IV SCH (00:19)
[2023-12-19 05:34] LABS: BASOPHILS % (AUTO) 0.5 %; EOSINOPHILS # (AUTO) 0.1 10^3/uL (0.0-0.7); HCT - HEMATOCRIT 28.1 % (37.0-47.0); HGB - HEMOGLOBIN 8.5 g/dL (12.0-16.0); LYMPHOCYTES # (AUTO) 2.2 10^3/uL (1.5-3.5); LYMPHOCYTES % (AUTO) 32.5 %; MEAN CORPUSCULAR HEMOGLOBIN 25.9 pg (27.0-31.0); MEAN CORPUSCULAR HGB CONC 30.2 g/dL (32.0-36.0); MEAN CORPUSCULAR VOLUME 85.7 fL (81.0-99.0); MONOCYTES # (AUTO) 0.4 10^3/uL (0.0-1.0); MONOCYTES % (AUTO) 5.4 %; NEUTROPHILS # (AUTO) 3.9 10^3/uL (1.5-6.6); NEUTROPHILS % (AUTO) 58.8 %; PLT - PLATELET COUNT 295 10^3/uL (130-450); RED BLOOD COUNT 3.28 10^6/uL (4.20-5.40); RED CELL DISTRIBUTION WIDTH 14.6 % (12.0-15.0); WHITE BLOOD COUNT 6.6 x10^3/uL (4.8-10.8)
[2023-12-19 05:48] LABS: CALCIUM 8.2 mg/dL (8.5-10.3); CREATININE 0.6 mg/dL (0.6-1.3); POTASSIUM 3.6 mmol/L (3.5-4.5)
[2023-12-19] MEDS: PANTOPRAZOLE 40 MG in SODIUM CHLORIDE 0.9% 100ML 100 ML IV SCH (06:17)
--- NOTE | 2023-12-19 07:12 | PROVIDER PROGRESS NOTE ---
Subjective - General Admit Date: 12/18/23 Procedure Date: 12/18/23 Post Op Days: 1 Procedure Performed: right chest tube placement - Review of Systems All Other Systems: positive: Reviewed and negative - Other Other Information/Narrative: Patient complains of pain when aroused. Sleeping on my entry to her room this AM. Objective - Patient Data Vital Signs: Vital Signs x48h Temp Pulse Resp BP Pulse Ox 12/18/23 23:54 36.6 C 65 18 105/72 96 Weight: Weight 12/17/23 12/18/23 12/19/23 23:59 23:59 23:59 Weight (kg) 60.7 kg 58.5 kg Intake & Output: Intake and Output Totals x24h 12/17/23 12/18/23 12/19/23 23:59 23:59 23:59 Intake Total 2816.333 541.667 Output Total 4 Balance 2816.333 537.667 - Lab Results Lab Results: 12/19/23 05:07 12/19/23 05:07 Other Lab Results: Lab Results x24hrs 12/19/23 12/19/23 12/18/23 Range/Units 05:07 05:07 18:56 WBC 6.6 (4.8-10.8) x10^3/uL RBC 3.28 L (4.20-5.40) 10^6/uL Hgb 8.5 L (12.0-16.0) g/dL Hct 28.1 L (37.0-47.0) % MCV 85.7 (81.0-99.0) fL MCH 25.9 L (27.0-31.0) pg MCHC 30.2 L (32.0-36.0) g/dL RDW 14.6 (12.0-15.0) % Plt Count 295 (130-450) 10^3/uL MPV 8.0 (7.9-10.8) fL Neut # (Auto) 3.9 (1.5-6.6) 10^3/uL Lymph # (Auto) 2.2 (1.5-3.5) 10^3/uL [place] # (Auto) 0.4 (0.0-1.0) 10^3/uL Eos # (Auto) 0.1 (0.0-0.7) 10^3/uL Baso # (Auto) 0.0 (0.0-0.1) 10^3/uL Absolute Nucleated RBC 0.00 x10^3/uL Nucleated RBC % 0.0 /100WBC Sodium 137 (135-145) mmol/L Potassium 3.6 (3.5-4.5) mmol/L Chloride 105 (101-111) mmol/L Carbon Dioxide 29 (21-32) mmol/L Anion Gap 3.0 L (6-13) BUN 11 (6-20) mg/dL Creatinine 0.6 (0.6-1.3) mg/dL Estimated GFR (MDRD) 112 (>89) Glucose 104 (74-104) mg/dL Calcium 8.2 L (8.5-10.3) mg/dL Nasal Screen MRSA (PCR) NEGATIVE (NEGATIVE) - Current Medications Current Medications: Current Medications Generic Name Dose Route Start Last Admin Trade Name Freq PRN Reason Stop Dose Admin Acetaminophen 650 mg 12/18/23 02:29 12/18/23 06:25 Acetaminophen 325 Mg Tablet PO 650 mg Q4HR PRN Administration Pain 1 to 4, or Fever Hydromorphone HCl 1 mg 12/18/23 11:00 12/19/23 03:15 Hydromorphone 1 Mg/Ml Carpuject IVP 1 mg Q3H PRN Administration Pain 8 to 10 Hydroxyzine Pamoate 25 mg 12/18/23 03:03 12/18/23 19:51 Hydroxyzine Pamoate 25 Mg Capsule PO 25 mg Q6H PRN Administration Anxiety Lactated Ringer's 1,000 mls @ 100 mls/hr 12/18/23 03:00 12/19/23 00:19 Lr IV 100 mls/hr .Q10H ELIESER Administration Ceftriaxone Sodium 2 gm/ 100 mls @ 200 mls/hr 12/18/23 21:00 12/18/23 21:37 Sodium Chloride IV Infused Q24H ELIESER Infusion Vancomycin HCl 1 gm/ Sodium 250 mls @ 167 mls/hr 12/19/23 00:30 12/19/23 03:05 Chloride IV Infused Q12H ELIESER Infusion Pantoprazole Sodium 40 mg/ 100 mls @ 200 mls/hr 12/19/23 07:00 12/19/23 06:51 Sodium Chloride IV Infused QDAC ELIESER Infusion Lidocaine 1 patch 12/18/23 16:46 12/18/23 17:05 Lidocaine Patch 4% TOP 1 patch DAILY ELIESER Administration Oxycodone HCl 5 mg 12/18/23 02:29 12/18/23 18:12 Oxycodone 5 Mg Tablet PO 5 mg Q4HR PRN Administration Pain 5 to 7 Sodium Chloride 10 ml 12/18/23 02:29 12/19/23 06:18 Sodium Chloride Flush 0.9% 10 Ml Syringe IVP 10 ml PRN PRN Administration NEEDED PER PROVIDER ORDERS Sodium Chloride 10 ml 12/18/23 09:00 12/19/23 00:19 Sodium Chloride Flush 0.9% 10 Ml Syringe IVP 10 ml 0100,0900,1700 ELIESER Administration - Physical Exam Comments/Other: Gen: NAD, sleeping CV: RRR Pulm: non labored, on RA. R CT to WS, no air leak Abd: soft, Non tender, no r/g Ext: no pain/fluctuance over areas of fluid collection identified on imaging Impression/Plan - Problem List Problem List: 38 y/o F with: 1. R UE, R LE fluid collections on CT scan - IR feels neither collection is amenable to drainage/aspiration - no cellulitis or pain at the time of my exam - recommend continued IV abx at this time and will continue to reassess for worsening. I would favor bedside attempt at aspiration over surgical I&D if either extremity demonstrates worsening pain after chest tube out, given paucity of infectious markers at this time. - ok for patient to take PO at this time 2. iatrogenic pneumothorax - CT without air leak, to water seal - AM CXR pending - lidoderm patch ordered to assist with pain control - if no increase in PTX on CXR this AM, I will remove chest tube which will improve the patient's pain General surgery will continue to follow closely while this patient is inpatient.
[2023-12-19] MEDS ORDERED: LIDOCAINE PATCH 4% TOP SCH (09:00)
--- NOTE | 2023-12-19 10:03 | XRAY Report ---
PROCEDURE: Chest 1V INDICATIONS: f/u PTX (CT to water seal) TECHNIQUE: One view of the chest was acquired. COMPARISON: Chest x-ray 12/18/2023.. FINDINGS: Surgical changes and devices: Left chest tube and right Port-A-Cath are unchanged. Lungs and pleura: Similar versus trace minimally enlarged right pneumothorax. Mediastinum: Mediastinal contours appear normal. Heart size is normal. Bones and chest wall: No suspicious bony lesions. Overlying soft tissues appear unremarkable. IMPRESSION: Similar versus trace minimally enlarged right pneumothorax. Reviewed by: Chloe Glover MD on 12/19/2023 10:02 AM PDT Approved by: Chloe Glover MD on 12/19/2023 10:02 AM PDT Station ID: [id number]
--- NOTE | 2023-12-19 13:16 | Discharge Plan ---
Discharge Plan Problem Reviewed?: Yes Disposition: Home, Self Care Condition: Serious Prescriptions: Doxycycline Hyclate 100 mg PO BID 10 Days #20 cap Lidocaine [Lidocan III] 1 each TP DAILY PRN #30 patch PRN Reason: Pain >8 Diet: Regular Activity Restrictions: No Restrictions Shower Restrictions: No Driving Restrictions: No Instruction Topics: Addiction Drug Abuse Tx, Cellulitis Dc Health Concerns: You have several abscesses that are secondary to injection drug use. These areas are not drainable, but we will put you on antibiotics. Your lung was collapsed because of a known complication with placement of the IV in your chest wall. You needed this IV so that she could get medications to get better. We were able to reinflate your lung and everything looks fine now. If you start to run fevers or have increasing pain or swelling you need to come back to the hospital. Plan of Treatment: I have sent an antibiotic to the [facility], [facility] in [place]. I would like you to get this picked up today and finish all of it. You need to take the medication twice a day. The medication will make you sensitive to the sun so you need to stay out of the sun while you are on this medication. Care Goals: We will send social workers to where you live to try to help you with your drug addiction. You should also consider getting a primary care doctor. You can be seen at any of the [facility] clinics including the [address] in [place] [address]. You just need to make an appointment No Smoking: If you smoke, Please STOP! Call for help.
--- NOTE | 2023-12-19 13:20 | DISCHARGE SUMMARY ---
Discharge Summary Admit Date: 12/18/23 Discharge Date: 12/19/23 Discharging Provider: FILEMON Ramirez Primary Care Provider: none, patient refuses Code Status: Attempt Resuscitation Condition at Discharge: Serious Discharge Disposition: 01 Home, Self Care - DIAGNOSES Admission Diagnoses: Abscesses multiple sites Microcytic anemia Homelessness Anxiety IV drug use Discharge Diagnoses with Status of Each Condition: (1) Abscess of multiple sites Impression: ED exam on 12/16 as she did not allow me to assess: "Right upper arm shows reproducible anterior shoulder induration but no significant fluctuance or w armth or discharge on examination. Right anterior thigh shows no signs of induration significant swelling or fluctuance on examination." CT showed 2.7 x 1.7 x 8.4 abcess in the lateral rectus femoris on the right and several small abscesses right deltoid. Dr Ridley, surgery, rounded on the patient this morning and recommends IR drainage for the abscesses if possible to avoid creating an open wound due to unstable housing and anticipated difficulty with outpatient wound management. IR contacted and requested ultrasound of the right thigh to evaluate if its drainable, stated the right deltoid abscesses are not suitable for drainage due to size and loculations. She was started on IV ceftriaxone and vancomycin in the ED and this will be continued. I will also swab nares for MRSA. Dr Moreno hopes the deltoid abscesses may respond to IV antibiotics without surgical intervention. (2) Pneumothorax due to and not concurrent with procedure Impression: Iatrogenic "moderate to large" right pneumothorax without mediastinal shift after right subclavian placement. Right chest tube placed by Dr. Garcia and currently to suction with intermittent air leak. Chest x-ray shows minimal residual right pneumothorax, lung sounds clear upper and lower morgan, unable to auscultate bases as patient refused that portion of the exam. O2 sats 99% on RA with no evident respiratory distress. She reports significant right sided chest pain but is not cooperative with further evalaution. Dr. Ridley will recheck the chest tube at noon and plans to see if she tolerates water seal. I will continue to monitor respiratory status and work to manage pain. (3) Acute pain Impression: Ms. Lazcano reports significant pain right sided chest pain and is uncooperative with most parts of the exam and questions, including evaluation of the areas of abscesses. She has a hx of opiate and methamphetamine abuse, making adequate pain management difficult. Her eyes were half open when I entered the room and she appeared to take a moment to rouse, unclear whether this is sedation from pain management, pain, or refusal to interact. Her dilaudid was increased fro 0.5 mg IV q 2 hrs to 1 mg q 3 hrs and I added IV toradol with a one time dose of 30 mg IV and then scheduled 15 mg IV doses q 8 hrs. I will continue to assess pain and work to manage it safely with consideration of high tolerance for narcotics. (4) Polysubstance abuse Impression: Hx IV methamphetamine and opiate abuse with multiple previous abscesses and difficult IV access. This is likely the underlying cause of her current abs cesses. A right subclavian was placed in the ED as peripheral labs and IV access was not possible. I will monitor her for withdrawals and manage appropriately as needed. (5)Homelessness (6) Anemia Impression: Hgb 9.9, likely LAURY as her iron is low at 28. Given her unstable housing situation and current polysubstance use, she likely has poor nutrition and dietary intake. She is above the transfusion threshold and does not require treatment at this time. Qualifiers: Iron deficiency anemia type: unspecified iron deficiency (7) Hyponatremia Impression: Mild hyponatremia with sodium of 134 on 12/16. This is likely due to poor nutrition and po intake. No treatment is needed at this time. I will continue to monitor daily during admission. (8) Substance induced mood disorder Impression: She reports a hx of anxiety and depression, likely exacerbated or due to her polysbustance use. She does not report taking any prescribed medications for it. She has been intermittently resistant to care and has yelled on several occasions since coming to the floor. This may complicate her care and lead her to make decisions which have detrimental health outcomes. - HPI History of Present Illness: From Telehealth H&P: H&P was conducted via video remotely. [place] is in [place] Phys[place] in [place]. FI[employer] INSPECTOR is at bedside. 38 yo F with PMH of IVDA and recurrent abscesses, Homelessness, Anxiety, Poly cythemia presented to the ER with c/o a 2 week h/o RUE and RLE pain and bulging. Pt uses IV Meth/Fentanyl. She last used Meth IV just before coming to the ER. No F/C, CP/SOB, Abdo pain, N/V. In June 2023 she underwent I&D of a right deltoid abscess. In the ER, WBC 11.6, Hgb 10.2, MCH 26.7, Na 134, UDS: +opiates, Benzos, BC pending. Pt refused IV access initially. CXR: NAD, +central line Right thigh U/S: subcutaneous hypoechoic mass 8 x 3 x 1 cm - suspect abscess or hematoma Right deltoid U/S: hypoechoic mass 3.2 x 1.1 cm - suspect abscess or hematoma General Surgery consulted on pt, recommended A/Bs, CT RUE and RLE to clarify lesions, then surgical drainage of abscesses. Pt was given IVF, Dilaudid, Doxy, Rocephin/Vanco in the ER. - ALLERGIES Allergies/Adverse Reactions: Allergies Allergy/AdvReac Type Severity Reaction Status Date / Time Sulfa (Sulfonamide Allergy Rash Verified 12/17/23 19:33 Antibiotics) - MEDICATIONS Home Medications: Ambulatory Orders Medication Instructions Recorded Confirmed Acetaminophen [Tylenol] 650 mg PO Q4HR PRN tab 12/19/23 Doxycycline Hyclate 100 mg PO BID 10 Days #20 cap 12/19/23 Lidocaine [Lidocan III] 1 each TP DAILY PRN #30 patch 12/19/23 hydrOXYzine PAMOATE [Vistaril] 25 mg PO Q6H PRN cap 12/19/23 - LABS Result Diagrams: 12/19/23 05:07 12/19/23 05:07 - SEPSIS Current Stage of Sepsis: Ruled out - TIME SPENT Time Spent in Discharge (Minutes): 30
[2023-12-19 15:24] VITALS: BP 133/97; O2SAT 97
== END 2023-12-19 14:58 | disposition home or self-care (01) | DRG 603 ==
LOC: ED 19:25 → MS2 12-18 02:29
PROVIDERS: ADMIT Internal Medicine; ATTEND Physician Assistant Medical
PROC: 0W9930Z Drainage of Right Pleural Cavity with Drainage Device, Percutaneous Approach (ICD-10-PCS; principal; 2023-12-18)
DX: L02.413 Cutaneous abscess of right upper limb (principal); L02.415 Cutaneous abscess of right lower limb; J93.83 Other pneumothorax; Z59.00 Homelessness unspecified; E87.1 Hypo-osmolality and hyponatremia; D50.9 Iron deficiency anemia, unspecified; F11.14 Opioid abuse with opioid-induced mood disorder; F15.14 Other stimulant abuse with stimulant-induced mood disorder; F41.9 Anxiety disorder, unspecified; F17.200 Nicotine dependence, unspecified, uncomplicated; Z32.02 Encounter for pregnancy test, result negative
CPT/HCPCS: 36415; 36556; 71045; 71250; 73201; 73701; 76882; 80048; 80053; 80306; 83540; 84466; 84703; 85025; 87040; 87640; 96374; 96375; 99285; A9270; J1170; J3370; J7120

== ENCOUNTER 2024-05-10 00:45 | Observation (INO) ==
--- NOTE | 2024-05-10 01:19 | ED Physician Documentation ---
History of Present Illness Stated complaint Stated Complaint: COLD/LETHARGIC Chief complaint Chief Complaint: General History obtained from History obtained from: Patient and EMS Additonal information Additional information: 39yF with pmh ivdu p/w lethargy per ems tonight. her significant other called ems and they came to the [facility] where she and her partner were out in the elements. she responded sluggishly to them but was AOX4 upon prompting. she endorses "lung pain" but otherwise has no other complaints. history limited by patient poor historian Meds/Allgy Home Medications Ambulatory Orders Medication Instructions Recorded Confirmed Lidocaine [Lidocan Iii] 1 ea TP DAILY PRN Pain >8 #30 12/19/23 patches acetaminophen 325 mg tablet 650 mg (2 x 325 mg) PO Q4HR PRN 12/19/23 Pain 1 to 4, or Fever doxycycline hyclate 100 mg capsule 100 mg PO BID 10 days #20 caps 12/19/23 hydroxyzine pamoate 25 mg capsule 25 mg PO Q6H PRN Anxiety 12/19/23 Allergies Allergies Allergy/AdvReac Type Severity Reaction Status Date / Time Sulfa (Sulfonamide Allergy Rash Verified 05/10/24 02:38 Antibiotics) [facility] Surgical History Surgical History (Updated 05/10/24 @ 00:59 by Maria Teresa Perrin RN) History of ankle surgery History of cholecystectomy Social History Social History (Updated 05/10/24 @ 00:59 by Maria Teresa Perrin RN) Smoking Status: Current every day smoker Number of Years Smoked: 19 How many cigarettes a day do you smoke? (20 cigarettes=1 Pk): 20 Do you dip or chew tobacco?: No Patient requests smoking cessation consult: No Initiate information on smoking cessation: No Relationship: Level: Independent Do you feel safe in your home environment?: No Suffered physical, verbal, emotional, or financial abuse?: No History of Abuse: No Substance Use Details: pt states she uses recreational drugs "they are a white substance" POLST Patient has POLST: No Exam Constitutional normal general appearance and no apparent distress disheveled appearing HENMT normocephalic and head/scalp atraumatic Eyes PERRL and EOMs intact bilaterally Respiratory breath sounds equal bilaterally, normal respiratory effort and clear to auscultation bilaterally Cardiovascular regular rhythm noted tachycardic rate Back/Pelvis spine normal to inspection Extremities normal to inspection track aguilar on extremities Neurology GCS 14 (E3, V5, M6) Psychiatry oriented x3 Skin skin color normal Results Vitals Vitals: Vital Signs - 24 hr 05/10/24 00:48 05/10/24 01:19 05/10/24 01:30 Temperature 37.3 C Temperature Source Oral Pulse Rate 98 90 Respiratory Rate 20 20 Blood Pressure 102/69 102/64 O2 Saturation 94 93 O2 Source Room air Room air If not protocol: Oxygen Flow, liters/minute Pain Intensity 7 7 05/10/24 01:37 05/10/24 01:47 05/10/24 01:57 Temperature Temperature Source Pulse Rate 90 86 81 Respiratory Rate 18 20 16 Blood Pressure 97/63 100/65 100/65 O2 Saturation 92 97 97 O2 Source Room air Nasal cannula Nasal cannula If not protocol: Oxygen Flow, liters/minute 2 2 Pain Intensity 05/10/24 02:40 Temperature 36.7 C Temperature Source Oral Pulse Rate 86 Respiratory Rate 18 Blood Pressure 97/64 O2 Saturation 97 O2 Source Nasal cannula If not protocol: Oxygen Flow, liters/minute 2 Pain Intensity Oxygen O2 Source Nasal cannula Labs Labs: Laboratory Tests 05/10/24 05/10/24 05/10/24 01:13 01:16 01:32 WBC 7.2 RBC 4.07 L Hgb 11.0 L Hct 33.4 L MCV 82.1 MCH 27.0 MCHC 32.9 RDW 14.2 Plt Count 165 MPV 9.0 Neut # (Auto) 6.2 Lymph # (Auto) 0.5 L Creek # (Auto) 0.5 Eos # (Auto) 0.0 Baso # (Auto) 0.0 Absolute Nucleated RBC 0.00 Nucleated RBC % 0.0 VBG pH 7.538 H VBG pCO2 30.2 L VBG pO2 90.0 H VBG HCO3 25.9 VBG Total CO2 26.9 VBG O2 Saturation 98.0 H VBG Base Excess 3.2 H Sodium 131 L Potassium 3.0 L Chloride 96 L Carbon Dioxide 26 Anion Gap 9.0 BUN 11 Creatinine 0.7 Estimated GFR (MDRD) 93 Glucose 112 H Lactic Acid 0.6 Calcium 8.3 L Total Bilirubin 0.4 AST 12 ALT 7 L Alkaline Phosphatase 48 Total Protein 6.8 Albumin 3.7 Globulin 3.1 Albumin/Globulin Ratio 1.2 Nasal Adenovirus (PCR) NOT DETECTED Nasal B. parapertussis DNA (PCR) NOT DETECTED Nasal Coronavir 229E PCR NOT DETECTED Nasal Coronavir HKU1 PCR NOT DETECTED Nasal Coronavir NL63 PCR NOT DETECTED Nasal Coronavir OC43 PCR NOT DETECTED Nasal Enterovir/Rhinovir PCR NOT DETECTED Nasal Influenza A H3 PCR DETECTED A Nasal Influenza B PCR NOT DETECTED Nasal Influenza A PCR NOT DETECTED Nasal Parainfluen 1 PCR NOT DETECTED Nasal Parainfluen 2 PCR NOT DETECTED Nasal Parainfluen 3 PCR NOT DETECTED Nasal Parainfluen 4 PCR NOT DETECTED Nasal RSV (PCR) NOT DETECTED Nasal B.pertussis DNA PCR NOT DETECTED Nasal C.pneumoniae (PCR) NOT DETECTED Antonio Human Metapneumo PCR NOT DETECTED Nasal M.pneumoniae (PCR) NOT DETECTED Nasal SARS-CoV-2 (PCR) NOT DETECTED Ethyl Alcohol < 10.0 PD Medical Decision Making ED course ED course: 39yF with pmh ivdu presents with lethargy, found in the pate by ems with limited history, stating her "lungs hurt". patient is tachycardic and tachypneic to 30 on arrival, with o2 sat 94% RA, dropping to 91% RA intermittently. placed patient on 2L nasal cannula. she does have R sided pneumonia on cxr and rocephin/azithro was ordered. plan to admit telehealth. Discharge Plan Discharge Patient Disposition: 66 [facility] DC/Xfer Condition: Fair Clinical Impression: Pneumonia, Hypoxia, Influenza A Prescriptions: No Action acetaminophen 325 MG tablet 650 mg PO Q4HR PRN (Reason: Pain 1 to 4, or Fever) 0RF hydroxyzine pamoate 25 MG capsule 25 mg PO Q6H PRN (Reason: Anxiety) 0RF Lidocaine [Lidocan Iii] 1 EACH Adh..Patch 1 ea TP DAILY PRN (Reason: Pain >8) Qty: 30 0RF Rx Instructions: Place one patch on painful area and leave on for 12 hours, then take off for 12 hours. doxycycline hyclate 100 MG capsule 100 mg PO BID 10 Days Qty: 20 0RF Rx Instructions: finish all of this medication Print Language: Barbadian Stand Alone Forms: PCP List
[2024-05-10 01:25] LABS: BASOPHILS % (AUTO) 0.1 %; HCT - HEMATOCRIT 33.4 % (37.0-47.0); LYMPHOCYTES # (AUTO) 0.5 10^3/uL (1.5-3.5); LYMPHOCYTES % (AUTO) 6.4 %; MEAN CORPUSCULAR HGB CONC 32.9 g/dL (32.0-36.0); MEAN CORPUSCULAR VOLUME 82.1 fL (81.0-99.0); MONOCYTES # (AUTO) 0.5 10^3/uL (0.0-1.0); MONOCYTES % (AUTO) 6.7 %; NEUTROPHILS # (AUTO) 6.2 10^3/uL (1.5-6.6); NEUTROPHILS % (AUTO) 86.4 %; PLT - PLATELET COUNT 165 10^3/uL (130-450); RED BLOOD COUNT 4.07 10^6/uL (4.20-5.40); RED CELL DISTRIBUTION WIDTH 14.2 % (12.0-15.0); WHITE BLOOD COUNT 7.2 x10^3/uL (4.8-10.8)
[2024-05-10] MEDS: SODIUM CHLORIDE 0.9% IV STA (01:29)
[2024-05-10] MEDS: ACETAMINOPHEN 325 MG TABLET PO STA (01:30)
[2024-05-10 01:44] LABS: ALBUMIN 3.7 g/dL (3.2-5.5); ALBUMIN/GLOBULIN RATIO 1.2 (1.0-2.2); ALKALINE PHOSPHATASE 48 IU/L (42-121); ALT ALANINE AMINOTRANSFERASE 7 IU/L (10-60); AST ASPARTATE AMINOTRANSFERASE 12 IU/L (10-42); BILIRUBIN,TOTAL 0.4 mg/dL (0.2-1.0); BUN - BLOOD UREA NITROGEN 11 mg/dL (6-20); CALCIUM 8.3 mg/dL (8.5-10.3); CARBON DIOXIDE - CO2 26 mmol/L (21-32); CHLORIDE 96 mmol/L (101-111); CREATININE 0.7 mg/dL (0.6-1.3); ETOH - ETHANOL < 10.0 mg/dL; GFR - MDRD 93 (>89); GLUCOSE 112 mg/dL (74-104); SODIUM 131 mmol/L (135-145); TOTAL PROTEIN 6.8 g/dL (6.4-8.9)
--- NOTE | 2024-05-10 01:44 | XRAY Report ---
PROCEDURE: XR Chest 1V INDICATIONS: "lung pain" TECHNIQUE: One view of the chest was acquired. COMPARISON: Chest x-ray 12/19/2023. FINDINGS: Surgical changes and devices: None. Lungs and pleura: No pleural effusions or pneumothorax. Low lung volumes with mild hazy opacity at t he medial right lung base. Mediastinum: Mediastinal contours appear normal. Heart size is normal. Bones and chest wall: No suspicious bony lesions. Overlying soft tissues appear unremarkable. IMPRESSION: Lung volumes with mild hazy opacity at the medial right lung base on this single view radiograph. Fin dings may represent pneumonia. Reviewed by: Veda Dale MD, PhD on 05/10/2024 1:43 AM PST Approved by: Veda Dale MD, PhD on 05/10/2024 1:43 AM PST Station ID: [id number]
[2024-05-10 01:46] LABS: VBG BASE EXCESS 3.2 mmol/L (-2 - +2); VBG PCO2 30.2 mmHg (41-51); VBG PH 7.538 (7.31-7.41); VBG TOTAL CO2 26.9 mmol/L (24-29)
[2024-05-10] MEDS ORDERED: cefTRIAXone 2 GM VIAL ONE (01:51)
[2024-05-10] MEDS: cefTRIAXone 2 GM in SODIUM CHLORIDE 0.9% MINIBAG 100 ML IV STA (01:53)
[2024-05-10 02:16] LABS: B. PARAPERTUSSIS- RESP PCR PAN NOT DETECTED; B. PERTUSSIS- RESP PCR PANEL NOT DETECTED; C. PNEUMONIAE- RESP PCR PANEL NOT DETECTED; CORONAVIRUS 229E-RESP PCR NOT DETECTED; CORONAVIRUS HKU1-RESP PCR NOT DETECTED; CORONAVIRUS NL63-RESP PCR NOT DETECTED; CORONAVIRUS OC43-RESP PCR NOT DETECTED; HUMAN METAPNEUMOVIRUS NOT DETECTED; INFLUENZA A H3- RESP PCR PANEL DETECTED; INFLUENZA A- RESP PCR PANEL NOT DETECTED; INFLUENZA B - RESP PCR PANEL NOT DETECTED; M. PNEUMONIAE- RESP PCR PANEL NOT DETECTED; PARAINFLUENZA VIRUS 1 NOT DETECTED; PARAINFLUENZA VIRUS 2 NOT DETECTED; PARAINFLUENZA VIRUS 4 NOT DETECTED; RHINOVIRUS/ENTEROVIRUS NOT DETECTED; RSV- RESP PCR PANEL NOT DETECTED; SARS-CoV-2 -RESP PCR PANEL NOT DETECTED
[2024-05-10] MEDS: AZITHROMYCIN INJ 500 MG in SODIUM CHLORIDE 0.9% 250 ML IV STA (02:33)
[2024-05-10] MEDS ORDERED: hydrOXYzine PAMOATE 25 MG CAPSULE PO PRN (02:43)
[2024-05-10] MEDS ORDERED: ACETAMINOPHEN 650 MG SUPP PR PRN (02:44)
[2024-05-10] MEDS ORDERED: ONDANSETRON 4 MG/2 ML VIAL IVP PRN (02:44)
[2024-05-10] MEDS ORDERED: BENZONATATE 100 MG CAPSULE PO PRN (02:44)
[2024-05-10] MEDS ORDERED: BENZOCAINE/MENTHOL LOZENGE MM PRN (02:49)
[2024-05-10] MEDS ORDERED: MELATONIN 3 MG TABLET PO PRN (02:49)
[2024-05-10] MEDS ORDERED: PHENOL THROAT SPRAY 177 ML MM PRN (02:49)
--- NOTE | 2024-05-10 02:58 | HISTORY & PHYSICAL EXAMINATION ---
Chief Complaint Chief Complaint Chief Complaint: weakness, "lung hurts," sob History of Present Illness History of Present Illness HPI Comment/Other: pt with h/o fentanyl, heroin, meth abuse, presents to hospital with ams. was brought by ems, who reported that pt's SO called d/t concern for confusion and sob and "lung pain," as expressed by pt. pt states they were out in the wood but unable to explain why. she does report using fentanyl and heroin. no abd pain, no dysuria or hematuria. she does feel nauseated and has HE. no trauma or falls reported. though pt is tired / lethargic, no focal deficits noted or reported and she is able to answer questions and follow directions. Review of Systems Status of ROS: 10 or more systems reviewed and unremarkable except as noted in history and below [facility] Surgical History Surgical History (Updated 05/10/24 @ 00:59 by Maria Teresa Perrin RN) History of ankle surgery History of cholecystectomy Social History Social History (Updated 05/10/24 @ 00:59 by Maria Teresa Perrin RN) Smoking Status: Current every day smoker Number of Years Smoked: 19 How many cigarettes a day do you smoke? (20 cigarettes=1 Pk): 20 Do you dip or chew tobacco?: No Patient requests smoking cessation consult: No Initiate information on smoking cessation: No Relationship: Level: Independent Do you feel safe in your home environment?: No Suffered physical, verbal, emotional, or financial abuse?: No History of Abuse: No Substance Use Details: pt states she uses recreational drugs "they are a white substance" POLST Patient has POLST: No Meds/Allgy Home Medications Ambulatory Orders Medication Instructions Recorded Confirmed Lidocaine [Lidocan Iii] 1 ea TP DAILY PRN Pain >8 #30 12/19/23 patches acetaminophen 325 mg tablet 650 mg (2 x 325 mg) PO Q4HR PRN 12/19/23 Pain 1 to 4, or Fever doxycycline hyclate 100 mg capsule 100 mg PO BID 10 days #20 caps 12/19/23 hydroxyzine pamoate 25 mg capsule 25 mg PO Q6H PRN Anxiety 12/19/23 Allergies Allergies Allergy/AdvReac Type Severity Reaction Status Date / Time Sulfa (Sulfonamide Allergy Rash Verified 05/10/24 02:38 Antibiotics) Exam Constitutional fatigue, tired, lethargic but able to answer simple questions and follow commands HENMT normocephalic and head/scalp atraumatic Eyes EOMs intact bilaterally Neck/C-Spine visual inspection normal Respiratory no use of accessory muscles details per ed exam Cardiovascular details per ed exam Extremities normal to inspection and no deformity Neurology no obvious focal deficits Psychiatry lethargic but able to answer simple questions and follow commands. slow speech patterns Conclusion/Plan Problem List (1) Influenza A: (2) Pneumonia: (3) Hypoxia: Lab Results 05/10/24 01:13 05/10/24 01:13 Other Other Results/Comments: pt with - acute hypoxemic resp failure in setting of pna + flu (below) on 2L via NC contributory to encephalopathy as well (below) - toxic, metabolic encephalopathy in setting of pna, flu, and possibly recent drug usage (pending recent uds) no focal neuro deficits monitor at this time able to answer simple questions with repeated reorienting ammonia pending - cap contributory to above also complicated by flu (below) rocephin + azithromycin started - influenza in setting of and contributory to above tamiflu started - polysubstance abuse 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
[2024-05-10 03:15] LABS: CHOLESTEROL 103 mg/dL; HDL CHOLESTEROL 26 mg/dL; LDL CHOLESTEROL,CALCULATED 59 mg/dL; LDL/HDL RATIO 2.3 (<4.4); TRIGLYCERIDES 88 mg/dL; VLDL CHOLESTEROL 18 mg/dL
[2024-05-10 03:45] LABS: THYROID STIMULATING HORMONE 2.02 uIU/mL (0.34-5.60)
[2024-05-10] MEDS: LACTATED RINGERS 1,000 ML IV SCH (05:11)
[2024-05-10] MEDS: OSELTAMIVIR 75 MG CAPSULE PO SCH ×2 (05:11→09:10)
[2024-05-10] MEDS: SODIUM CHLORIDE 0.9% 1,000 ML IV SCH ×2 (05:20→21:05)
[2024-05-10] MEDS: oxyCODONE 5 MG TABLET PO PRN (05:21)
[2024-05-10 06:19] LABS: BASOPHILS % (AUTO) 0.3 %; HGB - HEMOGLOBIN 9.5 g/dL (12.0-16.0); LYMPHOCYTES # (AUTO) 0.6 10^3/uL (1.5-3.5); MEAN CORPUSCULAR HEMOGLOBIN 27.4 pg (27.0-31.0); MEAN CORPUSCULAR HGB CONC 32.8 g/dL (32.0-36.0); MEAN CORPUSCULAR VOLUME 83.6 fL (81.0-99.0); MONOCYTES # (AUTO) 0.5 10^3/uL (0.0-1.0); MONOCYTES % (AUTO) 7.7 %; NEUTROPHILS # (AUTO) 5.2 10^3/uL (1.5-6.6); NEUTROPHILS % (AUTO) 81.5 %; PLT - PLATELET COUNT 138 10^3/uL (130-450); RED BLOOD COUNT 3.47 10^6/uL (4.20-5.40); RED CELL DISTRIBUTION WIDTH 14.4 % (12.0-15.0); WHITE BLOOD COUNT 6.4 x10^3/uL (4.8-10.8)
[2024-05-10 06:40] LABS: ALBUMIN 3.1 g/dL (3.2-5.5); ALBUMIN/GLOBULIN RATIO 1.1 (1.0-2.2); BILIRUBIN,TOTAL 0.3 mg/dL (0.2-1.0); CALCIUM 7.3 mg/dL (8.5-10.3); CREATININE 0.5 mg/dL (0.6-1.3); POTASSIUM 3.2 mmol/L (3.5-4.5); TOTAL PROTEIN 5.9 g/dL (6.4-8.9)
[2024-05-10] MEDS: PANTOPRAZOLE 40 MG TABLET PO SCH (07:08)
[2024-05-10 07:19] LABS: BILIRUBIN,URINE NEGATIVE (NEGATIVE); GLUCOSE, URINE (UA) NEGATIVE (NEGATIVE); KETONES,URINE (UA) 15 mg/dL (NEGATIVE); LEUKOCYTE ESTERASE, URINE TRACE (NEGATIVE); NITRITE,URINE NEGATIVE (NEGATIVE); OCCULT BLOOD,URINE SMALL (NEGATIVE); PROTEIN,URINE NEGATIVE (NEGATIVE); UROBILINOGEN,URINE 0.2 (NORMAL) E.U./dL (NORMAL)
[2024-05-10 07:20] LABS: CLARITY,URINE CLEAR (CLEAR); HCG UR QUAL NEGATIVE
[2024-05-10 07:28] LABS: AMPHETAMINE SCREEN,URINE POSITIVE (NEGATIVE); METHAMPHETAMINES SCREEN, URINE POSITIVE (NEGATIVE); TRICYCLIC ANTIDEPRESSANT,URINE POSITIVE (NEGATIVE)
[2024-05-10 07:29] LABS: BARBITURATE SCREEN,UR NEGATIVE (NEGATIVE); BENZODIAZEPINES SCREEN, URINE NEGATIVE (NEGATIVE); BUPRENORPHINE SCREEN, URINE NEGATIVE (NEGATIVE); COCAINE SCREEN URINE NEGATIVE (NEGATIVE); METHADONE SCREEN, URINE NEGATIVE (NEGATIVE); OPIATE SCREEN, URINE NEGATIVE (NEGATIVE); OXYCODONE SCREEN, URINE NEGATIVE (NEGATIVE); THC CANNABINOID SCREEN, URINE NEGATIVE (NEGATIVE)
[2024-05-10 07:38] LABS: RBC,URINE 0-5 /HPF (0-5)
[2024-05-10 07:39] LABS: BACTERIA,URINE Few /HPF (None Seen); SQUAMOUS EPITHELIAL CELL,UR FEW Squamous (<= Few)
[2024-05-10] MEDS: ASCORBIC ACID 500 MG TABLET PO SCH (09:10)
[2024-05-10] MEDS: POTASSIUM CHLORIDE 20 MEQ TABLET PO ONE (09:10)
[2024-05-10] MEDS: guaiFENesin 600 MG TABLET PO SCH (09:10)
[2024-05-10] MEDS: LACTOBACILLUS RHAMNOSUS GG CAPSULE PO SCH (09:10)
[2024-05-10] MEDS: ALBUTEROL 1 PUFF INH PRN (09:10)
[2024-05-10] MEDS: MULTIVITAMIN W/MINERALS TABLET PO SCH (09:10)
[2024-05-10] MEDS: ENOXAPARIN 40 MG/0.4 ML SYRINGE SUBQ SCH (09:12)
[2024-05-10] MEDS: IBUPROFEN 400 MG TABLET PO PRN (09:18)
--- NOTE | 2024-05-10 11:20 | Discharge Summary ---
Discharge Summary Admit Date: 05/10/24 Discharge Date: 05/11/24 Discharging Provider: Dr. Gomes Primary Care Provider: None Code Status: Attempt Resuscitation Discharge Facility Name: Home, self care DIAGNOSES Admission Diagnoses: Acute hypoxemic respiratory failure Toxic, metabolic encephalopathy Community-acquired pneumonia Influenza Polysubstance abuse Discharge Diagnoses with Status of Each Condition: Influenza Acontinue 5 days of Tamiflu 75 mg twice daily. Sent to pharmacy for remaining prescription. Pneumoniacontinue azithromycin for 3 days, Augmentin for total 5-day course of antibiotics. Also sent to pharmacy. Acute hypoxic respiratory failureresolved. Patient is breathing comfortably on room air. Polysubstance abusedrug screen positive for methamphetamines, amphetamines, benzodiazepines. Former history of cocaine use per chart review as well. Patient is not interested in rehab at this time. Continue with counseling of staying from drug use. HPI History of Present Illness: Per Dr. Perez: pt with h/o fentanyl, heroin, meth abuse, presents to hospital with ams. was brought by ems, who reported that pt's SO called d/t concern for confusion and sob and "lung pain," as expressed by pt. pt states they were out in the wood but unable to explain why. she does report using fentanyl and heroin. no abd pain, no dysuria or hematuria. she does feel nauseated and has HE. no trauma or falls reported. though pt is tired / lethargic, no focal deficits noted or reported and she is able to answer questions and follow directions. CONSULTS | PROCEDURES Procedures: Chest x-ray HOSPITAL COURSE Hospital Course: Patient is a 39-year-old female with a history of polysubstance abuse including methamphetamines, amphetamines, cocaine who presented with shortness of breath, cough, fevers, chills, malaise. She was found to be influenza A positive. She was also treated for a bacterial pneumonia. She received a few doses of IV Rocephin and azithromycin, this was transition to oral azithromycin and Augmentin. She also received Tamiflu. She was quickly weaned off her 2 L of oxygen to room air. During her stay, she did become hypotensive. She required some IV fluids. She did appear dehydrated. After IV fluid resuscitation, and her when her appetite returned, and more adequate p.o. intake, patient's blood pressure became normotensive as well. Overall, she felt improved, and felt ready to go. She was deemed stable for discharge. She was advised to follow-up closely with the primary care provider. She was provided a list of providers in the area. ALLERGIES Allergies Allergy/AdvReac Type Severity Reaction Status Date / Time Sulfa (Sulfonamide Allergy Rash Verified 05/10/24 02:38 Antibiotics) MEDICATIONS Ambulatory Orders Medication Instructions Recorded Confirmed amoxicillin 500 mg-potassium 1 tab PO BID 4 days #8 tabs 05/10/24 clavulanate 125 mg tablet (Augmentin) azithromycin 500 mg tablet 500 mg PO DAILY 2 days #2 tabs 05/10/24 oseltamivir 75 mg capsule 75 mg PO BID 4 days #8 caps 05/10/24 PHYSICAL EXAM AT DISCHARGE General Appearance: positive No acute distress and Alert; negative Anxious Eyes Bilateral: positive Normal inspection, PERRL and EOMI ENT: positive ENT inspection nml, Pharynx nml and No signs of dehydration Neck: positive Nml inspection, Thyroid nml and No JVD Respiratory: positive Chest non-tender, No respiratory distress and Breath sounds nml; negative Wheezes, Rales or Rhonchi Cardiovascular: positive Regular rate & rhythm, No murmur and No gallop Peripheral Pulses: positive 2+ Abdomen: positive Non-tender; negative Guarding, Rebound, Hepatomegaly, Splenomegaly or Mass Back: positive Nml inspection; negative CVA tenderness (R) or CVA tenderness (L) Skin: positive Color nml, No rash and Warm Extremities: positive Non-tender, Full ROM and No pedal edema Neurologic/Psychiatric: positive Oriented x3 and Mood/affect nml LABS 05/10/24 05:58 05/10/24 05:58 DIAGNOSTIC IMAGING Diagnostic Imaging Results: Final report reviewed QUALITY (Female Hip Fx Only) Was patient sent home on osteoporosis medication?: No FOLLOW UP Follow Up: Follow-up with a primary care physician. TIME SPENT Time Spent in Discharge (Minutes): 40 Discharge Plan Discharge Patient Disposition: Home, Self Care Condition: Fair Prescriptions: New oseltamivir 75 mg Capsule 75 mg PO BID 4 Days Qty: 8 0RF azithromycin 500 mg tablet 500 mg PO DAILY 2 Days Qty: 2 0RF amoxicillin-pot clavulanate [Augmentin] 500-125 mg tablet 1 tab PO BID 4 Days Qty: 8 0RF Diet: Regular Health Concerns: You came in because you were having trouble breathing, had some chills, not feeling well. You required oxygen initially. You were found to have influenza A, an upper respiratory viral infection. We are also treating you for possible bacterial pneumonia. I have sent 3 more days of Tamiflu, the antiviral medication to your pharmacy. I have also sent 1 more days of azithromycin, one of your antibiotics, as well as Augmentin for 3 more days. Please continue to hydrate adequately, as well as you can. Please abstain from any recreational drug use including methamphetamines. If you experience any further shortness of breath, chest pain, lightheadedness, episodes of passing out, please return to the emergency room. We are glad you are feeling better, thank you for allowing us to take care of you. Print Language: Lithuanian Patient Instructions: ED Influenza Ch, ED Pneumonia Ch Stand Alone Forms: PCP List
--- NOTE | 2024-05-10 12:07 | PHARMACY PROGRESS NOTE ---
Best Possible Medication History Admit Date and Time: 05/10/24 0244 Home Medications Medication Instructions Recorded Confirmed Type No Known Home Medications 05/10/24 05/10/24 History Processed by: Pharmacy Medications reviewed in ED?: No Medication History completed: Yes Patient Interview: Completed Secondary Source(s): Insurance records [facility] Statement: As the person ultimately responsible for medication therapy, providers are able to order a medication from an existing home medication list in [facility] via the "Reconcile Routine" prior to Confirmation of that medication by therapeutic support staff. Such practice is discouraged except when the physician, in their clinical judgment, deems that a medical need exists for a medication without regard to previous use.
[2024-05-10 15:14] LABS: ESTIMATED AVERAGE GLUCOSE 91 mg/dL (70-100); HEMOGLOBIN A1c% 4.8 % (4.27-6.07)
[2024-05-10] MEDS: ACETAMINOPHEN 325 MG TABLET PO PRN (15:56)
--- NOTE | 2024-05-10 17:00 | MISCELLANEOUS PROVIDER NOTE ---
Miscellaneous Provider Note - Note: Called for assist with PIV placement. Multiple failed attempts and IV infiltr ations. US used to place 20ga at L FA, attempt x1, secured. Easily aspirates and flushed blood after cap applied, secured. Patient tolerated without complaint. RN notified of new IV.
[2024-05-10] MEDS: SODIUM CHLORIDE 0.9% 1,000 ML IV ONE (17:07)
--- NOTE | 2024-05-10 18:44 | MISCELLANEOUS PROVIDER NOTE ---
Miscellaneous Provider Note - Note: Assist with PIV after last infiltrated. New 20ga 1.88" placed at R basilic v. Easily aspirates and flushes with cap. Secured. Patient tolerated, RN notified.
[2024-05-10] MEDS: SODIUM CHLORIDE 0.9% 500 ML IV ONE (19:54)
[2024-05-10] MEDS: cefTRIAXone 1 GM in SODIUM CHLORIDE 0.9% MINIBAG 100 ML IV SCH (21:02)
[2024-05-10] MEDS: AZITHROMYCIN INJ 500 MG in SODIUM CHLORIDE 0.9% 250 ML IV SCH (21:52)
--- NOTE | 2024-05-11 01:09 | PROVIDER PROGRESS NOTE ---
Retail General Manager Note Retail General Manager Note Retail General Manager Note: per nurse "Dx: PNA, FLU A Hx: polysubstance abuse Patient's BP has been on the soft side. Her current BP is 85/73. P is 74. NS @ 150ml/hr infusing. She received a total of 1500ml bolus from the previous shift. Please review. Thank you." ns bolus 1 L now albumin 25% x 1 dose now
[2024-05-11] MEDS: ALBUMIN 25% 12.5 GM/50 ML VIAL IV STA (02:08)
[2024-05-11] MEDS: SODIUM CHLORIDE 0.9% 1,000 ML IV ONE ×2 (02:08→08:07)
[2024-05-11] MEDS: POTASSIUM CHLORIDE 20 MEQ TABLET PO ONE (08:07)
--- NOTE | 2024-05-11 09:44 | PROVIDER PROGRESS NOTE ---
Subjective Subjective Subjective: Patient feels better today. She states her breathing is better. She is coughing less. She is not dizzy or lightheaded. She is able to get up. She is eating and drinking well. She is looking forward to going home. Current Medications Current Medications Current Medications: Current Medications Generic Name Dose Route Start Last Admin Trade Name Freq PRN Reason Stop Dose Admin Acetaminophen 650 mg 05/10/24 09:48 05/11/24 00:12 Acetaminophen 325 Mg Tablet PO 650 mg Q4HR PRN Administration Pain or Fever > 38C (100.4F) Albuterol 2 puffs 05/10/24 02:49 05/10/24 09:10 Albuterol 1 Puff INH 2 puffs Q2H PRN Administration sob Ascorbic Acid 500 mg 05/10/24 09:00 05/11/24 08:08 Ascorbic Acid 500 Mg Tablet PO 500 mg DAILY ELIESER Administration Benzonatate 100 mg 05/10/24 02:44 Benzonatate 100 Mg Capsule PO TID PRN Cough Enoxaparin Sodium 40 mg 05/10/24 09:00 05/10/24 09:12 Enoxaparin 40 Mg/0.4 Ml Syringe SUBQ Not Given DAILY ELIESER Guaifenesin 600 mg 05/10/24 09:00 05/11/24 08:08 Guaifenesin 600 Mg Tablet PO 600 mg BID ELIESER Administration Hydroxyzine Pamoate 25 mg 05/10/24 02:43 Hydroxyzine Pamoate 25 Mg Capsule PO Q6H PRN Anxiety Azithromycin 500 mg/ Sodium 250 mls @ 250 mls/hr 05/10/24 21:00 05/10/24 23:00 Chloride IV 05/11/24 21:59 Infused HS ELIESER Infusion Ceftriaxone Sodium 1 gm/ 100 mls @ 200 mls/hr 05/10/24 21:00 05/10/24 22:01 Sodium Chloride IV 05/13/24 21:29 Infused HS ELIESER Infusion Sodium Chloride 1,000 mls @ 150 mls/hr 05/10/24 19:00 05/11/24 05:15 Normal Saline 0.9% IV 150 mls/hr .Q6H40M ELIESER Infusion Ibuprofen 400 mg 05/10/24 02:49 05/10/24 17:12 Ibuprofen 400 Mg Tablet PO 400 mg Q6HR PRN Administration Moderate Pain (Level 4-6) Lactobacillus Rhamnosus 1 cap 05/10/24 09:00 05/11/24 08:08 Lactobacillus Rhamnosus Gg Capsule PO 1 cap DAILY ELIESER Administration Melatonin 3 mg 05/10/24 02:49 Melatonin 3 Mg Tablet PO QPM PRN sleep Multivitamins/Minerals 1 tab 05/10/24 08:00 05/11/24 08:07 Multivitamin W/Minerals Tablet PO 1 tab DAILYWM ELIESER Administration Ondansetron HCl 4 mg 05/10/24 02:44 Ondansetron 4 Mg/2 Ml Vial IVP Q8H PRN Nausea / Vomiting Oseltamivir Phosphate 75 mg 05/10/24 09:00 05/11/24 08:08 Oseltamivir 75 Mg Capsule PO 75 mg BID ELIESER Administration Oxycodone HCl 5 mg 05/10/24 02:49 05/10/24 13:27 Oxycodone 5 Mg Tablet PO 5 mg Q4H PRN Administration moderate to severe pain Pantoprazole Sodium 40 mg 05/10/24 07:00 05/11/24 06:19 Pantoprazole 40 Mg Tablet PO 40 mg QDAC ELIESER Administration Phenol/Menthol 1 sprays 05/10/24 02:49 Phenol Throat Hydes 177 Ml MM Q4HR PRN Mouth Sore Pain Throat Lozenges 1 lozenge 05/10/24 02:49 Benzocaine/Menthol Lozenge MM Q2HR PRN Mouth Sore Pain Objective Vital Signs/Intake & Output Reviewed Vital Signs: Yes Vital Signs: Vital Signs x48h Temp Pulse Pulse Resp BP Pulse Ox 05/11/24 07:48 97.9 F 66 16 98/59 L 93 05/11/24 06:20 61 81/46 L 05/11/24 05:00 97.7 F 60 18 88/53 L 95 Intake & Output: Intake & Output 05/08/24 05/09/24 05/10/24 05/11/24 23:59 23:59 23:59 23:59 Intake Total 6560 / 6560 2265 / 2265 Output Total 551 / 551 Balance 6009 / 6009 2265 / 2265 Weight (kg) 60.5 kg Objective General Appearance: positive No acute distress, Alert and Other (Sleepy, but responsive to verbal stimuli, and is able to engage in conversation) Eyes Bilateral: positive Normal inspection, PERRL and EOMI ENT: positive ENT inspection nml, Pharynx nml and Dry mucous membranes Neck: positive Nml inspection, Thyroid nml and No JVD Respiratory: positive Chest non-tender, No respiratory distress, Breath sounds nml and Rales (Mild bibasilar crackles); negative Wheezes or Rhonchi Cardiovascular: positive Regular rate & rhythm, No murmur and No gallop Abdomen: positive Non-tender; negative Tenderness, Guarding, Rebound, Hepatomegaly, Splenomegaly or Mass Back: positive Nml inspection; negative CVA tenderness (R) or CVA tenderness (L) Skin: positive Color nml, No rash, Warm and Dry Extremities: positive Non-tender, Full ROM and No pedal edema Neurologic/Psychiatric: positive Oriented x3 and Mood/affect nml Lab Results 05/10/24 05:58 05/10/24 05:58 Other Labs: Lab Results x24hrs 05/10/24 Range/Units 01:13 Estimat Average Glucose 91 (70-100) mg/dL Hemoglobin A1c % 4.8 (4.27-6.07) % Diagnostic Imaging Diagnostic Imaging Results: positive Final report reviewed Assessment/Plan Problem List (1) Influenza A: Impression: Patient presented with shortness of breath, cough, fevers, chills, lies. Found to be influenza A positive. Was initially hypoxic requiring 2 L, now on room air. Continue Tamiflu 75 mg twice daily for 5 days. Patient does appear volume depleted, as well as dehydrated. Blood pressure has been soft. Continue IV fluid resuscitation. (2) Pneumonia: Impression: Chest x-ray on exam does show mild hazy opacity at medial right lung base. Concern for superimposed bacterial pneumonia. Received 3 days of azithromycin. Received 2 days of Rocephin. Continue 3 more days of oral Augmentin. Qualifiers: Pneumonia type: due to unspecified organism Laterality: right Lung location: lower lobe of lung Qualified Code(s): J18.9 - Pneumonia, unspecified organism (3) Acute hypoxic respiratory failure: Impression: Resolved. Secondary to above. (4) Polysubstance abuse: Impression: Drug screen positive for methamphetamines, amphetamines, as well as benzodiazepines. Former history of cocaine abuse per chart review as well. Patient is not interested in rehabilitation at this time. Continue to school guidance counselor on abstaining from drug use.
[2024-05-11 14:38] VITALS: BP 112/74; TEMP 97.5; O2SAT 100
[2024-05-11] MEDS ORDERED: AMOX/CLAV 875 MG/125 MG TABLET PO SCH (21:00)
[2024-05-11] MEDS ORDERED: AZITHROMYCIN 250 MG TABLET PO SCH (21:00)
== END 2024-05-11 16:12 | disposition home or self-care (01) ==
LOC: ED 00:45 → MS2 00:45
PROVIDERS: ADMIT Student in an Organized Health Care Education/Training Program; ATTEND Student in an Organized Health Care Education/Training Program
DX: J10.08 Influenza due to other identified influenza virus with other specified pneumonia; J96.01 Acute respiratory failure with hypoxia; F19.10 Other psychoactive substance abuse, uncomplicated; F15.10 Other stimulant abuse, uncomplicated; G92.8 Other toxic encephalopathy; F17.210 Nicotine dependence, cigarettes, uncomplicated; J15.9 Unspecified bacterial pneumonia; F13.10 Sedative, hypnotic or anxiolytic abuse, uncomplicated; I95.9 Hypotension, unspecified